=== PATIENT | male | born 1955 | race Caucasian/White ===

== ENCOUNTER → 2021-04-11 | Outpatient (CLI) | payer MEDICARE ==
--- NOTE | 2021-04-11 17:59 | ECHOF ---
Referral Reason:R6.00 Localized edema R53.83Other fatigue MEASUREMENTS -------- HEIGHT: 172.7 cm WEIGHT: 117.9 kg BP: 140/84 RVIDd: 3.4 cm (< 3.3) IVSd: 1.4 cm (0.6 - 1.1) LVIDd: 4.5 cm (3.9 - 5.3) LVPWd: 1.2 cm (0.6 - 1.1) IVSs: 2.0 cm LVIDs: 3.0 cm LVPWs: 1.7 cm LA Diam: 3.5 cm (2.7 - 3.8) LAESV Index (A-L): 25.97 ml/m Ao Diam: 3.7 cm (2.0 - 3.7) AV Cusp: 2.5 cm (1.5 - 2.6) MV EXCURSION: 15.965 mm (> 18.000) MV EF SLOPE: 42 mm/s (70 - 150) EPSS: 0.9 cm MV E Sebas: 0.53 m/s MV DecT: 276 ms MV A Sebas: 0.60 m/s MV E/A Ratio: 0.88 RAP: 5.00 mmHg RVSP: 41.85 mmHg TAPSE: 14.48 mm FINDINGS -------- Sinus rhythm. This was a technically adequate study. The left ventricular size is normal. There is moderate concentric left ventricular hypertrophy. O verall left ventricular systolic function is normal with, an EF between 60 - 65 %. The right ventricle is mildly enlarged. Normal LA size by volume 22+/-6 ml/m2. The right atrium is normal in size. Interatrial and interventricular septum intact. The aortic valve is trileaflet, and appears structurally normal. No aortic stenosis or regurgitation. The mitral valve is normal. Mild tricuspid regurgitation present. Right ventricular systolic pressure is normal at < 35 mmHg. There is no pulmonic regurgitation present. The aortic root size is normal. Normal inferior vena cava with normal inspiratory collapse consistent with estimated right atrial pre ssure of 5 mmHg. There is no pericardial effusion. CONCLUSIONS -------- 1. The left ventricular size is normal. 2. There is moderate concentric left ventricular hypertrophy. 3. Overall left ventricular systolic function is normal with, an EF between 60 - 65 %. 4. The right ventricle is mildly enlarged. 5. Normal LA size by volume 22+/-6 ml/m2. 6. The aortic valve is trileaflet, and appears structurally normal. No aortic stenosis or regurgitati on. 7. Mild tricuspid regurgitation present. 8. There is no pericardial effusion. WEAVER HAND: Maria Luz Colon RDCS
== END | disposition home or self-care (01) ==
LOC: RADECHMAIN 15:00
PROVIDERS: ATTEND Physician Assistant
DX: I07.1 Rheumatic tricuspid insufficiency (principal)
CPT/HCPCS: 93306

== ENCOUNTER → 2021-08-21 | Outpatient (CLI) | payer MEDICARE ==
--- NOTE | 2021-08-21 07:46 | US ---
EXAMINATION TYPE: US abdomen limited DATE OF EXAM: 08/21/2021 COMPARISON: NONE CLINICAL HISTORY: Abn liver function R94.5. EXAM MEASUREMENTS: Liver Length: 17.9 cm Gallbladder Wall: 0.2 cm CBD: 0.4 cm Right Kidney: 10.7 x 5.6 x 5.3 cm Patient of large body habitus carrying most of his weight in his abdomen, extensive overlying bowel g as. Technically difficult, limited study. Pancreas: somewhat obscured by overlying bowel Liver: increased attenuation, measures upper limits of normal. Gallbladder: wnl as seen, limited visualization Evidence for sonographic Francis's sign: no CBD: wnl, limited views Right Kidney: wnl as seen limited views IMPRESSION hepatic steatosis.:
== END | disposition home or self-care (01) ==
LOC: RADUSWWP 06:56
PROVIDERS: ATTEND Family Medicine
DX: K76.0 Fatty (change of) liver, not elsewhere classified (principal)
CPT/HCPCS: 76705

== ENCOUNTER → 2021-08-25 | Outpatient (CLI) | payer MEDICARE ==
[2021-08-25 21:07] LABS: Protein, Total 5.3 g/dL (6.2-8.2)
[2021-08-26 05:48] LABS: Creatine Kinase 9389 U/L (35-257); Vitamin B12 <150.0 pg/mL (200.0-944.0)
[2021-08-26 14:37] LABS: Albumin 2.93 g/dL (3.80-4.90); Gamma Globulin 0.92 g/dL (0.70-1.50)
== END | disposition home or self-care (01) ==
LOC: LABWHC1 12:42
PROVIDERS: ATTEND Psychiatry & Neurology Pain Medicine
DX: M62.81 Muscle weakness (generalized) (principal)
CPT/HCPCS: 36415; 82550; 82607; 83519; 84165; 85652

== ENCOUNTER 2022-08-15 10:33 | Emergency (ER) | payer MEDICARE ==
[2022-08-15 10:39] VITALS: TEMP 97.5
[2022-08-15] MEDS ORDERED: SODIUM CHLORIDE 0.9% 1,000 ML IV STA (12:00)
[2022-08-15] MEDS ORDERED: ONDANSETRON 4 MG/2 ML VIAL IVP STA (12:00)
[2022-08-15] MEDS ORDERED: HYDROmorphone 0.5 MG/0.5 ML SYRINGE IVP STA (12:00)
[2022-08-15] MEDS ORDERED: diphenhydrAMINE 50 MG/ML 1 ML VIAL IVP STA (12:01)
[2022-08-15] MEDS ORDERED: methylPREDNISolone SOD SUCCI 125 MG/2 ML VIAL IV STA (12:01)
[2022-08-15] MEDS ORDERED: FAMOTIDINE 20 MG/2 ML VIAL IV STA (12:01)
[2022-08-15 12:23] LABS: Basophils % (A) 0 %; Eosinophils % (A) 0 %; HCT 44.7 % (39.0-53.0); Lymphocytes # (A) 0.8 k/uL (1.0-4.8); Lymphocytes % (A) 6 %; MCHC 33.6 g/dL (31.0-37.0); MCV 92.2 fL (80.0-100.0); Mean Platelet Volume 7.6; Monocytes # (A) 0.4 k/uL (0-1.0); Monocytes % (A) 3 %; Neutrophils # (A) 10.8 k/uL (1.3-7.7); Neutrophils % (A) 90 %; Platelet Count 281 k/uL (150-450); RBC 4.85 m/uL (4.30-5.90); RDW 13.2 % (11.5-15.5); WBC 12.1 k/uL (3.8-10.6)
[2022-08-15 12:37] LABS: Albumin 3.9 g/dL (3.5-5.0); Calcium 8.7 mg/dL (8.4-10.2); Potassium 3.8 mmol/L (3.5-5.1); Total Bilirubin 0.5 mg/dL (0.2-1.3); Total Protein 6.3 g/dL (6.3-8.2)
[2022-08-15 12:51] VITALS: RESP 18
--- NOTE | 2022-08-15 13:20 | ED ---
Abdominal Pain HPI - General Chief Complaint: Abdominal Pain Stated Complaint: Abd Pain Time Seen by Provider: 08/15/22 11:03 Source: patient Mode of arrival: ambulatory Limitations: no limitations - History of Present Illness Initial Comments: Patient is a 66-year-old male who presents to the emergency department with chief complaint of abdominal pain. Abdominal pain started when patient woke up this morning. Describes it as consistent aching pain in his right lower abdomen. 7/10 in severity. Pain radiates to the right flank. Patient has associated nausea and chills. Has not taken temperature at home. Denies vomiting, diarrhea or blood in stool, burning with urination, increased urinary frequency/urgency, blood in urine. Patient does admit to history of kidney stones. Denies history of abdominal surgery. Last bowel movement was last ni ght which patient states was normal, nonbloody. - Related Data Previous Rx's Medication Instructions Recorded Ibuprofen [Motrin] 800 mg PO Q6H PRN #30 tab 08/15/22 Ondansetron [Zofran] 4 mg PO Q8HR PRN #12 tab 08/15/22 Tamsulosin [Flomax] 0.4 mg PO DAILY #14 cap 08/15/22 Allergies Allergy/AdvReac Type Severity Reaction Status Date / Time Iodinated Contrast Media Allergy Rash/Hives Verified 08/15/22 10:37 Review of Systems ROS Statement: Those systems with pertinent positive or pertinent negative responses have been documented in the HPI. ROS Other: All systems not noted in ROS Statement are negative. Past Medical History Additional Past Medical History / Comment(s): auto immune disease History of Any Multi-Drug Resistant Organisms: None Reported Past Surgical History: No Surgical Hx Reported Past Psychological History: No Psychological Hx Reported Smoking Status: Never smoker Past Alcohol Use History: Occasional Past Drug Use History: None Reported General Exam Limitations: no limitations General appearance: alert, in no apparent distress Head exam: Present: atraumatic, normocephalic, normal inspection Eye exam: Present: normal appearance, PERRL, EOMI. Absent: scleral icterus, conjunctival injection, periorbital swelling Respiratory exam: Present: normal lung sounds bilaterally. Absent: respiratory distress, wheezes, rales, rhonchi, stridor Cardiovascular Exam: Present: regular rate, normal rhythm, normal heart sounds. Absent: systolic murmur, diastolic murmur, rubs, gallop, clicks GI/Abdominal exam: Present: soft, normal bowel sounds. Absent: distended, tenderness, guarding, rebound, rigid Back exam: Present: normal inspection, full ROM. Absent: tenderness, CVA tenderness (R), CVA tenderness (L), paraspinal tenderness, vertebral tenderness Neurological exam: Present: alert, oriented X3, CN II-XII intact Psychiatric exam: Present: normal affect, normal mood Skin exam: Present: warm, dry, intact, normal color. Absent: rash Course Vital Signs 08/15/22 08/15/22 10:37 12:50 Temperature 97.5 F L Pulse Rate 50 L 52 L Respiratory 16 18 Rate Blood Pressure 130/76 160/92 O2 Sat by Pulse 100 96 Oximetry Medical Decision Making - Medical Decision Making This is 66-year-old male presenting with right lower quadrant pain. Patient appears to be in pain although the abdomen is nontender. No CVA tenderness. Afebrile. Laboratory studies obtained. There is mild leukocytosis at 12.1. Lactic acid is mildly elevated at 2.2, likely due to dehydration. Liver enzymes and bilirubin are within normal limits. Urinalysis is not indicative of infection. Other laboratory studies were unremarkable. 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 Pain and nausea controlled. Patient given fluid bolus. Results discussed with patient. This is a well-appearing patient, no fever, acceptable laboratory studies, no YAMILETH, limited hydronephrosis, pain controlled. It is reasonable for her to manage symptoms at home. I did offer patient admission for pain control. He declined. Patient will be discharged with Motrin, Zofran, Flomax. He'll follow-up with urology. Patient sent home with a urine strainer. Dr. Bolanos is my attending. - Lab Data Result diagrams: 08/15/22 12:12 08/15/22 12:12 Lab Results 08/15/22 08/15/22 08/15/22 Range/Units 12:12 12:12 12:12 WBC 12.1 H (3.8-10.6) k/uL RBC 4.85 (4.30-5.90) m/uL Hgb 15.0 (13.0-17.5) gm/dL Hct 44.7 (39.0-53.0) % MCV 92.2 (80.0-100.0) fL MCH 31.0 (25.0-35.0) pg MCHC 33.6 (31.0-37.0) g/dL RDW 13.2 (11.5-15.5) % Plt Count 281 (150-450) k/uL MPV 7.6 Neutrophils % 90 % Lymphocytes % 6 % Monocytes % 3 % Eosinophils % 0 % Basophils % 0 % Neutrophils # 10.8 H (1.3-7.7) k/uL Lymphocytes # 0.8 L (1.0-4.8) k/uL Monocytes # 0.4 (0-1.0) k/uL Eosinophils # 0.0 (0-0.7) k/uL Basophils # 0.0 (0-0.2) k/uL Sodium 138 (137-145) mmol/L Potassium 3.8 (3.5-5.1) mmol/L Chloride 104 (98-107) mmol/L Carbon Dioxide 29 (22-30) mmol/L Anion Gap 5 mmol/L BUN 20 (9-20) mg/dL Creatinine 1.11 (0.66-1.25) mg/dL Est GFR (CKD-EPI)AfAm 79 (>60 ml/min/1.73 sqM) Est GFR (CKD-EPI)NonAf 68 (>60 ml/min/1.73 sqM) Glucose 138 H (74-99) mg/dL Lactic Ac Sepsis Rflx Plasma Lactic Acid Travis 2.2 H* (0.7-2.0) mmol/L Calcium 8.7 (8.4-10.2) mg/dL Total Bilirubin 0.5 (0.2-1.3) mg/dL AST 22 (17-59) U/L ALT 20 (4-49) U/L Alkaline Phosphatase 71 (38-126) U/L Total Protein 6.3 (6.3-8.2) g/dL Albumin 3.9 (3.5-5.0) g/dL Lipase 116 (23-300) U/L Urine Color Urine Appearance (Clear) Urine pH (5.0-8.0) Ur Specific [place] (1.001-1.035) Urine Protein (Negative) Urine Glucose (UA) (Negative) Urine Ketones (Negative) Urine Blood (Negative) Urine Nitrite (Negative) Urine Bilirubin (Negative) Urine Urobilinogen (<2.0) mg/dL Ur Leukocyte Esterase (Negative) Urine RBC (0-5) /hpf Urine WBC (0-5) /hpf Ur Squamous Epith Cells (0-4) /hpf Urine Mucus (None) /hpf Urine Yeast (Budding) (None) /hpf 08/15/22 08/15/22 Range/Units 12:41 14:37 WBC (3.8-10.6) k/uL RBC (4.30-5.90) m/uL Hgb (13.0-17.5) gm/dL Hct (39.0-53.0) % MCV (80.0-100.0) fL MCH (25.0-35.0) pg MCHC (31.0-37.0) g/dL RDW (11.5-15.5) % Plt Count (150-450) k/uL MPV Neutrophils % % Lymphocytes % % Monocytes % % Eosinophils % % Basophils % % Neutrophils # (1.3-7.7) k/uL Lymphocytes # (1.0-4.8) k/uL Monocytes # (0-1.0) k/uL Eosinophils # (0-0.7) k/uL Basophils # (0-0.2) k/uL Sodium (137-145) mmol/L Potassium (3.5-5.1) mmol/L Chloride (98-107) mmol/L Carbon Dioxide (22-30) mmol/L Anion Gap mmol/L BUN (9-20) mg/dL Creatinine (0.66-1.25) mg/dL Est GFR (CKD-EPI)AfAm (>60 ml/min/1.73 sqM) Est GFR (CKD-EPI)NonAf (>60 ml/min/1.73 sqM) Glucose (74-99) mg/dL Lactic Ac Sepsis Rflx Y Plasma Lactic Acid Travis (0.7-2.0) mmol/L Calcium (8.4-10.2) mg/dL Total Bilirubin (0.2-1.3) mg/dL AST (17-59) U/L ALT (4-49) U/L Alkaline Phosphatase (38-126) U/L Total Protein (6.3-8.2) g/dL Albumin (3.5-5.0) g/dL Lipase (23-300) U/L Urine Color Yellow Urine Appearance Clear (Clear) Urine pH 6.5 (5.0-8.0) Ur Specific [place] 1.021 (1.001-1.035) Urine Protein Trace H (Negative) Urine Glucose (UA) Negative (Negative) Urine Ketones Negative (Negative) Urine Blood Large H (Negative) Urine Nitrite Negative (Negative) Urine Bilirubin Negative (Negative) Urine Urobilinogen <2.0 (<2.0) mg/dL Ur Leukocyte Esterase Negative (Negative) Urine RBC >182 H (0-5) /hpf Urine WBC 6 H (0-5) /hpf Ur Squamous Epith Cells <1 (0-4) /hpf Urine Mucus Rare H (None) /hpf Urine Yeast (Budding) Occasional H (None) /hpf Disposition Clinical Impression: Kidney stone on right side, Abdominal pain, Nausea and vomiting Disposition: HOME SELF-CARE Condition: Good Instructions (If sedation given, give patient instructions): Kidney Stones (E D), How to Strain Your Urine (ED) Additional Instructions: Take medication as directed. Flomax will be started tomorrow. It is very important to increase water intake which will help pass the stone. Your CT today showed mild right hydronephrosis secondary to obstructing 5 mm calculus at the ureteropelvic junction/proximal right ureter.There was also incidental noncalcif ied plaque of your superior mesenteric artery extending 2.2 cm with at least 50% stenosis. Please talk to your primary care provider about this. Please follow up with urology in 1-2 days. Strain your urine convinced him to urology appointment. Return to the emergency department if youj experience new, concerning, or worsening symptoms. Prescriptions: Tamsulosin [Flomax] 0.4 mg PO DAILY #14 cap Ibuprofen [Motrin] 800 mg PO Q6H PRN #30 tab PRN Reason: Pain Ondansetron [Zofran] 4 mg PO Q8HR PRN #12 tab PRN Reason: Nausea Is patient prescribed a controlled substance at d/c from ED?: No Referrals: Nonstaff,Physician [Primary Care Provider] - 1-2 days Mal Courtney MD [STAFF PHYSICIAN] - 1-2 days
--- NOTE | 2022-08-15 14:12 | CT ---
EXAMINATION TYPE: CT abdomen pelvis w con CT DLP: 1997.4 mGycm, Automated exposure control for dose reduction was used. DATE OF EXAM: 08/15/2022 1:39 PM COMPARISON: None CLINICAL INDICATION:Male, 66 years old with history of RLQ pain-appy vs stone; RLQ Pain-Appy vs Stone TECHNIQUE: Axial CT of the abdomen and pelvis. Sagittal and coronal reformats were created on a [employer] workstation. Contrast used:100 ml mL of Isovue 370 with IV Contrast, Oral contrast used: without Oral Contrast FINDINGS: LOWER CHEST: Groundglass opacities are seen throughout the lower lungs. ABDOMEN LIVER: Unremarkable GALLBLADDER AND BILE DUCTS: Unremarkable. PANCREAS: Unremarkable. SPLEEN: Unremarkable. ADRENAL GLANDS: Unremarkable. KIDNEYS AND URETERS: Mild right hydronephrosis from obstructing 5 mm calculus at the ureteropelvic ju nction/proximal right ureter. No evidence of left hydronephrosis. Left renal cyst present left nonobs tructing calculus suggested in the lower pole the ureter on the left is patent. PELVIS BLADDER: Unremarkable REPRODUCTIVE: Unremarkable. ABDOMEN & PELVIS STOMACH AND BOWEL: No evidence of bowel obstruction. Appendix is normal. PERITONEUM: No evidence of pneumoperitoneum or free fluid. VASCULATURE: No evidence of aortic aneurysm. A atherosclerotic plaque at the origin of the superior m esenteric artery with at least 50% stenosis extending approximately 2.2 cm in length. Great vessels o f the aorta are patent. MUSCULOSKELETAL: No acute osseous abnormalities LYMPH NODES: No gross evidence for lymphadenopathy. SOFT TISSUE/ABDOMINAL WALL: Right fat containing inguinal hernia. Fat-containing umbilical hernia. IMPRESSION: 1. Mild right hydronephrosis secondary obstructing 5 mm calculus at the ureteropelvic junction/proxi mal right ureter. 2. Normal appendix. 3. 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
[2022-08-15] MEDS ORDERED: TAMSULOSIN 0.4 MG CAP.ER.24H PO STA (14:14)
[2022-08-15] MEDS ORDERED: KETOROLAC 15 MG/ML 1 ML VIAL IVP STA (14:14)
[2022-08-15 14:56] LABS: Appearance,Urine Clear (Clear); Bilirubin,Urine Negative (Negative); Blood,Urine Large (Negative); Budding Yeast,Urine Occasional /hpf; Color,Urine Yellow; Glucose,Urine (UA) Negative (Negative); Ketones,Urine Negative (Negative); Leukocyte Esterase,Urine Negative (Negative); Mucus,Urine Rare /hpf; Nitrite,Urine Negative (Negative); PH, Urine 6.5 (5.0-8.0); Protein,Urine Trace (Negative); RBC,Urine >182 /hpf (0-5); Specific Gravity,Urine 1.021 (1.001-1.035); Squamous Epithelial Cell,Urine <1 /hpf (0-4); Urobilinogen,Urine <2.0 mg/dL (<2.0); WBC,Urine 6 /hpf (0-5)
[2022-08-15 15:23] VITALS: BP 145/84; PULSE 84
== END 2022-08-15 15:22 | disposition home or self-care (01) ==
LOC: EC 10:33
DX: N13.2 Hydronephrosis with renal and ureteral calculous obstruction (principal); Z91.041 Radiographic dye allergy status
CPT/HCPCS: 36415; 80053; 83605; 83690; 85025; 81001; 74177; 99284; 96374; 96375 ×5; 96361; J1200; J2930; J2405; J1885; J1170; Q9967

== ENCOUNTER 2022-08-21 11:17 | Emergency (ER) | payer MEDICARE ==
[2022-08-21 12:19] LABS: Basophils % (A) 0 %; Eosinophils % (A) 0 %; HCT 45.7 % (39.0-53.0); HGB 15.3 gm/dL (13.0-17.5); Lymphocytes # (A) 0.8 k/uL (1.0-4.8); Lymphocytes % (A) 7 %; MCH 30.4 pg (25.0-35.0); MCHC 33.4 g/dL (31.0-37.0); MCV 90.9 fL (80.0-100.0); Mean Platelet Volume 7.4; Monocytes # (A) 0.6 k/uL (0-1.0); Monocytes % (A) 5 %; Neutrophils # (A) 11.1 k/uL (1.3-7.7); Neutrophils % (A) 88 %; Platelet Count 346 k/uL (150-450); RBC 5.03 m/uL (4.30-5.90); RDW 12.7 % (11.5-15.5); WBC 12.6 k/uL (3.8-10.6)
[2022-08-21 12:29] LABS: Appearance,Urine Clear (Clear); Bilirubin,Urine Negative (Negative); Blood,Urine Large (Negative); Color,Urine Yellow; Glucose,Urine (UA) Negative (Negative); Ketones,Urine Negative (Negative); Leukocyte Esterase,Urine Negative (Negative); Mucus,Urine Rare /hpf; Nitrite,Urine Negative (Negative); PH, Urine 5.5 (5.0-8.0); Protein,Urine Negative (Negative); RBC,Urine 25 /hpf (0-5); Specific Gravity,Urine 1.015 (1.001-1.035); Urobilinogen,Urine <2.0 mg/dL (<2.0); WBC,Urine 2 /hpf (0-5)
[2022-08-21 12:42] LABS: Albumin 4.2 g/dL (3.5-5.0); Calcium 8.9 mg/dL (8.4-10.2); Potassium 4.5 mmol/L (3.5-5.1); Total Bilirubin 0.8 mg/dL (0.2-1.3); Total Protein 6.8 g/dL (6.3-8.2)
--- NOTE | 2022-08-21 12:43 | ED ---
General Adult HPI - General Chief complaint: Abdominal Pain Stated complaint: Kidney stones Time Seen by Provider: 08/21/22 12:34 Source: patient, RN notes reviewed Mode of arrival: ambulatory Limitations: no limitations - History of Present Illness Initial comments: Patient is a pleasant 66-year-old male presenting to the emergency department with concerns with flank pain. Patient was here a week ago and diagnosed with kidney stone. A lombardo has had some intermittently decreased urination however last one was normal. Patient has had less bowel movements than normal and has been taking enemas and stool softeners with some help. Patient feels his abdomen is bloated. Patient states since getting here his abdomen feels much less bloated and discomfort is essentially resolved. - Related Data Previous Rx's Medication Instructions Recorded Ibuprofen [Motrin] 800 mg PO Q6H PRN #30 tab 08/15/22 Ondansetron [Zofran] 4 mg PO Q8HR PRN #12 tab 08/15/22 Tamsulosin [Flomax] 0.4 mg PO DAILY #14 cap 08/15/22 Ketorolac [Toradol] 10 mg PO Q6HR PRN #15 tab 08/21/22 Allergies Allergy/AdvReac Type Severity Reaction Status Date / Time Iodinated Contrast Media Allergy Rash/Hives Verified 08/15/22 10:37 Review of Systems ROS Statement: Those systems with pertinent positive or pertinent negative responses have been documented in the HPI. ROS Other: All systems not noted in ROS Statement are negative. Constitutional: Denies: fever Eyes: Denies: eye pain ENT: Denies: ear pain Respiratory: Denies: cough Cardiovascular: Denies: chest pain Endocrine: Denies: fatigue Gastrointestinal: Reports: as per HPI Genitourinary: Reports: as per HPI Musculoskeletal: Denies: arthralgia Skin: Denies: rash Neurological: Denies: weakness Past Medical History Past Medical History: Renal Disease Additional Past Medical History / Comment(s): auto immune disease kidney stone History of Any Multi-Drug Resistant Organisms: None Reported Past Surgical History: No Surgical Hx Reported Past Psychological History: No Psychological Hx Reported Smoking Status: Never smoker Past Alcohol Use History: Occasional Past Drug Use History: None Reported General Exam Limitations: no limitations General appearance: alert, in no apparent distress Head exam: Present: normocephalic Eye exam: Present: normal appearance Neck exam: Present: normal inspection Respiratory exam: Present: normal lung sounds bilaterally Cardiovascular Exam: Present: regular rate, normal rhythm Expanded Peripheral pulses: 2+: Posterior Tibialis (R), Posterior Tibialis (L) GI/Abdominal exam: Present: soft, normal bowel sounds. Absent: distended, tenderness, guarding, rebound, rigid, pulsatile mass Extremities exam: Present: normal inspection. Absent: pedal edema, calf tenderness Back exam: Present: normal inspection. Absent: tenderness, CVA tenderness (R) Neurological exam: Present: alert Psychiatric exam: Present: normal affect, normal mood Skin exam: Present: normal color Course Vital Signs 08/21/22 11:29 Temperature 97.5 F L Pulse Rate 70 Respiratory 20 Rate Blood Pressure 161/101 O2 Sat by Pulse 100 Oximetry Medical Decision Making - Medical Decision Making Patient reevaluated and resting comfortably in bed. Patient remained symptom free. Patient and family updated on results and need for follow-up. Specifically updated on need for repeat kidney function testing. - Lab Data Result diagrams: 08/21/22 11:52 08/21/22 11:52 Lab Results 08/21/22 08/21/22 08/21/22 Range/Units 11:52 11:52 11:52 WBC 12.6 H (3.8-10.6) k/uL RBC 5.03 (4.30-5.90) m/uL Hgb 15.3 (13.0-17.5) gm/dL Hct 45.7 (39.0-53.0) % MCV 90.9 (80.0-100.0) fL MCH 30.4 (25.0-35.0) pg MCHC 33.4 (31.0-37.0) g/dL RDW 12.7 (11.5-15.5) % Plt Count 346 (150-450) k/uL MPV 7.4 Neutrophils % 88 % Lymphocytes % 7 % Monocytes % 5 % Eosinophils % 0 % Basophils % 0 % Neutrophils # 11.1 H (1.3-7.7) k/uL Lymphocytes # 0.8 L (1.0-4.8) k/uL Monocytes # 0.6 (0-1.0) k/uL Eosinophils # 0.0 (0-0.7) k/uL Basophils # 0.0 (0-0.2) k/uL Sodium 134 L (137-145) mmol/L Potassium 4.5 (3.5-5.1) mmol/L Chloride 99 (98-107) mmol/L Carbon Dioxide 25 (22-30) mmol/L Anion Gap 10 mmol/L BUN 23 H (9-20) mg/dL Creatinine 1.57 H (0.66-1.25) mg/dL Est GFR (CKD-EPI)AfAm 52 (>60 ml/min/1.73 sqM) Est GFR (CKD-EPI)NonAf 45 (>60 ml/min/1.73 sqM) Glucose 107 H (74-99) mg/dL Calcium 8.9 (8.4-10.2) mg/dL Total Bilirubin 0.8 (0.2-1.3) mg/dL AST 19 (17-59) U/L ALT 17 (4-49) U/L Alkaline Phosphatase 89 (38-126) U/L Total Protein 6.8 (6.3-8.2) g/dL Albumin 4.2 (3.5-5.0) g/dL Amylase 62 (30-110) U/L Lipase 92 (23-300) U/L Urine Color Yellow Urine Appearance Clear (Clear) Urine pH 5.5 (5.0-8.0) Ur Specific [place] 1.015 (1.001-1.035) Urine Protein Negative (Negative) Urine Glucose (UA) Negative (Negative) Urine Ketones Negative (Negative) Urine Blood Large H (Negative) Urine Nitrite Negative (Negative) Urine Bilirubin Negative (Negative) Urine Urobilinogen <2.0 (<2.0) mg/dL Ur Leukocyte Esterase Negative (Negative) Urine RBC 25 H (0-5) /hpf Urine WBC 2 (0-5) /hpf Urine Mucus Rare H (None) /hpf - Radiology Data Interpreted by me: Abdominal x-ray shows nonobstructive pattern. Disposition Clinical Impression: Renal colic Disposition: HOME SELF-CARE Condition: Stable Instructions (If sedation given, give patient instructions): Kidney Stones (ED), Abdominal Pain (ED) Additional Instructions: Please do follow-up to primary care physician as well as urology in the next couple days for recheck. You will need to have your blood work retested, specifically kidney function. Return for increased pain, fever, unable to urinate, constipation, worsening symptoms or any other concerns. Continue with Flomax. Prescription has been sent to pharmacy Prescriptions: Ketorolac [Toradol] 10 mg PO Q6HR PRN #15 tab PRN Reason: Pain Is patient prescribed a controlled substance at d/c from ED?: No Referrals: Elan Og DO [Primary Care Provider] - 1-2 days Edgar Lagos MD [STAFF PHYSICIAN] - 1-2 days Time of Disposition: 13:25
--- NOTE | 2022-08-21 12:54 | XR ---
EXAMINATION TYPE: XR abdomen 1V DATE OF EXAM: 08/21/2022 COMPARISON: CT abdomen pelvis 08/15/2022 HISTORY: Right flank pain, recent stone TECHNIQUE: Upright KUB image of the abdomen is obtained FINDINGS: Small bowel demonstrates no evidence for dilatation or air fluid levels. Gas and fecal material is seen in non-distended colon. Prominent amount of stool present within the right colon. No convincing evidence for pneumoperitoneum. No definitive calcification overlying both kidneys or along both expected courses of the ureters and urinary bladder. The lung bases are clear. The osseous structures are intact. Mild multilevel degenerative changes visualized spine. IMPRESSION: 1. Overall nonobstructive bowel gas pattern. 2. No definitive calcifications identified.
[2022-08-21] MEDS ORDERED: ACET/COD 300 MG/30 MG STARTER PACK 6 TAB BTL PO STA (13:26)
[2022-08-21 13:47] VITALS: BP 130/85; PULSE 81; RESP 18; TEMP 97.8
== END 2022-08-21 13:44 | disposition home or self-care (01) ==
LOC: EC 11:17
DX: N23 Unspecified renal colic (principal); Z91.041 Radiographic dye allergy status
CPT/HCPCS: 36415; 74018; 80053; 81001; 82150; 83690; 85025; 99284

== ENCOUNTER 2022-09-08 15:40 | Inpatient (IN) | payer MEDICARE ==
[2022-09-08 16:23] LABS: Basophils # (A) 0.1 k/uL (0-0.2); Basophils % (A) 1 %; Eosinophils # (A) 0.1 k/uL (0-0.7); Eosinophils % (A) 0 %; HGB 15.3 gm/dL (13.0-17.5); Lymphocytes # (A) 1.2 k/uL (1.0-4.8); Lymphocytes % (A) 9 %; MCH 30.2 pg (25.0-35.0); MCHC 33.3 g/dL (31.0-37.0); MCV 90.7 fL (80.0-100.0); Mean Platelet Volume 7.3; Monocytes # (A) 0.6 k/uL (0-1.0); Monocytes % (A) 5 %; Neutrophils # (A) 11.2 k/uL (1.3-7.7); Neutrophils % (A) 84 %; Platelet Count 335 k/uL (150-450); RBC 5.07 m/uL (4.30-5.90); WBC 13.4 k/uL (3.8-10.6)
[2022-09-08 16:40] LABS: Calcium 9.1 mg/dL (8.4-10.2); Potassium 4.4 mmol/L (3.5-5.1); Total Bilirubin 0.7 mg/dL (0.2-1.3); Total Protein 6.4 g/dL (6.3-8.2)
[2022-09-08 16:43] LABS: Appearance,Urine Clear (Clear); Bilirubin,Urine Negative (Negative); Blood,Urine Large (Negative); Calcium Oxalate Crystals,Urine Rare /hpf; Color,Urine Yellow; Glucose,Urine (UA) Negative (Negative); Ketones,Urine Negative (Negative); Leukocyte Esterase,Urine Negative (Negative); Mucus,Urine Few /hpf; Nitrite,Urine Negative (Negative); Protein,Urine Trace (Negative); RBC,Urine >182 /hpf (0-5); Specific Gravity,Urine 1.027 (1.001-1.035); Squamous Epithelial Cell,Urine <1 /hpf (0-4); Urobilinogen,Urine <2.0 mg/dL (<2.0); WBC,Urine 4 /hpf (0-5)
--- NOTE | 2022-09-08 20:08 | XR ---
EXAMINATION TYPE: XR KUB DATE OF EXAM: 09/08/2022 7:51 PM INDICATION: Patient age:Male; 67 years old; Reason for study: Flank pain; COMPARISON: None. TECHNIQUE: One radiographic view of the abdomen was obtained. FINDINGS: The bowel gas pattern is nonspecific without dilated loops of small or large bowel. There i s no evidence for organomegaly or pneumoperitoneum. The osseous structures are intact. No abnormal calcifications are present. Fecal material and gas are demonstrated throughout the colon and rectum. IMPRESSION: Nonspecific bowel gas pattern without radiographic evidence for acute process.
[2022-09-08] MEDS ORDERED: HYDROmorphone 0.5 MG/0.5 ML SYRINGE IM STA (20:16)
[2022-09-08] MEDS ORDERED: KETOROLAC 15 MG/ML 1 ML VIAL IM STA (20:16)
--- NOTE | 2022-09-08 20:20 | ED ---
General Adult HPI - General Chief complaint: Urogenital Stated complaint: poss kidney stones Time Seen by Provider: 09/08/22 19:44 Source: patient, RN notes reviewed, old records reviewed Mode of arrival: ambulatory - History of Present Illness Initial comments: This is a 67-year-old male who presents emergency Department complaining of right-sided flank pain. Patient states he was diagnosed with a 5 mm kidney stone at the beginning of the month and has been unable to get into urology. Patient states the pain comes and goes and when it comes it is very severe. Patient states he is currently up some pain now. Patient states he feels as though he is not urinating as much as he used to. Patient denies any fever chills per patient states the pain does start in the back and radiated around to the flank. Patient denies any dysuria patient denies any hematuria. - Related Data Previous Rx's Medication Instructions Recorded Ibuprofen [Motrin] 800 mg PO Q6H PRN #30 tab 08/15/22 Ondansetron [Zofran] 4 mg PO Q8HR PRN #12 tab 08/15/22 Tamsulosin [Flomax] 0.4 mg PO DAILY #14 cap 08/15/22 Ketorolac [Toradol] 10 mg PO Q6HR PRN #15 tab 08/21/22 Allergies Allergy/AdvReac Type Severity Reaction Status Date / Time Iodinated Contrast Media Allergy Rash/Hives Verified 09/08/22 16:10 Review of Systems ROS Statement: Those systems with pertinent positive or pertinent negative responses have been documented in the HPI. ROS Other: All systems not noted in ROS Statement are negative. Past Medical History Past Medical History: Renal Disease Additional Past Medical History / Comment(s): auto immune disease kidney stone History of Any Multi-Drug Resistant Organisms: None Reported Past Surgical History: No Surgical Hx Reported Past Psychological History: No Psychological Hx Reported Smoking Status: Never smoker Past Alcohol Use History: Occasional Past Drug Use History: None Reported General Exam - General Exam Comments Initial Comments: GENERAL: Patient is well-developed and well-nourished. Patient is nontoxic and well-hydrated and is in moderate distress. ENT: Neck is soft and supple. No significant lymphadenopathy is noted. Oropharynx is clear. Moist mucous membranes. Neck has full range of motion without eliciting any pain. EYES: The sclera were anicteric and conjunctiva were pink and moist. Extraocular move ments were intact and pupils were equal round and reactive to light. Eyelids were unremarkable. PULMONARY: Unlabored respirations. Good breath sounds bilaterally. No audible rales rhonchi or wheezing was noted. CARDIOVASCULAR: There is a regular rate and rhythm without any murmurs gallops or rubs. ABDOMEN: Soft and nontender with normal bowel sounds. SKIN: Skin is clear with no lesions or rashes and otherwise unremarkable. NEUROLOGIC: Patient is alert and oriented x3. Cranial nerves II through XII are grossly intact. Motor and sensory are also intact. Normal speech, volume and content. Symmetrical smile. MUSCULOSKELETAL: Normal extremities with adequate strength and full range of motion. LYMPHATICS: No significant lymphadenopathy is noted PSYCHIATRIC: Normal psychiatric evaluation. Course Vital Signs 09/08/22 16:08 Temperature 98.4 F Pulse Rate 70 Respiratory 16 Rate Blood Pressure 124/79 O2 Sat by Pulse 99 Oximetry Medical Decision Making - Medical Decision Making Was pt. sent in by a medical professional or institution? @ -No Did you speak to anyone other than the patient for history? @ - Did you review nursing and triage notes? @ -Agree with nursing and triage notes Were old charts reviewed? @ -I looked up previous CAT scan results of the abdomen and pelvis Differential Diagnosis? @ -Differential Abdominal Pain Men: Appendicitis, cholecystitis, diverticulosis, ischemic bowel, pancreatitis, hepatitis, UTI, gastroenteritis, AAA, incarcerated hernia, bowel obstruction, constipation, inflammatory bowel, hepatitis, peptic ulcer disease, splenic infarction, perforated viscus, testicular torsion, this is not meant to be an all-inclusive list EKG interpreted by me (3pts min.)? @ -None X-rays interpreted by me (1pt min.)? @ -KUB was interpreted by myself as I did not see a stone on x-ray. CT interpreted by me (1pt min.)? @ -No U/S interpreted by me (1pt. min.)? @ -No What testing was considered but not performed? (CT, X-rays, U/S, labs)? Why? @ -I did consider repeating computed tomography scan but I spoke with urology in the stated they did not want a repeat CT. What meds were considered but not given? Why? @ -No Did you discuss the management of the patient with other professionals? @ -Eye spoke with the urologist Dr. dunne and he agreed to admit the patient so I admitted the patient Did you reconcile home meds? @ -No Was smoking cessation discussed for >3mins.? @ -No Was critical care preformed (if so, how long)? @ -No Were there social determinants of health that impacted care today? How? (Homelessness, low income, unemployed, alcoholism, drug addiction, transportation, low edu. Level, literacy, decrease access to med. care, halfway, rehab)? @ -No Was there de-escalation of care discussed even if they declined? (Discuss DNR or withdrawal of care, Hospice)? @ -No What co-morbidities impacted this encounter? (DM, HTN, Smoking, COPD, CAD, Cancer, CVA, Hep., AIDS, mental health diagnosis, sleep apnea, morbid obesity)? @ -No Was patient admitted / discharged? @ -Kidney stone. Patient was given an IV liter of normal saline 0.5 of Dilaudid and Toradol in the emergency department I spoke with Dr. Yang he agreed to admit the patient since this was third visit to the emergency department he was having difficulty getting into the office. Undiagnosed new problem with uncertain prognosis? @ -No Drug Therapy requiring intensive monitoring for toxicity (Heparin, Nitro, Insulin, Cardizem)? @ -No Were any procedures done? @ -No Diagnosis/symptom? @ -Kidney stone Acute, or Chronic, or Acute on Chronic? @ -Acute Uncomplicated (without systemic symptoms) or Complicated (systemic symptoms)? @ -Uncomplicated Side effects of treatment? @ -No Exacerbation, Progression, or Severe Exacerbation] @ -No Poses a threat to life or bodily function? @ -No - Lab Data Result diagrams: 09/08/22 16:14 09/08/22 16:14 Lab Results 09/08/22 09/08/22 09/08/22 Range/Units 16:14 16:14 16:17 WBC 13.4 H (3.8-10.6) k/uL RBC 5.07 (4.30-5.90) m/uL Hgb 15.3 (13.0-17.5) gm/dL Hct 46.0 (39.0-53.0) % MCV 90.7 (80.0-100.0) fL MCH 30.2 (25.0-35.0) pg MCHC 33.3 (31.0-37.0) g/dL RDW 13.0 (11.5-15.5) % Plt Count 335 (150-450) k/uL MPV 7.3 Neutrophils % 84 % Lymphocytes % 9 % Monocytes % 5 % Eosinophils % 0 % Basophils % 1 % Neutrophils # 11.2 H (1.3-7.7) k/uL Lymphocytes # 1.2 (1.0-4.8) k/uL Monocytes # 0.6 (0-1.0) k/uL Eosinophils # 0.1 (0-0.7) k/uL Basophils # 0.1 (0-0.2) k/uL Sodium 141 (137-145) mmol/L Potassium 4.4 (3.5-5.1) mmol/L Chloride 106 (98-107) mmol/L Carbon Dioxide 29 (22-30) mmol/L Anion Gap 6 mmol/L BUN 25 H (9-20) mg/dL Creatinine 1.30 H (0.66-1.25) mg/dL Est GFR (CKD-EPI)AfAm 65 (>60 ml/min/1.73 sqM) Est GFR (CKD-EPI)NonAf 56 (>60 ml/min/1.73 sqM) Glucose 143 H (74-99) mg/dL Calcium 9.1 (8.4-10.2) mg/dL Total Bilirubin 0.7 (0.2-1.3) mg/dL AST 19 (17-59) U/L ALT 18 (4-49) U/L Alkaline Phosphatase 84 (38-126) U/L Total Protein 6.4 (6.3-8.2) g/dL Albumin 4.0 (3.5-5.0) g/dL Urine Color Yellow Urine Appearance Clear (Clear) Urine pH 6.0 (5.0-8.0) Ur Specific Loiza 1.027 (1.001-1.035) Urine Protein Trace H (Negative) Urine Glucose (UA) Negative (Negative) Urine Ketones Negative (Negative) Urine Blood Large H (Negative) Urine Nitrite Negative (Negative) Urine Bilirubin Negative (Negative) Urine Urobilinogen <2.0 (<2.0) mg/dL Ur Leukocyte Esterase Negative (Negative) Urine RBC >182 H (0-5) /hpf Urine WBC 4 (0-5) /hpf Ur Squamous Epith Cells <1 (0-4) /hpf Calcium Oxalate Crystal Rare H (None) /hpf Urine Mucus Few H (None) /hpf Disposition Clinical Impression: Kidney stone Disposition: ADMITTED IP TO THIS HOSP Referrals: Elan Og DO [Primary Care Provider] - 1-2 days Time of Disposition: 20:37
[2022-09-08] MEDS ORDERED: SODIUM CHLORIDE 0.9% 1,000 ML IV ONE (20:36)
[2022-09-08] MEDS ORDERED: HYDROmorphone 0.5 MG/0.5 ML SYRINGE IVP STA (20:37)
[2022-09-08] MEDS ORDERED: KETOROLAC 15 MG/ML 1 ML VIAL IVP STA (20:37)
[2022-09-09] MEDS ORDERED: NALOXONE 0.4 MG/ML 1 ML VIAL IV PRN (00:23)
[2022-09-09] MEDS: SODIUM CHLORIDE 0.9% 1,000 ML IV SCH ×2 (02:58→11:34)
[2022-09-09] MEDS ORDERED: KETOROLAC 15 MG/ML 1 ML VIAL IVP PRN (09:20)
[2022-09-09] MEDS ORDERED: ONDANSETRON 4 MG/2 ML VIAL IVP PRN (09:47)
--- NOTE | 2022-09-09 09:53 | P.GSHP ---
History of Present Illness H&P Date: 09/09/22 Chief Complaint: Right flank pain The patient is a 67-year-old male who presented to the emergency department on 09/08/22 with complaints of right-sided flank pain. He was seen in the emergency department on 08/15/22 with complaints of abdominal pain and found to have mild right hydronephrosis secondary to an obstructing 5 mm calculus at the UPJ/proximal right ureter. At that time the patient was agreeable to manage his symptoms at home and was discharged. The patient also reports having a kidney stone when he was younger that passed without any intervention. - Constitutional Constitutional: Reports chills, Denies fever - Cardiovascular Cardiovascular: Denies chest pain, Denies shortness of breath - Gastrointestinal Gastrointestinal: Reports abdominal pain - Genitourinary (Male) Genitourinary: Reports flank pain, Reports kidney stones, Denies dysuria, Denies hematuria Past Medical History Past Medical History: Renal Disease Additional Past Medical History / Comment(s): auto immune disease, kidney stone History of Any Multi-Drug Resistant Organisms: None Reported Past Surgical History: No Surgical Hx Reported Past Anesthesia/Blood Transfusion Reactions: No Reported Reaction Past Psychological History: No Psychological Hx Reported Smoking Status: Never smoker Past Alcohol Use History: Occasional Past Drug Use History: None Reported Medications and Allergies Home Medications Medication Instructions Recorded Confirmed Type Ibuprofen [Motrin] 800 mg PO Q6H PRN #30 tab 08/15/22 09/08/22 Rx Hydroxychloroquine Sulfate 400 mg PO DIRECTED 09/08/22 09/08/22 History [Plaquenil] Ketorolac 0.5% Ophth Soln [Acular 1 drop RIGHT EYE TID 09/08/22 09/08/22 History 0.5%] Levothyroxine Sodium 200 mcg PO DAILY 09/08/22 09/08/22 History Ofloxacin 0.3% Ophth Soln [Ocuflox 1 drop RIGHT EYE TID 09/08/22 09/08/22 History Ophth Soln] Omeprazole 20 mg PO DAILY 09/08/22 09/08/22 History mycophenolate mofetiL [Cellcept] 1,500 mg PO BID 09/08/22 09/08/22 History predniSONE 10 mg PO DAILY 09/08/22 09/08/22 History prednisoLONE ACETATE 1% OPHTH 1 drop RIGHT EYE TID 09/08/22 09/08/22 History [Pred Forte 1%] Allergies Allergy/AdvReac Type Severity Reaction Status Date / Time Iodinated Contrast Media Allergy Rash/Hives Verified 09/08/22 21:24 Surgical - Exam Vital Signs Temp Pulse Resp BP Pulse Ox 98.4 F 70 16 124/79 99 09/08/22 16:08 09/08/22 16:08 09/08/22 16:08 09/08/22 16:08 09/08/22 16:08 General: Well developed, well nourished. No acute distress. HEENT: Head is atraumatic, normocephalic. Lungs: Respirations even and nonlabored. On RA Abdomen/GI: Soft. No guarding, rigidity, or abdominal tenderness. : No suprapubic tenderness. No CVA tenderness Skin: Warm and dry Neurologic: Awake, alert and oriented times 3. CN II-XII grossly intact. No f ocal deficits. Psychiatric: Appropriate mood and affect. Results - Labs 09/08/22 16:14 09/08/22 16:14 Abnormal Lab Results - Last 24 Hours (Table) 09/08/22 09/08/22 09/08/22 Range/Units 16:14 16:14 16:17 WBC 13.4 H (3.8-10.6) k/uL Neutrophils # 11.2 H (1.3-7.7) k/uL BUN 25 H (9-20) mg/dL Creatinine 1.30 H (0.66-1.25) mg/dL Glucose 143 H (74-99) mg/dL Urine Protein Trace H (Negative) Urine Blood Large H (Negative) Urine RBC >182 H (0-5) /hpf Calcium Oxalate Crystal Rare H (None) /hpf Urine Mucus Few H (None) /hpf Diabetes panel 09/08/22 Range/Units 16:14 Sodium 141 (137-145) mmol/L Potassium 4.4 (3.5-5.1) mmol/L Chloride 106 (98-107) mmol/L Carbon Dioxide 29 (22-30) mmol/L BUN 25 H (9-20) mg/dL Creatinine 1.30 H (0.66-1.25) mg/dL Glucose 143 H (74-99) mg/dL Calcium 9.1 (8.4-10.2) mg/dL AST 19 (17-59) U/L ALT 18 (4-49) U/L Alkaline Phosphatase 84 (38-126) U/L Total Protein 6.4 (6.3-8.2) g/dL Albumin 4.0 (3.5-5.0) g/dL Calcium panel 09/08/22 Range/Units 16:14 Calcium 9.1 (8.4-10.2) mg/dL Albumin 4.0 (3.5-5.0) g/dL Pituitary panel 09/08/22 Range/Units 16:14 Sodium 141 (137-145) mmol/L Potassium 4.4 (3.5-5.1) mmol/L Chloride 106 (98-107) mmol/L Carbon Dioxide 29 (22-30) mmol/L BUN 25 H (9-20) mg/dL Creatinine 1.30 H (0.66-1.25) mg/dL Glucose 143 H (74-99) mg/dL Calcium 9.1 (8.4-10.2) mg/dL Adrenal panel 09/08/22 Range/Units 16:14 Sodium 141 (137-145) mmol/L Potassium 4.4 (3.5-5.1) mmol/L Chloride 106 (98-107) mmol/L Carbon Dioxide 29 (22-30) mmol/L BUN 25 H (9-20) mg/dL Creatinine 1.30 H (0.66-1.25) mg/dL Glucose 143 H (74-99) mg/dL Calcium 9.1 (8.4-10.2) mg/dL Total Bilirubin 0.7 (0.2-1.3) mg/dL AST 19 (17-59) U/L ALT 18 (4-49) U/L Alkaline Phosphatase 84 (38-126) U/L Total Protein 6.4 (6.3-8.2) g/dL Albumin 4.0 (3.5-5.0) g/dL - Imaging Abdominal x-ray: report reviewed, image reviewed (No radiopaque stones seen on review of imaging) CT scan - abdomen: report reviewed, image reviewed (CT from August 15 on my review of imaging showed a 5 mm right-sided proximal stone with mild hydronephrosis) CT scan - pelvis: report reviewed Assessment and Plan Assessment: The patient complains of intermittent severe right flank pain that radiates to his right groin with associated nausea. He denies any fevers but reports being chilled yesterday. He denies any dysuria or hematuria. He is afebrile and vitals are stable. UA negative, WBC 13.4. Dr. Courtney discussed the option of surgical intervention to remove the stone. The patient is agreeable. (1) Right ureteral calculus Current Visit: Yes Status: Acute Code(s): N20.1 - CALCULUS OF URETER SNOMED Code(s): 26557623 Plan: - NPO - Toradol prn pain - Zofran prn nausea - Continue IV hydration - Right ureteroscopy with laser lithotripsy and possible stent insertion today. Discussed risk benefit and alternative. Risk which includes but not limited to bleeding, infection, injury to the ureter were discussed in detail Impression and plan of care have been directed as dictated by the signing physician. Lynda Clifton nurse practitioner acting as scribe for signing physician. Lynda Clifton [facility] Palliative Care/Urology [facility] [id number] Email: [email or web address] I personally performed and participated in the history, physical, the decision making, I agree with the assessment and plan of [employer]
[2022-09-09] MEDS ORDERED: IV FLUID CONTINUATION 1,000 ML IV ONE (12:41)
[2022-09-09] MEDS ORDERED: ONDANSETRON 4 MG/2 ML VIAL IVP ONE (12:47)
[2022-09-09] MEDS ORDERED: DEXAMETHASONE SOD PHOSPHATE 4 MG/ML 1 ML VIAL IVP ONE (12:47)
[2022-09-09] MEDS ORDERED: fentaNYL (PF) 50 MCG/ML 2 ML AMP ONE (13:18)
[2022-09-09] MEDS ORDERED: PHENYLEPHRINE-0.9% NACL SYG 1,000 MCG/10 ML SYRINGE ONE (13:18)
[2022-09-09] MEDS ORDERED: GLYCOPYRROLATE 0.2 MG/ML 2 ML VIAL ONE (13:18)
[2022-09-09] MEDS ORDERED: SUCCINYLCHOLINE CHLORIDE 200 MG/10 ML VIAL IV ONE (13:18)
[2022-09-09] MEDS ORDERED: LIDOCAINE 2% INJ 20 MG/ML (2 ML VIAL) ONE (13:18)
[2022-09-09] MEDS ORDERED: MIDAZOLAM 2 MG/2 ML VIAL ONE (13:18)
[2022-09-09] MEDS ORDERED: PROPOFOL 10 MG/ML 20 ML VIAL IV ONE (13:18)
[2022-09-09] MEDS ORDERED: SODIUM CHLORIDE 0.9% 100 ML with ceFAZolin 2,000 MG IV ONE ×2 (13:37)
[2022-09-09] MEDS ORDERED: IOPAMIDOL-370 50ML BTL MISCELLANE ONE (13:43)
--- NOTE | 2022-09-09 14:11 | P.OP ---
Date of Procedure: 09/09/22 Preoperative Diagnosis: Right ureteral stone Postoperative Diagnosis: Same Procedure(s) Performed: Cystoscopy, right ureteroscopy, holmium laser lithotripsy, stone basketing, and right ureteral balloon dilation Implants: None Anesthesia: ERENDIRAA Surgeon: Mal Courtney Estimated Blood Loss (ml): 1 Pathology: other Condition: stable Disposition: PACU Indications for Procedure: This is 67-year-old male with history of a 5 mm right-sided ureteral stone, he has been having intractable pain secondary to stone. Discussed the option of a right-sided ureteroscopy with holmium laser. Discussed the risk which was limited to bleeding, infection, injury to the ureter. He understood all the risk and agreed to proceed r Operative Findings: Right-sided distal ureteral stone Description of Procedure: Patient brought to the operating room, general anesthesia was induced. He was prepped and draped in sterile fashion and placed in dorsal lithotomy position. Cystoscopy fitted with a 21-Colombian sheath was inserted per urethra, cystoscopy was performed which showed no abnormality within the bladder. Of note patient's right ureteral orifice was narrowed. Patient had a partially obstructive prostate. This time the right ureteral orifice was intubated with a sensor wire. Next a 12-Colombian ureteral balloon dilator was passed over the wire, and the ureteral orifice was dilated under fluoroscopy. At this time the semirigid ureteroscope was inserted through the urethra and up the right ureteral orifice. A stone was encountered in the distal ureter. Using the holmium laser the stone was fragmented. Sizable fragments were removed using the stone basket and sent for analysis. At this time the ureteroscope was advanced all the way up to the UPJ which showed no stones. Pullback ureteroscopy was performed which showed no injury to ureter or any sizable fragments. There was minimal edema thus stent was not placed. The bladder was emptied at the end of the case. Patient tolerated the procedure well was taken to recovery in stable condition
--- NOTE | 2022-09-09 14:12 | P.DS ---
Providers Date of admission: 09/09/22 10:23 Attending physician: Mal Courtney MD Primary care physician: Elan Og - Discharge Diagnosis(es) (1) Right ureteral calculus Current Visit: Yes Status: Acute Hospital Course: This is a 67-year-old male presented to the hospital with intractable pain secondary to a 5 mm right ureteral stone. Patient was taken to the operating r oom on September 09 for right-sided ureteroscopy with holmium laser. Please see op note dated September 09 for surgery detail. Patient was discharged home following surgery. At time of discharge he was tolerating a diet, ambulating, and pain was controlled Plan - Discharge Summary Discharge Rx Participant: No New Discharge Prescriptions: New Ketorolac [Toradol] 10 mg PO Q6HR PRN #15 tab PRN Reason: Pain Cephalexin [Keflex] 500 mg PO Q12HR #10 cap No Action Ofloxacin 0.3% Ophth Soln [Ocuflox Ophth Soln] 1 drop RIGHT EYE TID predniSONE 10 mg PO DAILY Hydroxychloroquine Sulfate [Plaquenil] 400 mg PO DIRECTED Ibuprofen [Motrin] 800 mg PO Q6H PRN #30 tab PRN Reason: Pain prednisoLONE ACETATE 1% OPHTH [Pred Forte 1%] 1 drop RIGHT EYE TID mycophenolate mofetiL [Cellcept] 1,500 mg PO BID Ketorolac 0.5% Ophth Soln [Acular 0.5%] 1 drop RIGHT EYE TID Levothyroxine Sodium 200 mcg PO DAILY Omeprazole 20 mg PO DAILY Discharge Medication List Ibuprofen [Motrin] 800 mg PO Q6H PRN #30 tab 08/15/22 [Rx] Hydroxychloroquine Sulfate [Plaquenil] 400 mg PO DIRECTED 09/08/22 [History] Ketorolac 0.5% Ophth Soln [Acular 0.5%] 1 drop RIGHT EYE TID 09/08/22 [History] Levothyroxine Sodium 200 mcg PO DAILY 09/08/22 [History] Ofloxacin 0.3% Ophth Soln [Ocuflox Ophth Soln] 1 drop RIGHT EYE TID 09/08/22 [History] Omeprazole 20 mg PO DAILY 09/08/22 [History] mycophenolate mofetiL [Cellcept] 1,500 mg PO BID 09/08/22 [History] predniSONE 10 mg PO DAILY 09/08/22 [History] prednisoLONE ACETATE 1% OPHTH [Pred Forte 1%] 1 drop RIGHT EYE TID 09/08/22 [History] Cephalexin [Keflex] 500 mg PO Q12HR #10 cap 09/09/22 [Rx] Ketorolac [Toradol] 10 mg PO Q6HR PRN #15 tab 09/09/22 [Rx] Follow up Appointment(s)/Referral(s): Elan Og DO [Primary Care Provider] - 1-2 days Activity/Diet/Wound Care/Special Instructions: Increase fluid intake It is normal see blood in the urine
--- NOTE | 2022-09-09 14:13 | FL ---
Intraoperative/procedural fluoroscopic services were provided. Total fluoroscopy time is 4 seconds wi th a total of 1 submitted images to PACS. Please see the operative/procedural note for further detail s.
[2022-09-09 15:43] VITALS: RESP 20; TEMP 97.9
[2022-09-09 16:46] VITALS: BP 138/77; PULSE 62
== END 2022-09-09 17:25 | disposition home or self-care (01) | DRG 661 ==
LOC: EC 15:40 → 6NMEDSUR 09-09 00:25 → OBSVTOIN 09-09 10:23
PROVIDERS: ADMIT Urology; ATTEND Urology
PROC: 0T768ZZ Dilation of Right Ureter, Via Natural or Artificial Opening Endoscopic (ICD-10-PCS; 2022-09-09)
PROC: 0T9B30Z Drainage of Bladder with Drainage Device, Percutaneous Approach (ICD-10-PCS; 2022-09-09)
PROC: 0TC68ZZ Extirpation of Matter from Right Ureter, Via Natural or Artificial Opening Endoscopic (ICD-10-PCS; principal; 2022-09-09 08:25)
DX: N13.2 Hydronephrosis with renal and ureteral calculous obstruction (principal); R11.0 Nausea; D89.89 Other specified disorders involving the immune mechanism, not elsewhere classified; Z91.041 Radiographic dye allergy status; Z79.890 Hormone replacement therapy; Z79.624 Long term (current) use of inhibitors of nucleotide synthesis; Z87.442 Personal history of urinary calculi
CPT/HCPCS: 36415; 74018; 80053; 81001; 82365; 85025; 96361; 96374; 96375; 99285

== ENCOUNTER → 2022-10-08 | Outpatient (CLI) | payer MEDICARE ==
--- NOTE | 2022-10-08 11:38 | XR ---
EXAMINATION TYPE: XR abdomen 1V DATE OF EXAM: 10/08/2022 COMPARISON: NONE HISTORY: Pain TECHNIQUE: Single supine KUB image of the abdomen is obtained FINDINGS: Small bowel demonstrates no evidence for dilatation or air fluid levels. Gas and fecal material is seen in non-distended colon. No convincing evidence for pneumoperitoneum. No unusual calcifications. The lung bases are clear. The osseous structures are intact. IMPRESSION: 1. Overall nonobstructive bowel gas pattern.
== END | disposition home or self-care (01) ==
LOC: RADXRYALE 11:19
PROVIDERS: ATTEND Physician Assistant
DX: R10.84 Generalized abdominal pain (principal)
CPT/HCPCS: 74018

== ENCOUNTER 2022-10-10 23:01 | Emergency (ER) | payer MEDICARE ==
[2022-10-10 23:10] VITALS: BP 125/89; RESP 16; TEMP 97.6
[2022-10-10] MEDS ORDERED: SODIUM CHLORIDE 0.9% 500 ML 500 ML IV STA (23:55)
[2022-10-10] MEDS ORDERED: HYDROmorphone 0.5 MG/0.5 ML SYRINGE IVP STA (23:56)
[2022-10-11] MEDS ORDERED: methylPREDNISolone SOD SUCCI 125 MG/2 ML VIAL IV STA
[2022-10-11] MEDS ORDERED: diphenhydrAMINE 50 MG/ML 1 ML VIAL IVP STA
--- NOTE | 2022-10-11 | ED ---
Abdominal Pain HPI - General Chief Complaint: Abdominal Pain Stated Complaint: Abd Pain Time Seen by Provider: 10/10/22 23:47 Source: patient, RN notes reviewed, old records reviewed Mode of arrival: ambulatory Limitations: no limitations - History of Present Illness Initial Comments: 67-year-old male presents to emergency room with abdominal pain for 6 days. Has not had a bowel movement in 4 days. Did see his primary care doctor and had x- ray done 2 days ago no evidence of kidney stones or obstruction. He states he is nauseated but no vomiting or fevers. States he feels a fullness like his bloated MD Complaint: abdominal pain -: days(s) (6) Location: diffuse Severity scale (1-10): 9 Quality: fullness, other (bloating) Consistency: constant Improves With: nothing Associated Symptoms: nausea, constipation (no bm in 4 days) Treatments Prior to Arrival: other (xr by PCP) - Related Data Home Medications Medication Instructions Recorded Confirmed Hydroxychloroquine Sulfate 400 mg PO DIRECTED 09/08/22 09/08/22 [Plaquenil] Ketorolac 0.5% Ophth Soln [Acular 1 drop RIGHT EYE TID 09/08/22 09/08/22 0.5%] Levothyroxine Sodium 200 mcg PO DAILY 09/08/22 09/08/22 Ofloxacin 0.3% Ophth Soln [Ocuflox 1 drop RIGHT EYE TID 09/08/22 09/08/22 Ophth Soln] Omeprazole 20 mg PO DAILY 09/08/22 09/08/22 mycophenolate mofetiL [Cellcept] 1,500 mg PO BID 09/08/22 09/08/22 predniSONE 10 mg PO DAILY 09/08/22 09/08/22 prednisoLONE ACETATE 1% OPHTH 1 drop RIGHT EYE TID 09/08/22 09/08/22 [Pred Forte 1%] Previous Rx's Medication Instructions Recorded Ibuprofen [Motrin] 800 mg PO Q6H PRN #30 tab 08/15/22 Cephalexin [Keflex] 500 mg PO Q12HR #10 cap 09/09/22 Ketorolac [Toradol] 10 mg PO Q6HR PRN #15 tab 09/09/22 Acyclovir [Zovirax] 800 mg PO Q5H 7 Days #30 tab 10/11/22 Allergies Allergy/AdvReac Type Severity Reaction Status Date / Time Iodinated Contrast Media Allergy Rash/Hives Verified 10/10/22 23:10 Review of Systems ROS Statement: Those systems with pertinent positive or pertinent negative responses have been documented in the HPI. ROS Other: All systems not noted in ROS Statement are negative. Past Medical History Past Medical History: Renal Disease Additional Past Medical History / Comment(s): auto immune disease, kidney stone History of Any Multi-Drug Resistant Organisms: None Reported Past Surgical History: Tonsillectomy Past Anesthesia/Blood Transfusion Reactions: No Reported Reaction Past Psychological History: No Psychological Hx Reported Smoking Status: Never smoker Past Alcohol Use History: Occasional Past Drug Use History: None Reported General Exam Limitations: no limitations General appearance: alert, in no apparent distress Head exam: Present: atraumatic, normocephalic, normal inspection Eye exam: Absent: scleral icterus, conjunctival injection Respiratory exam: Absent: respiratory distress, accessory muscle use Cardiovascular Exam: Present: regular rate GI/Abdominal exam: Present: soft, distended, tenderness. Absent: guarding, rebound, rigid Extremities exam: Present: normal capillary refill. Absent: pedal edema Back exam: Present: rash noted (Vesicular rash right mid thoracic) Neurological exam: Present: alert, oriented X3 Psychiatric exam: Present: normal affect, normal mood Skin exam: Present: warm, dry, normal color. Absent: cyanosis, diaphoretic, petechiae, pallor Course Vital Signs 10/10/22 10/11/22 23:05 02:23 Temperature 97.6 F Pulse Rate 87 77 Respiratory 16 16 Rate Blood Pressure 125/89 O2 Sat by Pulse 99 99 Oximetry Medical Decision Making - Medical Decision Making History of renal disease, autoimmune disease, kidney stone X-ray performed for abdominal pain on October 08 ordered by PCP showing overall nonobstructive bowel gas pattern. No evidence of small bowel dilatation or air fluid levels. Gas and fecal matter seen in a nondistended colon Vital signs are stable patient is afebrile. He was given Dilaudid for pain. Premedicated with Benadryl and Solu-Medrol for CAT scan to rule out obstruction. Also given IV fluids. Patient was found to have a vesicular rash right mid thoracic back. Denies any pain or discomfort. He was prescribed antivirals. CT the abdomen and pelvis shows gallbladder is mildly dilated and measures 5.3 cm in diameter. No evidence of pancreatic mass. There is a 5 mm calculus lower pole left kidney. Right-sided fat containing inguinal hernia. No pelvic mass. Appendix is posterior appears normal. No mesenteric edema, ascites or free air. No sign of a bowel obstruction. Impression nonobstructive left renal calculus which appears increased compared to old exam dated 08/15/2022. Some interstitial infiltrates and atelectasis at t he lung bases which is improved. Labs show no evidence of leukocytosis. Electrolytes are unremarkable. Lactic acid negative at 1.9 Fleets enema given He'll be discharged home to follow up with his primary care doctor. Case discussed with Dr. Sevilla. Was pt. sent in by a medical professional or institution? @ -no Did you speak to anyone other than the patient for history? @ -no Did you review nursing and triage notes? @ -yes i agree Were old charts reviewed? @ -yes recent XR 10/08/22 Differential Diagnosis? @ -Differential Abdominal Pain Men: Appendicitis, cholecystitis, diverticulosis, ischemic bowel, pancreatitis, hepatitis, UTI, gastroenteritis, AAA, incarcerated hernia, bowel obstruction, constipation, inflammatory bowel, hepatitis, peptic ulcer disease, splenic infarction, perforated viscus, testicular torsion, this is not meant to be an all-inclusive list EKG interpreted by me (3pts min.)? @ -[none] X-rays interpreted by me (1pt min.)? @ -[none] CT interpreted by me (1pt min.)? @ -no U/S interpreted by me (1pt. min.)? @ -[none] What testing was considered but not performed? (CT, X-rays, U/S, labs)? Why? @ none What meds were considered but not given? Why? @ -Antibiotics considered if evidence of diverticulitis which was negative Did you discuss the management of the patient with other professionals? @ -no Did you reconcile home meds? @ -no Was smoking cessation discussed for >3mins.? @ -no Was critical care preformed (if so, how long)? @ -no Were there social determinants of health that impacted care today? How? (Homelessness, low income, unemployed, alcoholism, drug addiction, transportation, low edu. Level, literacy, decrease access to med. care, [facility], rehab)? @ -none Was there de-escalation of care discussed even if they declined? (Discuss DNR or withdrawal of care, Hospice)? @ -no What co-morbidities impacted this encounter? (DM, HTN, Smoking, COPD, CAD, Cancer, CVA, Hep., AIDS, mental health diagnosis, sleep apnea, morbid obesity)? @ -Renal disease, autoimmune disease Was patient admitted / discharged? @ -discharged Undiagnosed new problem with uncertain prognosis? @ -[none] Drug Therapy requiring intensive monitoring for toxicity (Heparin, Nitro, Insulin, Cardizem)? @ -no Were any procedures done? @ -no Diagnosis/symptom? @ -Abdominal pain, constipation, shingles Acute, or Chronic, or Acute on Chronic? @ -Acute Uncomplicated (without systemic symptoms) or Complicated (systemic symptoms)? @ -Uncomplicated Side effects of treatment? @ -[none] Exacerbation, Progression, or Severe Exacerbation] @ -[no] Poses a threat to life or bodily function? @ -[no] - Lab Data Result diagrams: 10/11/22 00:04 10/11/22 00:04 Lab Results 10/11/22 10/11/22 10/11/22 Range/Units 00:04 00:04 00:04 WBC 9.4 (3.8-10.6) k/uL RBC 5.62 (4.30-5.90) m/uL Hgb 16.2 (13.0-17.5) gm/dL Hct 49.8 (39.0-53.0) % MCV 88.5 D (80.0-100.0) fL MCH 28.9 (25.0-35.0) pg MCHC 32.6 (31.0-37.0) g/dL RDW 13.5 (11.5-15.5) % Plt Count 270 (150-450) k/uL MPV 7.2 Neutrophils % 77 % Lymphocytes % 14 % Monocytes % 6 % Eosinophils % 1 % Basophils % 1 % Neutrophils # 7.2 (1.3-7.7) k/uL Lymphocytes # 1.3 (1.0-4.8) k/uL Monocytes # 0.6 (0-1.0) k/uL Eosinophils # 0.1 (0-0.7) k/uL Basophils # 0.1 (0-0.2) k/uL Sodium 136 L (137-145) mmol/L Potassium 4.7 (3.5-5.1) mmol/L Chloride 103 (98-107) mmol/L Carbon Dioxide 26 (22-30) mmol/L Anion Gap 7 mmol/L BUN 18 (9-20) mg/dL Creatinine 1.04 (0.66-1.25) mg/dL Est GFR (CKD-EPI)AfAm 85 (>60 ml/min/1.73 sqM) Est GFR (CKD-EPI)NonAf 73 (>60 ml/min/1.73 sqM) Glucose 145 H (74-99) mg/dL Plasma Lactic Acid Travis 1.9 (0.7-2.0) mmol/L Calcium 9.4 (8.4-10.2) mg/dL Total Bilirubin 1.1 (0.2-1.3) mg/dL AST 28 (17-59) U/L ALT 20 (4-49) U/L Alkaline Phosphatase 59 (38-126) U/L Total Protein 7.3 (6.3-8.2) g/dL Albumin 4.5 (3.5-5.0) g/dL Amylase 73 (30-110) U/L Lipase 133 (23-300) U/L Disposition Clinical Impression: Shingles rash, Abdominal pain Disposition: HOME SELF-CARE Condition: Good Instructions (If sedation given, give patient instructions): Shingles (ED), Abdominal Pain (ED) Additional Instructions: Keep rash on your back covered. Take acyclovir once a day for the next 5 days. Follow-up with your primary care doctor on Wednesday. Return to the emergency room with any new or concerning symptoms including increased pain, persistent nausea vomiting or fevers. Prescriptions: Acyclovir [Zovirax] 800 mg PO Q5H 7 Days #30 tab Is patient prescribed a controlled substance at d/c from ED?: No Referrals: Elan Og DO [Primary Care Provider] - 1-2 days Time of Disposition: 02:05
[2022-10-11 00:15] LABS: Basophils # (A) 0.1 k/uL (0-0.2); Basophils % (A) 1 %; Eosinophils # (A) 0.1 k/uL (0-0.7); Eosinophils % (A) 1 %; HCT 49.8 % (39.0-53.0); HGB 16.2 gm/dL (13.0-17.5); Lymphocytes # (A) 1.3 k/uL (1.0-4.8); Lymphocytes % (A) 14 %; MCH 28.9 pg (25.0-35.0); MCHC 32.6 g/dL (31.0-37.0); Mean Platelet Volume 7.2; Monocytes # (A) 0.6 k/uL (0-1.0); Monocytes % (A) 6 %; Neutrophils # (A) 7.2 k/uL (1.3-7.7); Neutrophils % (A) 77 %; Platelet Count 270 k/uL (150-450); RBC 5.62 m/uL (4.30-5.90); RDW 13.5 % (11.5-15.5); WBC 9.4 k/uL (3.8-10.6)
[2022-10-11 00:29] LABS: Calcium 9.4 mg/dL (8.4-10.2); Total Bilirubin 1.1 mg/dL (0.2-1.3)
[2022-10-11 00:31] LABS: MCV 88.5 fL (80.0-100.0)
[2022-10-11 00:51] LABS: Albumin 4.5 g/dL (3.5-5.0); Total Protein 7.3 g/dL (6.3-8.2)
[2022-10-11 00:52] LABS: Potassium 4.7 mmol/L (3.5-5.1)
--- NOTE | 2022-10-11 01:32 | CT ---
EXAMINATION TYPE: CT abdomen pelvis w con DATE OF EXAM: 10/11/2022 COMPARISON: 08/15/2022 HISTORY: Abdominal pain CT DLP: 1780.6 mGycm Automated exposure control for dose reduction was used. CONTRAST: Performed with IV Contrast, patient injected with 100ml mL of Isovue 300. Images obtained from the diaphragm to the floor the pelvis with the IV contrast. There is some interstitial infiltrate and atelectasis at the lung bases. No pleural effusion. Heart i s top normal in size. No pericardial effusion. There is small hiatal hernia. Stomach is intact. Liver and spleen are intact. Gallbladder is mildly d ilated and measures 5.3 cm in diameter. No evidence of pancreatic mass. There is no adrenal mass. Kidneys show satisfactory contrast opacification. No hydronephrosis. The ur eters are not dilated. There is 5 mm calculus lower pole left kidney. Delayed images show normal lucila l excretion. Ureters show no sign of inflammation. There is no retroperitoneal adenopathy. Bladder di stends smoothly. There is right-sided fat containing inguinal hernia. There is some prostatic calcifi cation. No pelvic mass. Appendix is posterior and appears normal There is no mesenteric edema. No ascites or free air. No sign of a bowel obstruction. The lumbar vertebrae have normal alignment. There is spurring of the endplates at L4-5. There is T12 wedging 15% with depression of the superior endplate. IMPRESSION: Nonobstructing left renal calculus. Calculus appears increased compared to old exam. There is clearin g of the obstructing calculus in the right ureter compared to old exam. There are some interstitial infiltrates and atelectasis at the lung bases which is improved. .
[2022-10-11] MEDS ORDERED: NA PHOS,M-B/NA PHOS,DI-BA 133 ML ENEMA RECTAL STA (02:00)
[2022-10-11 02:24] VITALS: PULSE 77
== END 2022-10-11 03:01 | disposition home or self-care (01) ==
LOC: EC 23:01
DX: B02.9 Zoster without complications (principal); R10.9 Unspecified abdominal pain; Z91.041 Radiographic dye allergy status
CPT/HCPCS: 36415; 80053; 82150; 83605; 83690; 85025; 74177; 99285; 96374; 96375 ×2; J1200; J2930; J1170; Q9967

== ENCOUNTER → 2024-06-14 | Outpatient (CLI) | payer MEDICARE ==
--- NOTE | 2024-06-14 14:41 | XR ---
EXAMINATION TYPE: XR KUB DATE OF EXAM: 06/14/2024 COMPARISON: CT abdomen and pelvis 10/11/2022, abdominal radiograph 10/08/2022, KUB 09/08/2022 HISTORY: Calculus of left ureter TECHNIQUE: Single supine KUB image of the abdomen is obtained FINDINGS: Small bowel demonstrates no evidence for dilatation or air fluid levels. Gas and fecal material is seen in non-distended colon. No convincing evidence for pneumoperitoneum. Right-sided pelvic phlebolith. No other suspicious calcifications. No definitive renal or ureteral ca lculi. The lung bases are clear. The osseous structures are intact. IMPRESSION: 1. Overall nonobstructive bowel gas pattern. 2. No definitive renal or ureteral calculi. [facility], , 06/14/2024 2:39 PM
== END | disposition home or self-care (01) ==
LOC: RADXRMAIN 13:56
PROVIDERS: ATTEND Urology
DX: N20.1 Calculus of ureter (principal)
CPT/HCPCS: 74018

== ENCOUNTER 2024-06-20 13:25 | Inpatient (IN) | payer MEDICARE ==
[2024-06-20] MEDS: SODIUM CHLORIDE 0.9% 1,000 ML IV ONE ×2 (13:26→13:42)
[2024-06-20] MEDS: ATROPINE SULFATE 0.1 MG/ML 10ML SYRINGE IV STA (13:28)
[2024-06-20] MEDS: HEPARIN SODIUM 1,000 UN/ML (10ML VL) MISCELLANE ONE (13:28)
[2024-06-20] MEDS: ATORVASTATIN 80 MG TAB PO STA (13:30)
[2024-06-20] MEDS ORDERED: NALOXONE 0.4 MG/ML 1 ML VIAL IV PRN (13:31)
[2024-06-20] MEDS: methylPREDNISolone SOD SUCCI 125 MG/2 ML VIAL IV STA (13:32)
[2024-06-20] MEDS: FAMOTIDINE 20 MG/2 ML VIAL IV STA (13:32)
[2024-06-20] MEDS: diphenhydrAMINE 50 MG/ML 1 ML VIAL IVP STA (13:32)
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
[2024-06-20] MEDS: ONDANSETRON 4 MG/2 ML VIAL IVP STA (13:38)
[2024-06-20 13:44] LABS: Basophils % (A) 0 %; Eosinophils # (A) 0.2 k/uL (0-0.7); Eosinophils % (A) 1 %; HCT 45.2 % (39.0-53.0); HGB 15.2 gm/dL (13.0-17.5); Lymphocytes # (A) 4.6 k/uL (1.0-4.8); Lymphocytes % (A) 38 %; MCH 30.9 pg (25.0-35.0); MCHC 33.7 g/dL (31.0-37.0); MCV 91.7 fL (80.0-100.0); Mean Platelet Volume 7.8; Monocytes # (A) 0.6 k/uL (0-1.0); Monocytes % (A) 5 %; Neutrophils # (A) 6.5 k/uL (1.3-7.7); Neutrophils % (A) 54 %; Platelet Count 410 k/uL (150-450); RBC 4.93 m/uL (4.30-5.90); RDW 13.9 % (11.5-15.5); WBC 12.1 k/uL (3.8-10.6)
[2024-06-20] MEDS: SODIUM CHLORIDE 0.9% 500 ML 500 ML IV ONE (13:45)
--- NOTE | 2024-06-20 13:46 | XR ---
EXAMINATION TYPE: XR chest 1V portable DATE OF EXAM: 06/20/2024 1:40 PM COMPARISON: None TECHNIQUE: XR chest 1V portable Portable AP radiograph of the chest. CLINICAL INDICATION:Male, 68 years old with history of chest pain; FINDINGS: Lungs/Pleura: There is no evidence of pleural effusion, focal consolidation, or pneumothorax. Pulmonary vascularity: Unremarkable. Heart/mediastinum: Cardiomediastinal silhouette is enlarged. Musculoskeletal: No acute osseous pathology. IMPRESSION: Cardiomegaly without radiographic evidence of an acute process. [facility], , 06/20/2024 1:44 PM
[2024-06-20] MEDS: PHENYLEPHRINE-0.9% NACL SYG 1,000 MCG/10 ML SYRINGE IVP ONE (13:49)
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
[2024-06-20] MEDS: LIDOCAINE 1% INJ 10MG/ML (20 ML MDV) SQ ONE (13:53)
[2024-06-20 13:58] LABS: Partial Thromboplastin Time 22.2 sec (22.0-30.0); Prothrombin Time 10.6 sec (10.0-12.5)
[2024-06-20 14:02] LABS: ALT 18 U/L (4-49); AST 30 U/L (17-59); African American GFR (CKD) 74 (>60 ml/min/1.73 sqM); Albumin 3.9 g/dL (3.5-5.0); Alkaline Phosphatase 67 U/L (38-126); Anion Gap 8 mmol/L; Blood Urea Nitrogen 19 mg/dL (9-20); Calcium 9.8 mg/dL (8.4-10.2); Carbon Dioxide 20 mmol/L (22-30); Chloride 109 mmol/L (98-107); Glucose 133 mg/dL (74-99); Non-African American GFR(CKD) 64 (>60 ml/min/1.73 sqM); Potassium 4.3 mmol/L (3.5-5.1); Sodium 137 mmol/L (137-145); Total Bilirubin 0.9 mg/dL (0.2-1.3); Total Protein 6.3 g/dL (6.3-8.2)
[2024-06-20] MEDS: fentaNYL (PF) 50 MCG/ML 2 ML AMP IVP ONE (14:04)
[2024-06-20] MEDS ORDERED: RX INFO: IV CONTRAST WAS GIVEN 1 EACH MISC MISCELLANE PRN (14:37)
[2024-06-20] MEDS: IOPAMIDOL-370 100ML BTL INJ ONE (14:45)
[2024-06-20] MEDS: SODIUM CHLORIDE 0.9% 1,000 ML IV SCH ×2 (15:00→16:31)
--- NOTE | 2024-06-20 15:01 | P.CARDCATH ---
Date of Procedure: 06/20/24 Description of Procedure: DIAGNOSTIC CORONARY ANGIOGRAPHY and LEFT HEART CATH REPORT PROCEDURES PERFORMED: Left heart catheterization Selective coronary angiogram Moderate conscious sedation 37 mins Right common femoral access Right common femoral arteriogram IABP placement Transvenous pacemaker placement INDICATION: Inferior STEMI CONSENT: I have discussed the risks, benefits and alternative therapies for the above-mentioned procedure, sedation/analgesia and necessary blood product administration (if indicated, as they pertain to this patient). The patient has indicated understanding and acceptance of the risks and procedures discussed. Conscious Sedation: Patient's ECG, heart rate, blood pressure, pulse oximetry was monitored throughout the duration of procedure under the direct supervision. 50 mg Fentanyl were used for induction of moderate conscious sedation. Total duration of 37 minutes. PROCEDURE:After the risks, benefits and alternatives of the above mentioned procedure explained in detail with the patient, informed consent was obtained. Patient was taken to the catheterization lab and prepped and draped in usual sterile fashion. Ultrasound was used to identify the right common femoral artery. 1% lidocaine was infiltrated over the right common femoral artery and femoral vein. Using ultrasound arterial access was obtained using micropuncture needle. A 6-New Zealander sheath was placed in the right coomon femoral artery using modified Seldinger technique. Using ultrasound, right common femoral vein access was obtained using modified Selinger technique. 6 New Zealander slender sheath was advanced in the femoral vein and flushed. Transvenous pacemaker catheter was advanced through the venous sheath under fluoroscopy guidance to reach the right ventricule. Right atrial pacing was started in VVI mode and once appropriate capturing was confirmed the transvenous pacemaker was secured in the venous sheath. J tipped wire was advanced under fluoroscopic guidance. Over the wire JL4 diagnostic catheter was advanced. Wire was removed, catheter was flushed and manipulated under fluoroscopy to selectively engaged the left coronary ostium. Left coronary angioplasty was performed in different angiographic projections. This catheter was exchanged for a JR4 diagnostic catheter over the wire. The catheter was flushed and manipulated to cross the aortic valve. LV pressures were obtained. Pullback was performed across aortic valve and catheter was manipulated to selectively engage the right coronary ostium under fluoroscopic guidance. Right coronary angiography was performed in different angiographic projections. Catheter was removed over the wire. Femoral sheath was flushed. After reviewing the coronary angiogram and discussing it with the nurse researcher on-call Dr. Lin, we decided that that patient would be best served by coronary bypass. Decision was made to place the intra-aortic balloon pump to augment coronary perfusion. 6 New Zealander sheath was exchanged for a 7 New Zealander IABP sheath. IABP was advanced and the positioning was confirmed. Left radial pulse was palpated and confirmed that there is no subclavian obstruction. After completion of the procedure, patient had an episode of ventricular fibrillation and was immediately defibrillated related twice with resolution of normal sinus rhythm. HEMODYNAMICS: Aortic Pressure: 100/60 mmHg. LV pressure: 106/5 mmHg. LVEDP 17 mmHg. SELECTIVE CORONARY ARTERIOGRAPHY: LEFT MAIN: The left main is a large caliber vessel which bifurcates into the LAD and circumflex. Distal LAD has 90% stenosis involving the bifurcation and extension of stenosis in LAD. LEFT ANTERIOR DESCENDING CORONARY ARTERY: LAD is a large caliber vessel which reaches up to the apex. LAD gives rise to a high diagonal 1 branch. It is moderate caliber. It has moderate diffuse disease in proximal segment. Just after giving diagonal 1, proximal LAD has 80 to 90% disease. Mid LAD is patent. Mid LAD gives rise to a second diagonal branch which is large caliber and has mild to moderate diffuse disease in proximal segment. It is otherwise patent. Distal LAD is patent. LAD and diagonal otherwise has TIMA-3 flow. LEFT CIRCUMFLEX CORONARY ARTERY: It is nondominant vessel. Left circumflex is a moderate caliber vessel. Proximal LCx has mild luminal irregularities. It gives rise to a OM branch which is patent. RIGHT CORONARY ARTERY: Dominant vessel. Large-caliber vessel. 90% stenosis proximal RCA. Mid and distal RCA has mild to moderate irregularities. It gives rise to large PDA and PL branches which has mild irregularities. RCA has TIMA-3 flow. IMPRESSION: 90% distal left main stenosis, TIMA-3 flow 80 to 90% proximal LAD stenosis. 90% proximal RCA stenosis, TIMA-3 flow Complete heart block Elevated LVEDP Ventricular fibrillation status post defibrillation x 2. Downtime less than 10 seconds. PLAN: 75 cc/h of normal saline for 6 hours IABP management and transvenous pacemaker management. VVI mode, pacing rate 70 bpm, pacing threshold 10 mA IV heparin drip Start lidocaine drip to prevent any further ventricular fibrillation. CT surgery consult. Case discussed with Kristy Gottlieb Performing Physician Nicolas Seaman MD FAC, RPVI Thank you for allowing [facility] to participate in this patient's care. Feel free to reach out in case of any followup questions.
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
[2024-06-20] MEDS: NOREPINEPHRINE 4 MG in SODIUM CHLORIDE 0.9% 250 ML IV SCH (15:30)
[2024-06-20] MEDS: HEPARIN SOD,PORK IN 0.45% NACL 25,000 UNIT in 0.45% NACL 1 250ML.BAG IV SCH (15:30)
[2024-06-20] MEDS: HEPARIN SODIUM 1,000 UN/ML (10ML VL) IV ONE (15:48)
[2024-06-20 15:50] LABS: NT-Pro-B-Type Natriuretic Pept 178 pg/mL
[2024-06-20 15:54] LABS: Glucose,Whole Blood 153 mg/dL (70-110)
--- NOTE | 2024-06-20 16:08 | XR ---
EXAMINATION TYPE: XR chest 1V portable DATE OF EXAM: 06/20/2024 COMPARISON: 06/20/2024 INDICATION: Central line placement TECHNIQUE: Single frontal view of the chest is obtained. FINDINGS: The heart size is prominent. The pulmonary vasculature is prominent. Diffuse scattered increased lung markings are present. Findings are nonspecific. Consider pulmonary e chencho and congestive heart failure. Atypical pneumonia should be considered. Left central venous catheter is in place with tip in the superior vena cava region. No pneumothorax i s evident. IMPRESSION: 1. Scattered increased lung markings likely on the basis of congestive heart failure. Consider atypic al pneumonia 2. Left central venous catheter placed with tip in the superior vena cava region. [facility], Workstation: [facility], 06/20/2024 4:06 PM
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
[2024-06-20] MEDS: LIDOCAINE-D5W PMX 2G/250ML 2,000 MG in DEXTROSE/WATER 1 250ML.BAG IV SCH (16:29)
[2024-06-20 16:42] LABS: ALT 20 U/L (4-49); AST 33 U/L (17-59); African American GFR (CKD) 86 (>60 ml/min/1.73 sqM); Albumin 3.6 g/dL (3.5-5.0); Alkaline Phosphatase 76 U/L (38-126); Anion Gap 8 mmol/L; Blood Urea Nitrogen 19 mg/dL (9-20); Calcium 9.1 mg/dL (8.4-10.2); Carbon Dioxide 20 mmol/L (22-30); Chloride 108 mmol/L (98-107); Glucose 157 mg/dL (74-99); Non-African American GFR(CKD) 74 (>60 ml/min/1.73 sqM); Potassium 4.5 mmol/L (3.5-5.1); Sodium 136 mmol/L (137-145); Total Bilirubin 0.6 mg/dL (0.2-1.3); Total Protein 6.1 g/dL (6.3-8.2)
[2024-06-20 17:00] LABS: Partial Thromboplastin Time 24.9 sec (22.0-30.0); Prothrombin Time 10.8 sec (10.0-12.5)
[2024-06-20 17:05] LABS: T4, Free (Free Thyroxine) 1.32 ng/dL (0.78-2.19)
--- NOTE | 2024-06-20 18:07 | CA ---
Transthoracic Echo Report Name: Justin Guerra Age: 68 Gender: M : 1955 Exam Date: 06/20/2024 16:05 Exam Location: [facility] Ht (in): 68 Wt (lb): 253 Ordering Physician: Nicolas Seaman MD ([id number]) Attending/Referring Phys: Qualified Craft Worker Electrician Qi Sams RDCS Procedure CPT: Indications: stemi Cardiac Hx: Technical Quality: Fair Contrast 1: Total Dose (mL): Contrast 2: Total Dose (mL): MEASUREMENTS (Male / Female) Normal Values 2D ECHO LV Diastolic Diameter PLAX 4.3 cm 4.2 - 5.9 / 3.9 - 5.3 cm LV Systolic Diameter PLAX 3.1 cm IVS Diastolic Thickness 1.2 cm 0.6 - 1.0 / 0.6 - 0.9 cm LVPW Diastolic Thickness 1.2 cm 0.6 - 1.0 / 0.6 - 0.9 cm LV Relative Wall Thickness 0.6 LVOT Diameter 2.6 cm LV Diastolic Volume MOD BP 81.4 cm??? 67 - 155 / 56 - 104 cm??? LV Systolic Volume MOD BP 35.7 cm??? 22 - 58 / 19 - 49 cm??? LV Ejection Fraction MOD BP 56.1 % >= 55 % LV Cardiac Index MOD BP 1526.2 cm???/min???m??? LV Diastolic Volume MOD 4C 79.2 cm??? LV Systolic Volume MOD 4C 35.3 cm??? LV Ejection Fraction MOD 4C 55.5 % LV Cardiac Index MOD 4C 1465.9 cm???/min???m??? LV Diastolic Length 4C 7.7 cm LV Systolic Length 4C 6.8 cm LV Diastolic Volume MOD 2C 81.0 cm??? LV Systolic Volume MOD 2C 34.1 cm??? LV Ejection Fraction MOD 2C 57.9 % LV Cardiac Index MOD 2C 1566.0 cm???/min???m??? LV Diastolic Length 2C 7.9 cm LV Systolic Length 2C 6.4 cm LA Volume 79.6 cm??? 18 - 58 / 22 - 52 cm??? LA Volume Index 33.2 cm???/m??? 16 - 28 cm???/m??? Ascending Aorta Diameter 3.7 cm DOPPLER AV Peak Velocity 116.8 cm/s AV Peak Gradient 5.5 mmHg AV Mean Velocity 76.7 cm/s AV Mean Gradient 2.7 mmHg AV Velocity Time Integral 20.0 cm LVOT Peak Velocity 100.7 cm/s LVOT Peak Gradient 4.1 mmHg LVOT Velocity Time Integral 16.3 cm LVOT Stroke Volume 84.9 cm??? LVOT Stroke Volume Index 37.6 ml/m??? LVOT Cardiac Index 2834.2 cm???/min???m??? AV Area Cont Eq vti 4.2 cm??? AV Area Cont Eq pk 4.5 cm??? TR Peak Velocity 195.8 cm/s TR Peak Gradient 15.3 mmHg Right Atrial Pressure 15.0 mmHg Pulmonary Artery Systolic Pressu 30.3 mmHg Right Ventricular Systolic Press 30.3 mmHg PV Peak Velocity 63.9 cm/s PV Peak Gradient 1.6 mmHg FINDINGS Left Ventricle Left ventricular ejection fraction is estimated at 55 to 60 %. Left ventricular cavity size normal. No obvious regional wall motion abnormalities.Mildly increased left ventricular wall thickness. Right Ventricle Normal right ventricular size and function. Right ventricular systolic pressure within normal limits. Right Atrium Normal right atrial size. Mild intra-atrial septum Left Atrium Mildly increased left atrial volume. Mildly increased left atrial area. Mitral Valve Structurally normal mitral valve. No evidence for mitral valve prolapse. No mitral stenosis. Mild mitral regurgitation. Aortic Valve Trileaflet aortic valve. No aortic valve stenosis or regurgitation.aortic valve sclerosis. Tricuspid Valve Structurally normal tricuspid valve. No tricuspid stenosis. Mild tricuspid regurgitation. Pulmonic Valve Pulmonic valve not well visualized. No pulmonic stenosis. No pulmonic regurgitation. Pericardium No pericardial effusion. Aorta Mildly dilated aortic annulus. Normal ascending aorta. CONCLUSIONS 1. Normal left ventricular size and systolic function 2. Mild mitral and tricuspid regurgitation Previewed by: Dr. Gustabo Lin MD (Electronically Signed) Final Date: 20 June 2024 18:06
--- NOTE | 2024-06-20 18:13 | P.HPIM ---
History of Present Illness H&P Date: 06/20/24 History of present illness; Justin Guerra is a 68-year-old male with past medical history of derma tomyositis, and hypothyroidism who presented with substernal chest pain. He states he had some feelings of heartburn and indigestion last night. Today he had substernal chest pressure while driving, had a loss of consciousness and woke up on the ground. He also had associated diaphoresis and shortness of breath. He was seen in emergency room by Dr. Seaman and sent urgently to [facility]. During catheterization he did defibrillate and was shocked twice, and went to third-degree heart block and a transvenous pacemaker was placed. Heart catheterization noted distal left main disease 90% with TIMI3 flow, 80 to 90% proximal LAD as well as 90% RCA disease with TIMI3 flow. Intra-aortic balloon pump was placed and patient was transported to intensive care unit. Initial lab work done in the ER showed WBC 12.1, hemoglobin 15.2, platelets 410, coagulation studies WNL, sodium 137, potassium 4.3, chloride 108, glucose 133, troponin 0.021, proBNP 178, pending lipid panel, TSH 33.8, free T4 1.32. ECG shows complete heart block, heart rate 48 beats minute with A-V dissociation, ST elevations in inferior lead along with rest elevations in anteroseptal leads along with lateral obstruction. Bedside echocardiogram showed an EF of 50 to 55%, inferior wall hypokinesia, RV dilatation with high RV hypokinesia Chest x-ray done independently interpreted in the ER showed cardiomegaly without acute process Patient admitted to internal medicine service for treatment of CAD and STEMI. REVIEW OF SYSTEMS: All Systems reviewed, pertinent positives and negatives noted in HPI. All other symptoms are negative. The rest of the 14-point review of systems is negative. PHYSICAL EXAMINATION: Vitals reviewed GENERAL: The patient is alert and oriented x3, mild acute distress. Well developed, well nourished. HEENT: Pupils are round and equally reacting to light. EOMI. No scleral icterus. No conjunctival pallor. Normocephalic, atraumatic. No pharyngeal erythema. No thyromegaly. CARDIOVASCULAR: S1 and S2 present. Systolic murmur. 1:1 intra-aortic balloon pump present through right groin. PULMONARY: Chest is clear to auscultation, no wheezing or crackles. ABDOMEN: Soft, nontender, nondistended, normoactive bowel sounds. No palpable organomegaly. MUSCULOSKELETAL: No apparent joint swelling and deformities. EXTREMITIES: No apparent cyanosis, clubbing, or pedal edema. NEUROLOGICAL: Gross neurological examination did not reveal any focal deficits. SKIN: No apparent rashes. Labs reviewed Imaging reviewed Assessment and plan Justin Guerra is a 68-year-old male with past medical history of dermatomyositis, and hypothyroidism who being treated for CAD with inferior STEMI. # CAD with STEMI S/P intra-aortic balloon placement -echocardiogram showed an EF of 50 to 55 Continue aspirin 81 mg daily, Coreg 3.125 twice daily -Continue heparin infusion -Continue Lipator 40mg Continue Levophed Pending lipid panel S/p intra-aortic balloon placement Dr. Christina following Plan for CABG in estimated 3 days -Cardiology following # Subclinical hypothyroidism -TSH 33.8, free T4 1.32. -Begin Synthroid F: IV Normal saline 75cc/hr E: Replete as needed N: Heart healthy diet E: None DVT ppx: Heparin Code status: Full code Anticipated discharge place: Pending clinical course Anticipated discharge time: Pending clinical course Monitor vital signs, CBC, CMP Continue telemetry monitoring Continue with symptomatic treatment. Resume home medication. Further recommendations as per clinical course of the patient Dictation was produced using [employer] dictation software. Please excuse any grammatical, word or spelling errors. I saw and evaluated the patient during the kwan and critical portions of this encounter, and discussed the case in detail with the resident author of this note, I agree with the Assessment and Plan, and my changes, if any, are highlighted in blue. 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, kidney stone History of Any Multi-Drug Resistant Organisms: None Reported Past Surgical History: No Surgical Hx Reported, Tonsillectomy Past Anesthesia/Blood Transfusion Reactions: No Reported Reaction Past Psychological History: No Psychological Hx Reported Smoking Status: Never smoker Past Alcohol Use History: Occasional Past Drug Use History: None Reported - Past Family History Mother Family Medical History: Cancer Additional Family Medical History / Comment(s): from cancer Father Additional Family Medical History / Comment(s): from old age Medications and Allergies Home Medications Medication Instructions Recorded Confirmed Type Levothyroxine Sodium 200 mcg PO DAILY 09/08/22 06/20/24 History mycophenolate mofetiL [Cellcept] 1,000 mg PO DAILY 09/08/22 06/20/24 History Gabapentin 800 mg PO HS 06/20/24 06/20/24 History mycophenolate mofetiL [Cellcept] 1,500 mg PO HS 06/20/24 06/20/24 History Allergies Allergy/AdvReac Type Severity Reaction Status Date / Time Iodinated Contrast Media Allergy Rash/Hives Verified 06/20/24 13:40 Physical Exam Osteopathic Statement: *. No significant issues noted on an osteopathic structural exam other than those noted in the History and Physical/Consult. Vitals: Vital Signs Temp Pulse Pulse Resp BP Pulse Ox 06/20/24 17:00 79 15 100 06/20/24 16:45 79 14 100 06/20/24 16:30 79 15 100 06/20/24 16:15 79 12 100 06/20/24 16:00 94.7 F L 79 11 L 100 06/20/24 15:45 79 16 100 06/20/24 15:30 79 20 100 06/20/24 15:15 94.3 F L 79 19 100 06/20/24 15:01 70 6 L 06/20/24 13:40 43 L 14 105/60 97 06/20/24 13:33 46 L 13 101/88 98 06/20/24 13:26 43 L 46 L 13 105/77 97 Intake and Output 06/20/24 06/20/24 06/20/24 06:59 14:59 22:59 Intake Total 500 206.65 Output Total 275 Balance 500 -68.35 Intake: IV 500 190 0.9 @ KVO 40 Sodium Chloride 0.9% 1, 150 000 ml @ 75 mls/hr IV . [id number] [facility] Rx#:[id number] Intake, IV Titration 16.65 Amount Norepinephrine 4 mg In 16.65 Sodium Chloride 0.9% 250 ml @ 0.03 MCG/KG/MIN 13. 145 mls/hr IV .[id number] [facility] Rx#:[id number] Output: Urine 275 Other: Voiding Method Indwelling Catheter Weight 115 kg ABP, PAP, CO, CI - Last 8 Hours Arterial Blood Pressure 93/54 Arterial Blood Pressure 98/56 Arterial Blood Pressure 113/68 Arterial Blood Pressure 111/71 Arterial Blood Pressure 103/63 Results CBC & Chem 7: 06/20/24 13:38 06/20/24 15:30 Labs: Abnormal Lab Results - Last 24 Hours (Table) 06/20/24 06/20/24 06/20/24 Range/Units 13:38 13:38 13:38 WBC 12.1 H (3.8-10.6) k/uL Sodium (137-145) mmol/L Chloride 109 H (98-107) mmol/L Carbon Dioxide 20 L (22-30) mmol/L Glucose 133 H (74-99) mg/dL POC Glucose (mg/dL) (70-110) mg/dL Total Protein (6.3-8.2) g/dL TSH 33.800 H (0.465-4.680) mIU/L 06/20/24 06/20/24 Range/Units 15:30 15:52 WBC (3.8-10.6) k/uL Sodium 136 L (137-145) mmol/L Chloride 108 H (98-107) mmol/L Carbon Dioxide 20 L (22-30) mmol/L Glucose 157 H (74-99) mg/dL POC Glucose (mg/dL) 153 H (70-110) mg/dL Total Protein 6.1 L (6.3-8.2) g/dL TSH (0.465-4.680) mIU/L
[2024-06-20] MEDS: carvediloL 3.125 MG TAB PO SCH (18:54)
[2024-06-20] MEDS: ATORVASTATIN 40 MG TAB PO SCH (21:38)
--- NOTE | 2024-06-20 21:59 | PCN ---
PROCEDURE NOTE PULMONARY/CRITICAL CARE PROCEDURE NOTE: PROCEDURE PERFORMED: Right radial arterial line. PREOPERATIVE DIAGNOSES: Frequent blood draws and blood gas monitoring, hypotension. Patient on norepinephrine. POSTOPERATIVE DIAGNOSES: Frequent blood draws and blood gas monitoring, hypotension. Patient on norepinephrine. RN HEMO DIALYSIS: Dr. Lafleur. POSITION CLASSIFICATION MANAGER: Dr. Edna Pena. ARTERIAL LINE PLACEMENT: Indications: Hemodynamic monitoring. A time-out was completed verifying correct patient, procedure, site, positioning, and implant(s) or special equipment if applicable. Alexander's test was performed to ensure adequate perfusion. The patient's right wrist or right groin was prepped and draped in sterile fashion. 1% Lidocaine was used to anesthetize the area. An 18G Arrow arterial line was introduced into the right radial artery. The catheter was threaded over the guide wire and the needle was removed with appropriate pulsatile blood return. Blood loss was minimal. The catheter was then sutured in place to the skin and a sterile dressing applied. Perfusion to the extremity distal to the point of catheter insertion was checked and found to be adequate. There was no immediate complication. There was good waveform and blood pressure reading. The catheter was sutured in place. Sterile dressing was applied by the nurse. The patient tolerated the procedure well without any difficulty whatsoever. MMODL / IJN: [id number] /
--- NOTE | 2024-06-20 22:02 | PCN ---
PROCEDURE NOTE PROCEDURE PERFORMED: Left internal jugular triple-lumen catheter. PREOPERATIVE DIAGNOSIS: Administration of fluids and pressors. POSTOPERATIVE DIAGNOSIS: Administration of fluids and pressors. FILLER SIFTER HELPER: Dr. Lafleur. FIRST DOUGH MIXER OPERATOR: Edna Pena. There was informed consent and universal timeout. The patient's procedure was done in the ICU, room 252. TRIPLE LUMEN CATHETER PLACEMENT: Indication: Hemodynamic monitoring/Intravenous access. A time-out was completed verifying correct patient, procedure, site, positioning, and implant(s) or special equipment if applicable. The patient was placed in a dependent position appropriate for triple lumen catheter placement based on the vein to be cannulated. The patient's left shoulder or left neck or left groin was prepped and draped in sterile fashion. 1% Lidocaine was used to anesthetize the surrounding skin area. A triple lumen 9F Cordis catheter was introduced into the left internal jugular vein using Seldinger technique. The catheter was threaded smoothly over the guide wire and appropriate blood return was obtained. Each lumen of the catheter was evacuated of air and flushed with sterile saline. The catheter was then sutured in place to the skin and a sterile dressing applied. Perfusion to the extremity distal to the point of catheter insertion was checked and found to be adequate. We went via the posterior approach. There was good blood return from all 3 ports. The catheter was sutured in place. Sterile dressing was applied by the nurse. The tip of the catheter was seen at the junction of superior vena cava in the right atrium. A chest x-ray was ordered. There was no immediate complication. The patient tolerated the procedure well. MMODL / IJN: [id number] /
[2024-06-21 02:48] LABS: Chol/HDL Ratio 4.16 Ratio; LDL Cholesterol,Calculated 117.4 mg/dL (0.0-131.0)
[2024-06-21 04:51] LABS: Basophils % (A) 0 %; Eosinophils % (A) 0 %; HCT 46.4 % (39.0-53.0); HGB 14.7 gm/dL (13.0-17.5); Lymphocytes # (A) 1.1 k/uL (1.0-4.8); Lymphocytes % (A) 11 %; MCH 29.5 pg (25.0-35.0); MCHC 31.7 g/dL (31.0-37.0); Mean Platelet Volume 7.5; Monocytes # (A) 0.2 k/uL (0-1.0); Monocytes % (A) 2 %; Neutrophils # (A) 8.6 k/uL (1.3-7.7); Neutrophils % (A) 87 %; Platelet Count 314 k/uL (150-450); RBC 4.99 m/uL (4.30-5.90); RDW 13.5 % (11.5-15.5); WBC 9.9 k/uL (3.8-10.6)
[2024-06-21 05:02] LABS: ALT 32 U/L (4-49); AST 153 U/L (17-59); African American GFR (CKD) >90 (>60 ml/min/1.73 sqM); Albumin 3.8 g/dL (3.5-5.0); Alkaline Phosphatase 74 U/L (38-126); Anion Gap 5 mmol/L; Blood Urea Nitrogen 18 mg/dL (9-20); Calcium 9.1 mg/dL (8.4-10.2); Carbon Dioxide 21 mmol/L (22-30); Chloride 110 mmol/L (98-107); Glucose 137 mg/dL (74-99); Non-African American GFR(CKD) 83 (>60 ml/min/1.73 sqM); Potassium 4.6 mmol/L (3.5-5.1); Sodium 136 mmol/L (137-145); Total Bilirubin 0.7 mg/dL (0.2-1.3); Total Protein 6.2 g/dL (6.3-8.2)
[2024-06-21 05:31] LABS: Partial Thromboplastin Time 41.4 sec (22.0-30.0); Prothrombin Time 11.1 sec (10.0-12.5)
[2024-06-21] MEDS: HEPARIN SODIUM 1,000 UN/ML (10ML VL) IV PRN (05:56)
[2024-06-21] MEDS ORDERED: LEVOTHYROXINE 50 MCG TAB PO SCH (06:30)
[2024-06-21] MEDS: LEVOTHYROXINE 100 MCG TAB PO SCH (06:38)
[2024-06-21] MEDS: ASPIRIN 81 MG PO SCH (08:53)
--- NOTE | 2024-06-21 09:03 | US ---
EXAMINATION TYPE: US vein mapping BILAT DATE OF EXAM: 06/21/2024 8:38 AM COMPARISON: NONE CLINICAL INDICATION: Male, 68 years old with history of preop open heart; PreOp TECHNIQUE: Grayscale and color Doppler imaging of the lower extremity venous system. SIDE PERFORMED: Bilateral FINDINGS: PATIENT HISTORY: Smoker: N/A Heart Disease: Yes Previous DVT: N/A Vascular Surgery: N/A Discoloration: No Hypertension: N/A Diabetes: N/A Paralysis: No Varicosities: No Edema: No DUPLEX FINDINGS: Greater Saphenous: Color flow seen Lesser Saphenous: Color flow seen Measurements in mm: Right Greater Saphenous: Groin: Unable to obtain due to groin balloon High Thigh: 3.0 x 3.5 mm Mid Thigh: 2.2 x 2.5 mm Above Knee: 3.0 x 2.9 mm Knee: 2.2 x 2.1 mm Below Knee: 2.4 x 2.3 mm Mid Calf: 2.0 x 1.6 mm At Ankle: 2.3 x 2.0 mm Left Greater Saphenous: Groin: 5.8 x 5.7 mm High Thigh: 3.2 x 3.0 mm Mid Thigh: 3.2 x 2.9 mm Above Knee: 2.2 x 1.9 mm Knee: 2.1 x 1.7 mm Below Knee: 2.3 x 2.3 mm Mid Calf: 2.1 x 1.9 mm At Ankle: 2.3 x 2.2 mm IMPRESSION: 1. No evidence for occlusion. 2. GSV measurements listed above. 3. Performing surgeon to determine viability as conduit. [facility], , 06/21/2024 9:01 AM
--- NOTE | 2024-06-21 09:04 | US ---
EXAMINATION TYPE: Pre-Operative Non-Invasive Evaluation of the hand for Potential Radial Artery Nataliia , Measurements only DATE OF EXAM: 06/21/2024 8:38 AM CLINICAL INDICATION: Male, 68 years old with history of measurements only for preop open heart; PreOp SIDE PERFORMED: Left TECHNIQUE: Grayscale color Doppler imaging of the radial artery(s) FINDINGS: Dominant hand: Right Duplex Findings: Radial Artery: Color flow seen Measurements in mm, transverse view: Left Radial: Proximal: 3.1 x 2.7 mm Mid: 2.7 x 2.5 mm Distal: 3.3 x 3.0 mm IMPRESSION: 1. Left Radial artery measurements listed above. 2. Performing surgeon to determine viability as conduit. [facility], , 06/21/2024 9:02 AM
--- NOTE | 2024-06-21 09:04 | US ---
EXAMINATION TYPE: US carotid duplex BILAT DATE OF EXAM: 06/21/2024 COMPARISON: NONE CLINICAL INDICATION: Male, 68 years old with history of preop open heart; PreCabg. TECHNIQUE: Grayscale, color Doppler and spectral Doppler evaluation of the bilateral carotid systems and vertebral arteries.Indirect Doppler criteria was utilized. FINDINGS: EXAM MEASUREMENTS: RIGHT: Peak Systolic Velocity (PSV) cm/sec ----- Right CCA: 69.1 ----- Right ICA: 63.6 ----- Right ECA: 114.5 ICA/CCA ratio: 0.9 RIGHT: End Diastole cm/sec ----- Right CCA: 19.7 ----- Right ICA: 20.0 ----- Right ECA: 19.2 LEFT: Peak Systolic Velocity (PSV) cm/sec ----- Left CCA: 63.3 ----- Left ICA: 51.2 ----- Left ECA: 95.6 ICA/CCA ratio: 0.8 LEFT: End Diastole cm/sec ----- Left CCA: 0.0 ----- Left ICA: 20.6 ----- Left ECA: 5.0 VERTEBRALS (direction of flow): Right Vertebral: Antegrade Left Vertebral: Antegrade Rhythm: Arrhythmia PLASTIC SURGERY NURSE NOTES: Bilateral wall thickening. Plaque in bilateral bulbs. No elevated velocities. IMPRESSION: No evidence for hemodynamically significant stenosis. Criteria for Assigning % of Stenosis / Diameter reduction (Estimation based on the indirect measurements of the internal carotid artery velocities (ICA PSV). 1. Normal (no stenosis)=ICA PSV < 125 cm/s: ratio < 2.0: ICA EDV<40 cm/s. 2. Less than 50% stenosis=ICA PSV < 125 cm/s: ratio < 2.0: ICA EDV<40 cm/s. 3. 50 to 69% stenosis=ICA PSV of 125 to 230 cm/s: ration 2.0 ? 4.0: ICA EDV 40-100 cm/s. 4. Greater than 70% stenosis to near occlusion= ICA PSV > 230 cm/s: ratio > 4.0: ICA EDV > 100 cm/s. 5. Near occlusion= ICA PSV velocities may be low or undetectable: variable ratio and ICA EDV. 6. Total occlusion=unable to detect flow. [facility], , 06/21/2024 9:02 AM
[2024-06-21] MEDS: LEVOTHYROXINE 50 MCG TAB PO ONE (09:24)
[2024-06-21] MEDS: PANTOPRAZOLE 40 MG TABLET PO SCH (09:24)
--- NOTE | 2024-06-21 10:13 | XR ---
EXAMINATION TYPE: XR chest 1V portable DATE OF EXAM: 06/21/2024 9:55 AM COMPARISON: Chest radiographs from 06/20/2024 TECHNIQUE: XR chest 1V portable Portable AP radiograph of the chest. CLINICAL INDICATION:Male, 68 years old with history of IABP; FINDINGS: Lungs/Pleura: There is no evidence of pleural effusion, focal consolidation, or pneumothorax. Pulmonary vascularity: Prominent Heart/mediastinum: Cardiomediastinal silhouette is enlarged and stable. Musculoskeletal: No acute osseous pathology. Other findings: None Lines/Tubes: Stable position of left IJ central venous catheter with tip terminating in the low SVC. Unchanged position of aortic and ventricular cardiac leads. IMPRESSION: Overall stable examination with stable position of support lines. [facility], , 06/21/2024 10:10 AM
--- NOTE | 2024-06-21 10:29 | P.PN ---
Subjective Progress Note Date: 06/21/24 Principal diagnosis: Coronary artery disease with left main disease, STEMI this admission status post intra-aortic balloon placement, V-fib arrest x 2 with defibrillation, complete heart block status post temporary transvenous pacemaker placement, syncopal episode. History of dermatomyositis, hypothyroid The patient was seen and examined this morning laying in bed in ICU in no acute distress. Patient is alert, oriented, denies pain, shortness of breath. Hemodynamics more stable today. IABP remains in place, TVP in place and placed to backup rate of 60 BPM due to competing with intrinsic rate. Currently sinus rhythm. Remains on IV lido, levo off since yesterday. Discussed need for open heart again with patient, likely plan for Wednesday. Case discussed in detail radha Christina and Dr. Seaman. Unable to complete 5 meter walk test due to IABP and bedrest, bedside spirometry not performed last night as patient was unstable, will attempt today or tomorrow although unlikely to be accurate due to inability to sit up. Objective - Vital Signs Vital signs: Vital Signs Temp 97.9 F 06/21/24 04:00 Pulse 79 06/21/24 07:00 Resp 17 06/21/24 07:00 BP 105/60 06/20/24 13:40 Pulse Ox 98 06/21/24 07:00 FiO2 Intake & Output 06/20/24 06/21/24 06/21/24 18:59 06:59 18:59 Intake Total 849.65 853.578 Output Total 375 980 Balance 474.65 -126.422 Weight 115 kg 107.6 kg Intake: IV 833 693 0.9 @ KVO 30 130 Sodium Chloride 0.9% 1, 225 225 000 ml @ 75 mls/hr IV . [id number] [facility] Rx#:[id number] pressure bags 18 78 tvp 60 260 Intake, IV Titration 16.65 160.578 Amount Heparin Sod,Pork in 0.45% 160.578 NaCl 25,000 unit In 0.45 % NaCl 1 250ml.bag @ 8.7 UNITS/KG/HR 10.005 mls/hr IV .Q24H [facility] Rx#: [id number] Norepinephrine 4 mg In 16.65 Sodium Chloride 0.9% 250 ml @ 0.03 MCG/KG/MIN 13. 145 mls/hr IV .[id number] [facility] Rx#:[id number] Output: Urine 375 980 Other: Voiding Method Indwelling Catheter Indwelling Catheter ABP, PAP, CO, CI - Last Documented Arterial Blood Pressure 137/71 - Exam CONSTITUTIONAL: Appears comfortable, cooperative, no acute distress RESPIRATORY: Lungs sounds diminished bilaterally. Respirations even, nonlabored. Currently on 2 LPM NC with oxygen saturation 99% CARDIOVASCULAR: S1, S2 present. Regular rate and rhythm, sinus rhythm on telemetry. Doppler lower extremity pulses bilaterally. No edema present. No calf pain or tenderness noted GASTROINTESTINAL: Abdomen soft, nontender, nondistended. Active bowel sounds present 4 quadrants GENITOURINARY: Queen present draining clear, yellow urine. Output overnight 60-80 mL per hour, 1355 mL in the last 24 hours INTEGUMENTARY: Skin is warm and dry with evidence of good perfusion NEUROLOGIC: Cranial nerves II through XII intact MUSKULOSKELETAL: Able to move all extremities, strength equal bilaterally PSYCHIATRIC: Alert and oriented to person place and time, appropriate affect, intact judgment and insight INVASIVE LINES AND TUBES: Transvenous pacemaker wire present, connected to generator, backup rate 60 bpm. Left internal jugular central line, right radial arterial line present. Right femoral IABP present with 1:1 augmentation - Allied health notes Allied health notes reviewed: nursing - Labs CBC & Chem 7: 06/21/24 04:25 06/21/24 04:25 Labs: Abnormal Lab Results - Last 24 Hours (Table) 06/20/24 06/20/24 06/20/24 Range/Units 13:38 13:38 13:38 WBC 12.1 H (3.8-10.6) k/uL Neutrophils # (1.3-7.7) k/uL APTT (22.0-30.0) sec Sodium (137-145) mmol/L Chloride 109 H (98-107) mmol/L Carbon Dioxide 20 L (22-30) mmol/L Glucose 133 H (74-99) mg/dL POC Glucose (mg/dL) (70-110) mg/dL AST (17-59) U/L Total Protein (6.3-8.2) g/dL TSH 33.800 H (0.465-4.680) mIU/L 06/20/24 06/20/24 06/20/24 Range/Units 15:30 15:52 21:32 WBC (3.8-10.6) k/uL Neutrophils # (1.3-7.7) k/uL APTT 40.5 H (22.0-30.0) sec Sodium 136 L (137-145) mmol/L Chloride 108 H (98-107) mmol/L Carbon Dioxide 20 L (22-30) mmol/L Glucose 157 H (74-99) mg/dL POC Glucose (mg/dL) 153 H (70-110) mg/dL AST (17-59) U/L Total Protein 6.1 L (6.3-8.2) g/dL TSH (0.465-4.680) mIU/L 06/21/24 06/21/24 06/21/24 Range/Units 04:25 04:25 04:25 WBC (3.8-10.6) k/uL Neutrophils # 8.6 H (1.3-7.7) k/uL APTT 41.4 H (22.0-30.0) sec Sodium 136 L (137-145) mmol/L Chloride 110 H (98-107) mmol/L Carbon Dioxide 21 L (22-30) mmol/L Glucose 137 H (74-99) mg/dL POC Glucose (mg/dL) (70-110) mg/dL AST 153 H (17-59) U/L Total Protein 6.2 L (6.3-8.2) g/dL TSH (0.465-4.680) mIU/L - Imaging and Cardiology Chest x-ray: report reviewed, image reviewed Assessment and Plan Assessment: Coronary artery disease with left main disease, STEMI this admission status post intra-aortic balloon placement V-fib arrest x 2 with defibrillation Complete heart block status post temporary transvenous pacemaker placement Syncopal episode History of dermatomyositis, on Cellcept outpatient, last dose 06/20 Hypothyroid, TSH 33.8, T4 1.32 Plan: Continue to maximize medical therapy with ASA, statin, BB Continue lido gtt per cardiology Continue IABP Synthroid increased to 250 mcg daily Right sided EKG completed and reviewed with Dr. Christina and Dr. Seaman Likely will take patient for off pump CABG on Wednesday with Dr. Christina Medical management per internal medicine, cardiology, media promoter More recommendations to follow
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
[2024-06-21] MEDS: carvediloL 6.25 MG TAB PO SCH (17:18)
[2024-06-22 05:15] LABS: HCT 41.9 % (39.0-53.0); MCH 30.4 pg (25.0-35.0); MCHC 33.5 g/dL (31.0-37.0); MCV 90.8 fL (80.0-100.0); Mean Platelet Volume 8.1; Platelet Count 270 k/uL (150-450); RBC 4.62 m/uL (4.30-5.90); WBC 10.8 k/uL (3.8-10.6)
[2024-06-22 05:39] LABS: ALT 30 U/L (4-49); AST 94 U/L (17-59); African American GFR (CKD) >90 (>60 ml/min/1.73 sqM); Albumin 3.3 g/dL (3.5-5.0); Alkaline Phosphatase 70 U/L (38-126); Anion Gap 2 mmol/L; Blood Urea Nitrogen 18 mg/dL (9-20); Calcium 8.6 mg/dL (8.4-10.2); Carbon Dioxide 24 mmol/L (22-30); Chloride 110 mmol/L (98-107); Glucose 93 mg/dL (74-99); Magnesium 1.9 mg/dL (1.6-2.3); Non-African American GFR(CKD) 82 (>60 ml/min/1.73 sqM); Potassium 4.1 mmol/L (3.5-5.1); Sodium 136 mmol/L (137-145); Total Bilirubin 0.8 mg/dL (0.2-1.3); Total Protein 5.6 g/dL (6.3-8.2)
[2024-06-22] MEDS: LEVOTHYROXINE 125 MCG TAB PO SCH (06:36)
--- NOTE | 2024-06-22 08:40 | XR ---
EXAMINATION TYPE: XR chest 1V portable DATE OF EXAM: 06/22/2024 HISTORY: Shortness of breath. COMPARISON: 06/21/2024 TECHNIQUE: Single view of the chest is submitted. FINDINGS: Demonstrated are scattered senescent parenchymal change. Basilar patchy infiltrates are noted. Correlate for pneumonia. The heart is stable. Hilar and mediastinal structures are within normal limits. Degenerative changes are seen of the dorsal spine. IMPRESSION: 1. Basilar patchy infiltrates are noted. Correlate for pneumonia. [facility], , 06/22/2024 8:38 AM
--- NOTE | 2024-06-22 08:59 | P.PN ---
Subjective Progress Note Date: 06/22/24 Principal diagnosis: Coronary artery disease with left main disease, STEMI this admission status post intra-aortic balloon placement, V-fib arrest x 2 with defibrillation, complete heart block status post temporary transvenous pacemaker placement, syncopal episode. History of dermatomyositis, hypothyroid and is a lifetime non-smoker. The patient was seen and examined this morning June 22, 2024, the patient is laying in bed in ICU in no apparent acute distress. The patient is awake, alert, oriented x 3 and is in no acute apparent distress. Denies any complaints of pain or shortness of breath at this time. The intra-aortic balloon pump remains in place on a 1:1 setting, current blood pressure on the IABP is 139/74 with an augmented pressure of 156. Lidocaine drip remains infusing at 1 mg/min and heparin drip remains infusing per protocol. TVP pacer remains in place and is on a VVI backup of 60 bpm. Bedside telemetry is currently showing normal sinus rhythm heart rate 77 bpm. The patient is scheduled for off-pump myocardial revascularization surgery tomorrow June 23, 2024 with left internal mammary artery, endoscopic vein harvest, possible endoscopic left radial artery harvest, intraoperative transesophageal echocardiogram and exclusion left atrial appendage to be performed by Dr. Gibson Christina. Preoperative teaching has been reinforced with the patient and his family present at his bedside. A 5 m walk test has not been completed with the patient as the patient remains with the IABP and transvenous pacer in place. STS risk score has been calculated and discussed with the patient. A clinical frailty score was also calculated which equals 3. Laboratory and chest x-ray results were reviewed. Objective - Vital Signs Vital signs: Vital Signs Temp 97.8 F 06/22/24 04:00 Pulse 64 06/22/24 07:00 Resp 15 06/22/24 07:00 BP 105/60 06/20/24 13:40 Pulse Ox 98 06/22/24 07:00 FiO2 Intake & Output 06/21/24 06/22/24 06/22/24 18:59 06:59 18:59 Intake Total 1025.841 871.009 36 Output Total 1210 1335 60 Balance -184.159 -463.991 -24 Weight 110.2 kg Intake: IV 396 432 36 0.9 @ KVO 110 120 10 pressure bags 66 72 6 tvp 220 240 20 Intake, IV Titration 79.841 439.009 Amount Heparin Sod,Pork in 0.45% 79.841 230.759 NaCl 25,000 unit In 0.45 % NaCl 1 250ml.bag @ 8.7 UNITS/KG/HR 10.005 mls/hr IV .Q24H [facility] Rx#: [id number] Lidocaine-D5w Pmx 2G/ 208.25 250Ml 2,000 mg In Dextrose/Water 1 250ml. bag @ 1 MG/MIN 7.5 mls/hr IV .Q24H [facility] Rx#: [id number] Oral 550 Output: Urine 1210 1335 60 Other: Voiding Method Indwelling Catheter Indwelling Catheter ABP, PAP, CO, CI - Last Documented Arterial Blood Pressure 107/82 - Exam CONSTITUTIONAL: Appears comfortable, cooperative, no acute distress RESPIRATORY: Lungs sounds diminished bilaterally. Respirations even, non labored. Currently on 2 LPM NC with oxygen saturation 98% CARDIOVASCULAR: S1, S2 present. Regular rate and rhythm, sinus rhythm on telemetry. Doppler lower extremity pulses bilaterally. No edema present. No calf pain or tenderness noted GASTROINTESTINAL: Abdomen soft, nontender, nondistended. Active bowel sounds present 4 quadrants GENITOURINARY: Queen present draining clear, yellow urine. Urine output 760 mL in the last 8 hours. INTEGUMENTARY: Skin is warm and dry with no clubbing or cyanosis present. Right groin soft to palpate at the IABP insertion site and TVP insertion site. NEUROLOGIC: Cranial nerves II through XII intact. No focal deficits. MUSKULOSKELETAL: Able to move all extremities, strength equal bilaterally PSYCHIATRIC: Alert and oriented to person place and time, appropriate affect, intact judgment and insight INVASIVE LINES AND TUBES: Transvenous pacemaker wire present, connected to generator, backup rate 60 bpm. Left internal jugular central line, right radial arterial line present. Right femoral IABP present with 1:1 augmentation - Allied health notes Allied health notes reviewed: nursing - Labs CBC & Chem 7: 06/22/24 04:30 06/22/24 04:30 Labs: Abnormal Lab Results - Last 24 Hours (Table) 06/21/24 06/22/24 06/22/24 Range/Units 12:06 04:30 04:30 WBC 10.8 H (3.8-10.6) k/uL APTT 71.2 H 50.1 H (22.0-30.0) sec Sodium (137-145) mmol/L Chloride (98-107) mmol/L AST (17-59) U/L Total Protein (6.3-8.2) g/dL Albumin (3.5-5.0) g/dL 06/22/24 Range/Units 04:30 WBC (3.8-10.6) k/uL APTT (22.0-30.0) sec Sodium 136 L (137-145) mmol/L Chloride 110 H (98-107) mmol/L AST 94 H (17-59) U/L Total Protein 5.6 L (6.3-8.2) g/dL Albumin 3.3 L (3.5-5.0) g/dL - Imaging and Cardiology Chest x-ray: report reviewed, image reviewed Assessment and Plan Assessment: Coronary artery disease with left main disease, STEMI this admission status post intra-aortic balloon placement V-fib arrest x 2 with defibrillation Complete heart block status post temporary transvenous pacemaker placement Syncopal episode History of dermatomyositis, on Cellcept outpatient, last dose 06/20 Hypothyroid, TSH 33.8, T4 1.32 Plan: Continue to maximize medical therapy with low-dose ASA, statin, and beta- willie. Continue lidocaine drip per cardiology, currently infusing at 1 mg/min. Encourage use of incentive spirometry 10 times every hour while awake. Bedside FEV1 completed which showed 2.03 L, 68% of predicted value. Continue IABP, currently on a 1:1 setting. Synthroid increased to 250 mcg daily, TSH was 33.800, free T4 was 1.32. The patient is scheduled for off-pump myocardial revascularization surgery with left internal mammary artery, endoscopic vein harvest, possible endoscopic left radial artery harvest, exclusion left atrial appendage and intraoperative transesophageal echocardiogram with the surgery to be performed by Dr. Gibson Christina, scheduled for Sunday, June 23, 2024. N.p.o. after midnight. Medical management per internal medicine, cardiology, traffic police officer recommendations. Heparin drip management per cardiology. Continue transvenous pacemaker, currently on VVI backup of 60 bpm. More recommendations to follow based on patient's clinical course. Time with Patient: Greater than 30
[2024-06-22] MEDS ORDERED: Magnesium Replacement Protocol 1 EACH MISC MISCELLANE PRN (09:22)
[2024-06-22] MEDS: MAGNESIUM SULFATE-D5W PMX 1 GM in DEXTROSE/WATER 1 100ML.BAG IVPB ONE (10:05)
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
[2024-06-22 10:57] LABS: Appearance,Urine Clear (Clear); Bilirubin,Urine Negative (Negative); Blood,Urine Trace (Negative); Color,Urine Colorless; Glucose,Urine (UA) Negative (Negative); Ketones,Urine Negative (Negative); Leukocyte Esterase,Urine Trace (Negative); Mucus,Urine Rare /hpf; Nitrite,Urine Negative (Negative); Protein,Urine Negative (Negative); RBC,Urine 2 /hpf (0-5); Urobilinogen,Urine <2.0 mg/dL (<2.0); WBC,Urine 3 /hpf (0-5)
--- NOTE | 2024-06-22 11:54 | P.PCN ---
Date of Procedure: 06/22/24 Description of Procedure: HPI: [This gentleman presented to the hospital with ventricular fibrillation requiring defibrillation, had a ST elevation SD complicated by both ventricular arrhythmia as well as a complete heart block that was transient. Cardiac catheterization revealed a distal left main and proximal LAD severe stenosis as well as proximal RCA. Circumflex was nondominant no significant disease. He has a temporary pacemaker set at a lower rate of 60. Patient is currently in sinus rhythm with a normal NV interval narrow QRS. It appears that the complete heart block has resolved. I am recommending that we cut down the pacer rate down to 50 bpm as a backup. He is doing well otherwise hemodynamically stable at this time. He is going for aortocoronary bypass surgery tomorrow. Patient is comfortable and resting. No chest pain. Echo revealed preserved systolic function. Patient remains hypothyroid on replacement therapy TSH is still high. PHYSICIAL EXAM: [Vitals are stable no JVD S1-S2 heard normally short systolic murmur at the base second heart sound preserved lungs are clear abdomen is soft the cath sites are clean and dry.]. IMPRESSION: 1. [Acute inferior SD with complete heart block and ventricular fibrillation has a temporary backup pacemaker]. 2. [Hypothyroidism on replacement therapy TSH is still high but free T4 is okay]. 3. []. 4. []. 5. []. RECOMMENDATIONS: [Reduce the pacemaker rate to 50 bpm as backup same medical regimen patient is going for aortocoronary bypass surgery tomorrow. Prognosis remains guarded].
[2024-06-22] MEDS: MUPIROCIN 2% OINT 22 GM TUBE NASAL SCH (12:04)
[2024-06-22] MEDS: MD COMMUNICATION TO PHARMACY 1 EACH MISC PO ONE ×4 (12:04)
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
[2024-06-23] MEDS ORDERED: PHENYLEPHRINE 40 MG in SODIUM CHLORIDE 0.9% 250 ML IV ONE (05:00)
[2024-06-23] MEDS ORDERED: SODIUM BICARB 8.4% 50 ML SYR (1 MEQ/ML) IV ONE (05:00)
[2024-06-23] MEDS ORDERED: MANNITOL 25% 12.5 GM/50 ML VIAL IV ONE ×2 (05:00)
[2024-06-23] MEDS ORDERED: PAPAVERINE 360 MG in SODIUM CHLORIDE 0.9% 90 ML IV ONE (05:00)
[2024-06-23] MEDS ORDERED: PROTAMINE SULFATE 10 MG/ML 25 ML VIAL IV ONE ×2 (05:00→07:45)
[2024-06-23] MEDS ORDERED: MAGNESIUM SULFATE 16.24 MEQ in EMPTY SYRINGE 1 SYR IV ONE (05:00)
[2024-06-23] MEDS ORDERED: NOREPINEPHRINE 4 MG in SODIUM CHLORIDE 0.9% 250 ML IV SCH (05:00)
[2024-06-23] MEDS ORDERED: CLEVIDIPINE BUTYRATE 25 MG in EMPTY BAG 1 BAG IV SCH (05:00)
[2024-06-23] MEDS ORDERED: METOPROLOL TARTRATE 12.5 MG TAB PO ONE (05:00)
[2024-06-23] MEDS ORDERED: NITROGLYCERIN-D5W PMX 50 MG in DEXTROSE/WATER 1 250ML.BAG IV SCH (05:00)
[2024-06-23] MEDS ORDERED: NITROGLYCERIN-D5W PMX 25 MG/250 ML BTL IV ONE (05:00)
[2024-06-23] MEDS ORDERED: PROTAMINE SULFATE 250 MG in EMPTY BAG 1 BAG IV ONE (05:00)
[2024-06-23] MEDS ORDERED: TRANEXAMIC ACID 2,000 MG in SODIUM CHLORIDE 0.9% 80 ML IV ONE ×2 (05:00→06:00)
[2024-06-23] MEDS ORDERED: CARDIOPLEGIC SOLN (K+ 16 MEQ/L 1,000 ML with SOD BICARB SYR 8.4% (1 MEQ/ML) 20 ML, LIDO... PERFUSION NR (06:00)
[2024-06-23] MEDS ORDERED: PHENYLEPHRINE 10 MG/ML VIAL IV ONE (06:00)
[2024-06-23] MEDS ORDERED: INSULIN REGULAR 100 UNIT in SODIUM CHLORIDE 0.9% 100 ML IV SCH (06:00)
[2024-06-23 06:16] LABS: Basophils % (A) 0 %; Eosinophils # (A) 0.1 k/uL (0-0.7); Eosinophils % (A) 1 %; HCT 45.3 % (39.0-53.0); HGB 15.3 gm/dL (13.0-17.5); Lymphocytes # (A) 1.8 k/uL (1.0-4.8); Lymphocytes % (A) 20 %; MCH 30.8 pg (25.0-35.0); MCHC 33.8 g/dL (31.0-37.0); MCV 91.1 fL (80.0-100.0); Mean Platelet Volume 7.9; Monocytes # (A) 0.6 k/uL (0-1.0); Monocytes % (A) 6 %; Neutrophils # (A) 6.5 k/uL (1.3-7.7); Neutrophils % (A) 72 %; Platelet Count 243 k/uL (150-450); RBC 4.97 m/uL (4.30-5.90)
[2024-06-23 06:23] LABS: ALT 26 U/L (4-49); AST 52 U/L (17-59); African American GFR (CKD) >90 (>60 ml/min/1.73 sqM); Albumin 3.5 g/dL (3.5-5.0); Alkaline Phosphatase 79 U/L (38-126); Anion Gap 3 mmol/L; Blood Urea Nitrogen 16 mg/dL (9-20); Calcium 8.8 mg/dL (8.4-10.2); Carbon Dioxide 25 mmol/L (22-30); Chloride 108 mmol/L (98-107); Glucose 94 mg/dL (74-99); Magnesium 1.9 mg/dL (1.6-2.3); Non-African American GFR(CKD) 79 (>60 ml/min/1.73 sqM); Sodium 136 mmol/L (137-145); Total Bilirubin 0.7 mg/dL (0.2-1.3); Total Protein 5.9 g/dL (6.3-8.2)
[2024-06-23] MEDS ORDERED: ePHEDrine 50 MG/ML 1 ML VIAL ONE (07:45)
[2024-06-23] MEDS ORDERED: GLYCOPYRROLATE 0.2 MG/ML 2 ML VIAL ONE (07:45)
[2024-06-23] MEDS ORDERED: NITROGLYCERIN-D5W PMX 50 MG/250 ML BOTTLE IV ONE (07:45)
[2024-06-23] MEDS ORDERED: HEPARIN SODIUM,PORCINE 5,000 UNIT/ML 1 ML VIAL ONE (07:45)
[2024-06-23] MEDS ORDERED: LIDOCAINE 2% SYG (PF) 100 MG/5 ML ONE (07:45)
[2024-06-23] MEDS ORDERED: HEPARIN SODIUM,PORCINE 10,000 UNIT/ML 1 ML VIAL ONE (07:45)
[2024-06-23] MEDS ORDERED: ALBUMIN HUMAN 5% (25gm) 500 ML VIAL IVPB ONE (07:45)
[2024-06-23] MEDS ORDERED: MIDAZOLAM HCL 10 MG/10 ML VIAL ONE (07:45)
[2024-06-23] MEDS ORDERED: PROPOFOL 10 MG/ML 20 ML VIAL IV ONE (07:45)
[2024-06-23] MEDS ORDERED: fentaNYL (PF) 50 MCG/ML 50 ML VIAL ONE (07:45)
[2024-06-23] MEDS ORDERED: VECURONIUM 10 MG VIAL IV ONE (07:45)
--- NOTE | 2024-06-23 07:46 | XR ---
EXAMINATION TYPE: XR chest 1V portable DATE OF EXAM: 06/23/2024 HISTORY: Shortness of breath. COMPARISON: 06/22/2024 TECHNIQUE: Single view of the chest is submitted. FINDINGS: Demonstrated are scattered senescent parenchymal change. There is no evidence for focal infiltrate. Pulmonary venous congestion with interstitial prominence and mild cardiomegaly remain stable. Intra-a ortic balloon pump marker. Hilar and mediastinal structures are within normal limits. Degenerative changes are seen of the dorsal spine. IMPRESSION: 1. Pulmonary venous congestion with interstitial prominence and mild cardiomegaly remain stable. [facility], , 06/23/2024 7:44 AM
--- NOTE | 2024-06-23 08:02 | P.ANPRN ---
Procedure Note - Anesthesia - Invasive Line Right Central Line Time Out Performed: Yes ([id number]) Date of Procedure: 06/23/24 Time of Procedure: 07:15 ( ICU Room 252) Preparation: Sterile Prep, Sterile Dressing Central Line Location: Internal Jugular (right) Ultrasound Used: Yes Purpose - Visualization and Identification of Vasculature: Yes Needle Guage: 18g angio Image Stored and Saved: Yes Narrative: Invasive line placement per sterile protocol utilized. Anesthesia note Procedure: Right internal jugular central venous catheter insertion: 8.5-British Cordis Sterile protocol followed. Right neck prepped. Ultrasound used. Lidocaine 1% used. Using ultrasound local anesthetic was instilled site over right Internal Jugular vein. Angiocath was used to gain access via ultrasound. Once free flow non-pulsatile blood flow was confirmed, 12 inch extension tubing was then placed on Angiocath. Once central venous pressure was confirmed, J-wire was then placed through Angiocath. Angiocath was then withdrawn. Local was instilled at J-wire site. Small skin shannan was then made with provided sterile scalpel. 8.5- [place] Cordis was then inserted over the wire while maintaining control of wire at all times. Uneventful insertion with dilation. Free flow nonpulsatile blood flow through Cordis. Hooked up to IV tubing. Secured with suture. Dressings applied. Drapes Removed. Attempts x1.
--- NOTE | 2024-06-23 08:05 | P.ANPRN ---
Procedure Note - Anesthesia - Invasive Line Right [place] Nate Time Out Performed: Yes (714) Date of Procedure: 06/23/24 Time of Procedure: 07:31 Location of Patient: PreOp Preparation: Sterile Prep, Sterile Dressing [place] Nate Line Location: Internal Jugular (right) Ultrasound Used: No Purpose - Visualization and Identification of Vasculature: No Image Stored and Saved: No Narrative: Invasive line placement per sterile protocol utilized. Anesthesia note Procedure right [place]-Nate catheter placed through right internal jugular central venous catheter Sterile protocol maintained from previous procedure. [place]-Nate catheter sterilely placed in sheath and flushed prior to insertion. After advancing 15 cm [place]-Nate catheter was then slowly inserted with balloon up. Advanced through CVP, RV to PA waveform. [place]-Nate catheter wedged around 56 cm. Balloon down. Catheter withdrawn 5 cm. . No wedge. Proximal and distal sites locked on sheath. Attempts x1. Sterile drapes removed and dressings applied.
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
[2024-06-23 09:02] LABS: ABG Base Excess 0.3 mmol/L; ABG Glucose Whole Blood 98 mg/dL (75-99); ABG HCO3 26 mmol/L (21-25); ABG Hematocrit 39 % (34.0-46.0); ABG Ionized Calcium 4.5 mg/dL (4.5-5.3); ABG Lactic Acid Whole Blood 0.8 mmol/L (0.5-1.6); ABG Oxygen Saturation 97.8 % (94-97); ABG PCO2 43 mmHg (35-45); ABG PH 7.38 (7.35-7.45); ABG PO2 111 mmHg (83-108); ABG Potassium Whole Blood 3.7 mmol/L (3.4-4.5); ABG Sodium Whole Blood 138 mmol/L (135-146); ABG TCO2 23 mmol/L (19-24); Allen Test Performed? Yes
[2024-06-23] MEDS: ALBUMIN HUMAN 5% 500 ML in EMPTY BAG 1 BAG IVPB ONE ×5 (09:04→15:43)
[2024-06-23] MEDS: ALBUMIN HUMAN 25% 50 ML in EMPTY BAG 1 BAG IVPB ONE (09:04)
[2024-06-23] MEDS: ceFAZolin 1,000 MG in SODIUM CHLORIDE 0.9% IRRIGATIO 1,000 ML IRRIGATION ONE (09:06)
[2024-06-23] MEDS: ASPIRIN 325 MG TAB PO ONE (09:06)
[2024-06-23] MEDS: CALCIUM CHLORIDE 100 MG/ML 10 ML SYRINGE IVP ONE (09:06)
[2024-06-23] MEDS: ATORVASTATIN 10 MG TAB PO ONE (09:06)
[2024-06-23] MEDS: DILTIAZEM 125 MG in SODIUM CHLORIDE 0.9% 100 ML IV SCH (09:35)
[2024-06-23] MEDS: SODIUM CHLORIDE 0.9% 500 ML 500 ML with HEPARIN SODIUM,PORCINE (1 ML) 5,000 UNIT IV ONE (09:36)
[2024-06-23] MEDS: PAPAVERINE 360 MG in SODIUM CHLORIDE 0.9% 90 ML IV ONE (09:36)
[2024-06-23] MEDS: ceFAZolin 1,000 MG in SODIUM CHLORIDE 0.9% 1,000 ML IRRIGATION ONE (09:36)
--- NOTE | 2024-06-23 09:49 | P.ANPRN ---
Procedure Note - Anesthesia - SRIDEVI Intraop Pre Bypass SRIDEVI Intraop - Anesthesia Indication: Coronary artery disease, CABG Date of Procedure: 06/23/24 Pre-operative Diagnosis: Coronary artery disease Post-operative Diagnosis: Same Surgeon: Gibson Christina Left Ventricle: Within normal limits Ejection Fraction: Normal Regional Wall Motion Abnormalities: None Left Ventricle Hypertrophy: No Right Ventricle: Mild hypokinesia R. Ventricle Function: Hypokinesis Mild Anatomy: Trileaflet Aortic Stenosis: None Aortic Regurgitation: None Mitral Stenosis: None Mitral Regurgitation: Trace Tricuspid Stenosis: None Tricuspid Regurgitation: None Pulmonic Stenosis: None Pulmonic Regurgitation: None R. Atrial Dilation: No R. Atrial PFO: No L. Atrial Dilation: No Aortic Dissection: No Aortic Calcification: None Plural Effusion: None
[2024-06-23 10:27] LABS: ABG Base Excess -0.8 mmol/L; ABG Glucose Whole Blood 108 mg/dL (75-99); ABG HCO3 26 mmol/L (21-25); ABG Hematocrit 38 % (34.0-46.0); ABG Ionized Calcium 4.6 mg/dL (4.5-5.3); ABG Lactic Acid Whole Blood 0.5 mmol/L (0.5-1.6); ABG PCO2 48 mmHg (35-45); ABG PH 7.33 (7.35-7.45); ABG PO2 199 mmHg (83-108); ABG Potassium Whole Blood 3.9 mmol/L (3.4-4.5); ABG Sodium Whole Blood 139 mmol/L (135-146); ABG TCO2 24 mmol/L (19-24); Allen Test Performed? Yes
[2024-06-23 11:20] LABS: ABG Glucose Whole Blood 109 mg/dL (75-99); ABG HCO3 24 mmol/L (21-25); ABG Hematocrit 36 % (34.0-46.0); ABG Ionized Calcium 4.4 mg/dL (4.5-5.3); ABG Lactic Acid Whole Blood 0.6 mmol/L (0.5-1.6); ABG Oxygen Saturation 99.1 % (94-97); ABG PCO2 39 mmHg (35-45); ABG PH 7.39 (7.35-7.45); ABG PO2 211 mmHg (83-108); ABG Potassium Whole Blood 3.7 mmol/L (3.4-4.5); ABG Sodium Whole Blood 139 mmol/L (135-146); ABG TCO2 22 mmol/L (19-24); Allen Test Performed? Yes
[2024-06-23 12:21] LABS: ABG Base Excess -1.2 mmol/L; ABG Glucose Whole Blood 107 mg/dL (75-99); ABG HCO3 24 mmol/L (21-25); ABG Hematocrit 34 % (34.0-46.0); ABG Ionized Calcium 4.3 mg/dL (4.5-5.3); ABG Lactic Acid Whole Blood 0.8 mmol/L (0.5-1.6); ABG Oxygen Saturation 98.8 % (94-97); ABG PCO2 41 mmHg (35-45); ABG PH 7.38 (7.35-7.45); ABG PO2 178 mmHg (83-108); ABG Potassium Whole Blood 4.2 mmol/L (3.4-4.5); ABG Sodium Whole Blood 138 mmol/L (135-146); ABG TCO2 22 mmol/L (19-24); Allen Test Performed? Yes
[2024-06-23] MEDS ORDERED: IPRATROPIUM-ALBUTEROL 3 ML NEB INHALATION PRN (13:22)
[2024-06-23] MEDS ORDERED: Phosphorus Replacement Protoco 1 EACH MISC MISCELLANE PRN (13:22)
[2024-06-23] MEDS ORDERED: CALCIUM GLUCONATE IN NACL 2 GM in SALINE 1 100ML.BAG IVPB PRN (13:22)
[2024-06-23] MEDS ORDERED: DILTIAZEM 125 MG in SODIUM CHLORIDE 0.9% 100 ML IV SCH (13:22)
[2024-06-23] MEDS ORDERED: LACTATED RINGERS 1,000 ML IV SCH (13:22)
[2024-06-23] MEDS ORDERED: hydrALAZINE HCL 20 MG/ML 1 ML VIAL IVP PRN (13:22)
[2024-06-23] MEDS ORDERED: AMIODARONE 450 MG in DEXTROSE 5% IN WATER 250 ML IV PRN (13:22)
[2024-06-23] MEDS ORDERED: Potassium Replacement Protocol 1 EACH MISC MISCELLANE PRN (13:22)
[2024-06-23] MEDS ORDERED: METOCLOPRAMIDE 5 MG/ML 2 ML VIAL IVP PRN (13:22)
[2024-06-23] MEDS ORDERED: DEXTROSE 50% SYRINGE 50 ML IVP PRN ×2 (13:22)
[2024-06-23] MEDS ORDERED: Magnesium Replacement Protocol 1 EACH MISC MISCELLANE PRN (13:22)
[2024-06-23] MEDS ORDERED: DEXTROSE 5% IN WATER 100 ML with AMIODARONE 150 MG IV PRN (13:22)
[2024-06-23] MEDS ORDERED: DEXMEDETOMIDINE/0.9% NACL(PMX) 400 MCG in EMPTY BAG 1 BAG IV SCH (13:22)
[2024-06-23] MEDS ORDERED: AMIODARONE 360 MG in DEXTROSE 5% IN WATER 200 ML IV PRN (13:22)
[2024-06-23 13:37] LABS: Glucose,Whole Blood 106 mg/dL (70-110)
--- NOTE | 2024-06-23 13:38 | P.OP ---
Date of Procedure: 06/23/24 Preoperative Diagnosis: Acute inferior and right ventricular infarct, triple-vessel coronary artery disease, ventricular tachycardia Postoperative Diagnosis: Same Procedure(s) Performed: Off-pump CABG x 3 with HILLS to LAD, left radial artery to intermediate, saphenous vein graft to posterior descending coronary artery with endovascular harvest of the saphenous vein from the right thigh and entire left lower extremity, endovascular harvest of the left radial artery, occlusion of the left atrial appendage with a 35 mm AtriCure clip. Removal of transfemoral venous temporary pacemaker and venous sheath. Implants: 35 mm AtriCure clip Anesthesia: FER Surgeon: Gibson Christina Mainframe Architect #1: Wyatt Dick Mainframe Architect #2: Malcom Costello Estimated Blood Loss (ml): 500 IV fluids (ml): 2,500 Urine output (ml): 100 Pathology: none sent Condition: critical Disposition: PACU Indications for Procedure: 68-year-old male presented [address] elevation inferior wall WA. He was having multiple arrhythmias. He was taken emergently to the cardiac catheterization laboratory. He had 2 episodes of ventricular tachycardia requiring shock. Cardiac catheterization demonstrated severe three-vessel coronary artery disease with left main and LAD stenoses, stenosis of a large intermediate coronary artery, stenosis of a small circumflex coronary artery, subtotal occlusion of the right coronary artery proximally. Right femoral TVP was placed for arrhythmias and the patient was ventricularly paced. Intra- aortic balloon pump was placed and the patient was stabilized and sent to the ICU. Surgery was consulted. Saw the patient immediately upon his arrival in the ICU from [facility]. We continue to follow him over the next several days. Initial echocardiogram did not note significant RV dysfunction and the following morning a right-sided EKG did show right-sided Q waves. Despite this, the patient improved hemodynamically over the next 48 hours. We were able to discontinue pacing and he was in sinus bradycardia. We obtained appropriate preoperative testing and scheduled him for the operating room. Operative Findings: SRIDEVI demonstrated good recovery of RV function although it was still not normal. There is no significant valvular disease noted. The LV was normal. Left internal mammary artery was a good conduit. Left greater saphenous vein from the left lower extremity was somewhat small and had some varicosities. We also remove the saphenous vein from the right thigh but it was much more varicose. Left radial artery was harvested and was a good conduit. On exploring the coronary arteries, the left anterior descending was not visible on the anterior surface of the heart. There were 2 small diagonal branches the first being larger than the second. There was a good PDA target, the distal right coronary artery was heavily calcified. There were 2 small acute marginal branches, the second being larger than the first. The second was explored and felt to be too small for coronary bypass. Intermediate coronary artery had 2 branches. The first branch was a large good vessel. The second branch was small and appeared to peter out fairly quickly. Distal circumflex coronary artery did emerge from the AV groove on the obtuse margin but was very small. Description of Procedure: Patient was brought to the operating room and placed supine on the table. Rocky- Nate catheter and arterial line have been placed in the ICU preoperatively. Patient was appropriately positioned on the table in the ability to potentially perform fluoroscopy if Impella support was required. Transvenous pacer was removed. Anterior torso and bilateral lower extremities and left upper extremity were sterilely prepped and draped. SRIDEVI probe was placed with findings as noted above. Saphenous veins were harvested from bilateral lower extremities as noted above. The left radial artery was also harvested. While the saphenous vein and radial harvest were performed endoscopically. The conduits were as noted above. Simultaneous sternotomy was performed and the left hemisternum was retracted upwards. Left internal mammary artery was harvested on a vascularized pedicle and left intact on its origin from the subclavian. Left pleural space was drained with a 32 Grenadian chest tube. Standard sternal retractor was placed and the pericardium was opened in the midline. The heart was exposed with pericardial sutures. Coronaries were explored with findings as noted above. Was decided to put the HILLS to the LAD, vein graft to the PDA and radial artery graft to the intermediate. The HILLS was tunneled into the pericardium from the pleural space. We began with dissection along the first diagonal coronary artery trying to follow it back to the left anterior descending coronary artery it became heavily diseased and calcified and dove deeply and was really not possible to expose the LAD here. We then began dissection in the mid LAD area dissecting down through a thick epicardial fat pad in the vicinity of a vein that appeared to run over the AV groove. Dissecting on both sides of the vein we did not encounter and artery until we began dissecting down into the muscle on either side. We eventually did encounter the left anterior descending coronary artery. It was a 2+ millimeter vessel of excellent quality. The overlying fat and vein were partially resected in order to achieve adequate exposure. Area was stabilized with suction stabilization. The patient was systemically heparinized and ACT is maintained greater than 250 during grafting. End of the HILLS was prepared appropriately. The LAD was opened and blood flow controlled with a 2 mm flow-through. End-to-side anastomosis between the HILLS and the LAD was performed with running 8-0 Prolene suture. On completion the anastomosis flow through was removed effective probing the proximal distal port ion of the anastomosis. Suture was tied with good result and hemostasis and the inflow was opened. Riggins filled well with good hemostasis of the anastomosis. MARGIE pedicle was tacked surrounding epicardium with 6-0 silk sutures. Next the proximal PDA was stabilized. It was opened longitudinally. It was a 1.75 mm vessel. Blood flow was controlled with a 1.5 mm flow-through. The best piece of saphenous vein from the left lower extremity was used for the graft. It was anastomosed in end-to-side fashion with running 7-0 Prolene suture. On completion anastomosis the flow through was removed 50 probing the proximal distal portion anastomosis. Suture was tied with good result and hemostasis. The vein filled well to the first valve. The vein was of good quality but thin and relatively small. Was cut to appropriate length to reach the ascending aorta. Heartstring device was deployed in the proximal ascending aorta in the midline and the proximal anastomosis constructed with 5-0 Prolene suture. On completion of proximal anastomosis the heartstring device was removed and the suture was tied with good result and hemostasis. The riggins filled well. Vein graft was de-aired with needle holes and the inflow open. The graft was noted to lay well. The distal anastomosis was hemostatic. The lateral wall of the heart was exposed. 35 mm AtriCure clip was placed at the base of the left atrial appendage. Next we explored the lateral wall of the heart. The circumflex coronary artery was not felt to be a graftable target but it was too small by the time it exited the AV groove. The intermediate had 2 branches. The first branch was a large branch. It approaches 2 mm in diameter. The second branch was smaller and petered out fairly quickly. Was decided to just graft the first branch of the intermediate. It was stabilized and opened and blood flow controlled with a 1.5 mm flow-through. Radial artery was anastomosed in end-to-side fashion with running 7-0 Prolene suture. On completion anastomosis the flow through was removed effective probing the proximal distal portion anastomosis. Suture was tied with good result and hemostasis. Good backbleeding was noted into the radial artery controlled with a bulldog clamp. Heart was lowered in anatomic position and the radial brought beneath the HILLS to the ascending aorta. It was cut to appropriate length. Second heartstring device was deployed in the mid ascending aorta to the left of midline in the proximal anastomosis constructed with running 5-0 Prolene suture. On completion of the proximal anastomosis it was de-aired by backbleeding from the radial artery. Heartstring device was removed and the suture was tied with good result and hemostasis. Graft lay well with good length and all anastomoses were hemostatic. Heparin was reversed with protamine. Excellent hemostasis was obtained throughout and the mediastinum was drained with a 36 Grenadian chest tube. Mediastinum was irrigated with antibiotic solution and the sternum closed with 8 sternal wires. Fascia was closed with 0 Ethibond subcutaneous and subcuticular layers and the leg chest and arm were closed with layers of Vicryl suture. Dry sterile dressings were applied. Venous sheath in the right groin was removed and controlled with direct pressure. Patient was transferred to ICU in stable condition. No inotropic support and no blood products were required.
[2024-06-23] MEDS: IPRATROPIUM-ALBUTEROL 3 ML NEB INHALATION SCH ×2 (13:42→19:52)
[2024-06-23 13:46] LABS: Basophils % (A) 0 %; Eosinophils # (A) 0.1 k/uL (0-0.7); Eosinophils % (A) 1 %; HCT 31.2 % (39.0-53.0); Lymphocytes # (A) 1.3 k/uL (1.0-4.8); Lymphocytes % (A) 15 %; MCH 31.2 pg (25.0-35.0); MCHC 34.2 g/dL (31.0-37.0); MCV 91.3 fL (80.0-100.0); Mean Platelet Volume 9.5; Monocytes # (A) 0.3 k/uL (0-1.0); Monocytes % (A) 3 %; Neutrophils # (A) 6.9 k/uL (1.3-7.7); Neutrophils % (A) 80 %; Platelet Count 157 k/uL (150-450); RBC 3.42 m/uL (4.30-5.90); RDW 13.9 % (11.5-15.5); WBC 8.6 k/uL (3.8-10.6)
[2024-06-23 13:54] LABS: HGB 10.7 gm/dL (13.0-17.5)
[2024-06-23 14:01] LABS: INR 1.2 (<1.2); Partial Thromboplastin Time 28.3 sec (22.0-30.0); Prothrombin Time 12.5 sec (10.0-12.5)
[2024-06-23 14:07] LABS: Ionized Calcium 4.9 mg/dL (4.5-5.3)
--- NOTE | 2024-06-23 14:15 | P.ANPRN ---
Procedure Note - Anesthesia - SRIDEVI Intraop Post Bypass SRIDEVI Intraop Post Bypass Procedure Performed: CABG off pump Left Ventricle: unchanged Ejection Fraction: Normal Regional Wall Motion Abnormalities: None R. Ventricle Function: Hypokinesis Mild (unchanged) Aortic Valve: Unchanged Mitral Valve: Unchanged Tricuspid: Unchanged Pulmonic: Unchanged Aortic Dissection: No
[2024-06-23 14:18] LABS: ALT 14 U/L (4-49); AST 29 U/L (17-59); African American GFR (CKD) >90 (>60 ml/min/1.73 sqM); Albumin 3.6 g/dL (3.5-5.0); Alkaline Phosphatase 43 U/L (38-126); Anion Gap 4 mmol/L; Blood Urea Nitrogen 14 mg/dL (9-20); Calcium 8.7 mg/dL (8.4-10.2); Carbon Dioxide 21 mmol/L (22-30); Chloride 112 mmol/L (98-107); Glucose 100 mg/dL (74-99); Magnesium 2.3 mg/dL (1.6-2.3); Non-African American GFR(CKD) >90 (>60 ml/min/1.73 sqM); Potassium 3.7 mmol/L (3.5-5.1); Sodium 137 mmol/L (137-145); Total Bilirubin 0.7 mg/dL (0.2-1.3); Total Protein 5.2 g/dL (6.3-8.2)
[2024-06-23 14:18] LABS: ABG Base Excess -2.5 mmol/L; ABG HCO3 23 mmol/L (21-25); ABG PCO2 41 mmHg (35-45); ABG PH 7.35 (7.35-7.45); ABG TCO2 24 mmol/L (19-24)
[2024-06-23 14:19] LABS: ABG PO2 >420 mmHg (83-108)
[2024-06-23] MEDS: ALBUMIN HUMAN 5% 250 ML in EMPTY BAG 1 BAG IVPB PRN (14:19)
[2024-06-23] MEDS: NITROGLYCERIN-D5W PMX 50 MG in DEXTROSE/WATER 1 250ML.BAG IV SCH (14:22)
--- NOTE | 2024-06-23 14:28 | XR ---
EXAMINATION TYPE: XR chest 1V portable DATE OF EXAM: 06/23/2024 COMPARISON: 06/23/2024 HISTORY: Postop cardiac surgery TECHNIQUE: Single frontal view of the chest is obtained. FINDINGS: ET tube is 4.3 cm above the kandi. NG tube in stomach. [place]-Nate catheter projects towards the right pulmonary artery. Central venous catheter tip in the SVC/RA junction. There is a left chest tube. There is less pulmonary vascular congestion on the prior study. There is an opacity obscuring the lef t lung base consistent with small effusion and probable atelectasis. There is crowding of the right l ower lobe vasculature likely indicating atelectasis. There is no pneumothorax The osseous structures are intact IMPRESSION: 1. Small Bibasilar effusions and mild atelectasis 2. ET tube 4.3 cm. NG tube, Greene-Nate catheter, central line and left chest tube as described above. [facility], , 06/23/2024 2:26 PM
[2024-06-23 14:32] LABS: Glucose,Whole Blood 108 mg/dL (70-110)
[2024-06-23] MEDS: POTASSIUM CHLORIDE 10 MEQ in WATER FOR INJECTION 1 100ML.BAG IVPB SCH (15:35)
[2024-06-23] MEDS: SODIUM CHLORIDE 0.9% 1,000 ML IV SCH (15:37)
[2024-06-23] MEDS: HEPARIN SODIUM,PORCINE (1 ML) 5,000 UNIT in SODIUM CHLORIDE 0.9% 500 ML 500 ML IV ONE (15:41)
[2024-06-23] MEDS: CHLORHEXIDINE GLUCONATE 15 ML CUP MUCOUS MEM ONE (15:57)
[2024-06-23] MEDS: HEPARIN SODIUM 1,000 UN/ML (10ML VL) IV ONE (15:57)
[2024-06-23] MEDS: ACETAMINOPHEN IV (For NPO) 1,000 MG in EMPTY BAG 1 BAG IVPB SCH (16:05)
[2024-06-23 16:06] LABS: Glucose,Whole Blood 117 mg/dL (70-110)
[2024-06-23] MEDS: HEPARIN SODIUM,PORCINE 5,000 UNIT/ML 1 ML VIAL SQ SCH (16:07)
--- NOTE | 2024-06-23 16:24 | P.PN ---
Progress Note - Text Progress Note Date: 06/23/24 Removal of IABP: The right groin was examined. There was no evidence of hematoma. The balloon pump was turned off. The pre-existing sheath and balloon were removed en sofie and the artery was allowed to bleed both antegrade and retrograde for several beats. Direct pressure was held over the site for 30 minutes. There is no residual bleeding or hematoma noted. A FemoStop was placed. The groin itself was soft. The right lower extremity appears warm and well-perfused with good palpable pulses. There is no immediate complications. He remained hemodynamically stable with a good follow-up cardiac output of 6.0 and cardiac index 2.7. The balloon pump was removed at 3:35 PM.
[2024-06-23] MEDS: AMIODARONE 360 MG in DEXTROSE 5% IN WATER 200 ML IV ONE (16:25)
[2024-06-23 17:09] LABS: Glucose,Whole Blood 121 mg/dL (70-110)
[2024-06-23] MEDS: INSULIN REGULAR 100 UNIT in SODIUM CHLORIDE 0.9% 100 ML IV SCH (17:19)
[2024-06-23 17:21] LABS: Basophils % (A) 0 %; Eosinophils # (A) 0.1 k/uL (0-0.7); Eosinophils % (A) 1 %; HCT 32.2 % (39.0-53.0); HGB 10.6 gm/dL (13.0-17.5); Lymphocytes # (A) 0.9 k/uL (1.0-4.8); Lymphocytes % (A) 10 %; MCH 30.3 pg (25.0-35.0); MCHC 32.8 g/dL (31.0-37.0); MCV 92.4 fL (80.0-100.0); Mean Platelet Volume 8.9; Monocytes # (A) 0.5 k/uL (0-1.0); Monocytes % (A) 6 %; Neutrophils # (A) 7.1 k/uL (1.3-7.7); Neutrophils % (A) 82 %; Platelet Count 183 k/uL (150-450); RBC 3.49 m/uL (4.30-5.90); RDW 13.5 % (11.5-15.5); WBC 8.6 k/uL (3.8-10.6)
[2024-06-23 18:14] LABS: Glucose,Whole Blood 136 mg/dL (70-110)
[2024-06-23 18:16] LABS: ABG Base Excess -2.4 mmol/L; ABG HCO3 22 mmol/L (21-25); ABG Oxygen Saturation 99.6 % (94-97); ABG PCO2 35 mmHg (35-45); ABG PO2 147 mmHg (83-108); ABG TCO2 23 mmol/L (19-24)
--- NOTE | 2024-06-23 18:32 | P.PN ---
Subjective Progress Note Date: 06/23/24 History of present illness; Justin Guerra is a 68-year-old male with past medical history of dermatomyos itis, and hypothyroidism who presented with substernal chest pain. He states he had some feelings of heartburn and indigestion last night. Today he had substernal chest pressure while driving, had a loss of consciousness and woke up on the ground. He also had associated diaphoresis and shortness of breath. He was seen in emergency room by Dr. Seaman and sent urgently to [facility]. During catheterization he did defibrillate and was shocked twice, and went to third- degree heart block and a transvenous pacemaker was placed. Heart catheterization noted distal left main disease 90% with TIMI3 flow, 80 to 90% proximal LAD as well as 90% RCA disease with TIMI3 flow. Intra-aortic balloon pump was placed and patient was transported to intensive care unit. Initial lab work done in the ER showed WBC 12.1, hemoglobin 15.2, platelets 410, coagulation studies WNL, sodium 137, potassium 4.3, chloride 108, glucose 133, troponin 0.021, proBNP 178, pending lipid panel, TSH 33.8, free T4 1.32. ECG shows complete heart block, heart rate 48 beats minute with A-V dissociation, ST elevations in inferior lead along with rest elevations in anteroseptal leads along with lateral obstruction. Bedside echocardiogram showed an EF of 50 to 55%, inferior wall hypokinesia, RV dilatation with high RV hypokinesia Chest x-ray done independently interpreted in the ER showed cardiomegaly without acute process Patient admitted to internal medicine service for treatment of CAD and STEMI. Progress note 06/23/2024 patient seen and examined at bedside. No events overnight. Patient underwent CABG X3 and balloon pump removal with no immediate complications. He is hemodynamically stable. He remains in the ICU. REVIEW OF SYSTEMS: All Systems reviewed, pertinent positives and negatives noted in HPI. All other symptoms are negative. The rest of the 14-point review of systems is negative. PHYSICAL EXAMINATION: Vitals reviewed GENERAL: Sedated on exam, no acute distress. Well developed, well nourished. HEENT: Pupils are round and equally reacting to light. EOMI. No scleral icterus. No conjunctival pallor. Normocephalic, atraumatic. No pharyngeal erythema. No thyromegaly. CARDIOVASCULAR: S1 and S2 present. PULMONARY: Chest is clear to auscultation, no wheezing or crackles. ABDOMEN: Soft, nontender, nondistended, normoactive bowel sounds. No palpable organomegaly. MUSCULOSKELETAL: No apparent joint swelling and deformities. EXTREMITIES: No apparent cyanosis, clubbing, or pedal edema. NEUROLOGICAL: Gross neurological examination did not reveal any focal deficits. SKIN: Dermatomyositis rashes apparent on face and extremities Labs reviewed today WBC 8.6, hemoglobin 10.6, platelets 183, INR 1.2, ABG pH 7.4, pCO2 35, pO2 147, on FiO2 of 40, sodium 137, potassium 3.7, chloride 112, bicarb 21, anion gap 4, BUN 14, creatinine 0.70, glucose 100 Imaging reviewed chest x-ray independently interpreted findings of basilar patchy atelectasis and small effusions consistent with surgery. Assessment and plan Justin Guerra is a 68-year-old male with past medical history of dermatomyositis, and hypothyroidism who being treated for CAD with inferior STEMI. # STEMI S/P intra-aortic balloon placement and removal #Multivessel CAD #V-fib s/p defibrillation Complete heart block #Status post CABG X3 -echocardiogram showed an EF of 50 to 55 Continue aspirin 325 mg daily, Coreg 6.25 twice daily -Continue Lipitor 40 mg daily S/p intra-aortic balloon placement, and removal Pain management per CT surgery, senna at bedtime Continue to wean sedation, currently on propofol -On Amio drip Continue IV NS at 50 mL/h S/P CABG X3, no immediate complications, operative note reviewed Cardiothoracic surgery note reviewed, management as above -Cardiology following - ICU note reviewed, continue management as above # Subclinical hypothyroidism -TSH 33.8, free T4 1.32. -Continue Synthroid 250 mcg daily, increased by CT surgery Dermatomyositis -Holding CellCept Hyperglycemia -On insulin drip, monitor blood sugars closely -Will continue insulin drip till patient is able to tolerate oral intake F: IV NS at 50 mL/h E: Replete as needed N: As tolerated E: None DVT ppx: Heparin Code status: Full code Patient is critically ill, in medical ICU. Anticipated discharge place: Pending clinical course Anticipated discharge time: Pending clinical course Monitor vital signs, CBC, CMP Continue telemetry monitoring Continue with symptomatic treatment. Further recommendations as per clinical course of the patient Dictation was produced using [employer] dictation software. Please excuse any grammatical, word or spelling errors. I have seen and evaluated the patient today. Discussed with the resident and agree with the residents finding and plan as documented in the resident's note. Changes highlighted in blue font. Objective - Vital Signs Vital signs: Vital Signs Temp 97.2 F L 06/23/24 18:00 Pulse 68 06/23/24 18:00 Resp 14 06/23/24 18:00 BP 141/93 06/23/24 08:00 Pulse Ox 100 06/23/24 18:00 FiO2 40 06/23/24 18:00 Intake & Output 06/22/24 06/23/24 06/23/24 18:59 06:59 18:59 Intake Total 686.5 803.222 820.371 Output Total 2500 1755 1525 Balance -1813.5 -951.778 -704.629 Weight 109.2 kg Intake: IV 532 432 323 0.9 @ KVO 120 120 110 CO/CI 100 Magnesium Sulfate-D5w Pmx 100 1 gm In Dextrose/Water 1 100ml.bag @ 100 mls/hr IVPB ONCE ONE Rx#: [id number] pressure bags 72 72 39 tvp 240 240 20 Intake, IV Titration 154.5 371.222 497.371 Amount Albumin Human 5% 250 ml 250 In Empty Bag 1 bag @ 250 mls/hr IVPB Q1HR PRN Rx#: [id number] Heparin Sod,Pork in 0.45% 371.222 NaCl 25,000 unit In 0.45 % NaCl 1 250ml.bag @ 8.7 UNITS/KG/HR 10.005 mls/hr IV .Q24H GALO Rx#: [id number] Lactated Ringers 1,000 ml 50 @ 50 mls/hr IV .Q20H GALO Rx#:[id number] Lidocaine-D5w Pmx 2G/ 154.5 250Ml 2,000 mg In Dextrose/Water 1 250ml. bag @ 1 MG/MIN 7.5 mls/hr IV .Q24H GALO Rx#: [id number] Nitroglycerin-D5w Pmx 50 7.5 mg In Dextrose/Water 1 250ml.bag @ 5 MCG/MIN 1.5 mls/hr IV .Q24H GALO Rx#: [id number] Sodium Chloride 0.9% 1, 100 000 ml @ 50 mls/hr IV . Q20H GALO Rx#:[id number] propofoL 1,000 mg In 89.871 Empty Bag 1 bag @ Titrate IV .Q0M GALO Rx#: [id number] Output: Chest Tube Drainage 265 Chest Tube Left 85 Chest Tube Mediastinal 180 Urine 2500 1755 1010 Estimated Blood Loss 250 Other: Voiding Method Indwelling Catheter Indwelling Catheter Indwelling Catheter ABP, PAP, CO, CI - Last Documented Arterial Blood Pressure 125/63 Pulmonary Artery Pressure 28/13 Cardiac Output 6.3 Cardiac Index 2.9 - Labs CBC & Chem 7: 06/23/24 17:07 06/23/24 13:36 Labs: Abnormal Lab Results - Last 24 Hours (Table) 06/22/24 06/23/24 06/23/24 Range/Units 04:30 05:19 08:40 RBC (4.30-5.90) m/uL Hgb (13.0-17.5) gm/dL Hct (39.0-53.0) % Lymphocytes # (1.0-4.8) k/uL INR (<1.2) ABG pH (7.35-7.45) ABG pCO2 (35-45) mmHg ABG pO2 111 H (83-108) mmHg ABG HCO3 26 H (21-25) mmol/L ABG O2 Saturation 97.8 H (94-97) % ABG Ionized Calcium (4.5-5.3) mg/dL ABG Glucose (75-99) mg/dL Hemoglobin 12.7 L (13.0-17.5) gm/dL Sodium 136 L (137-145) mmol/L Chloride 108 H (98-107) mmol/L Carbon Dioxide (22-30) mmol/L Glucose (74-99) mg/dL POC Glucose (mg/dL) (70-110) mg/dL Total Protein 5.9 L (6.3-8.2) g/dL Arterial Blood Glucose (75-99) mg/dL Crossmatch See Detail 06/23/24 06/23/24 06/23/24 Range/Units 10:32 11:25 12:27 RBC (4.30-5.90) m/uL Hgb (13.0-17.5) gm/dL Hct (39.0-53.0) % Lymphocytes # (1.0-4.8) k/uL INR (<1.2) ABG pH 7.33 L (7.35-7.45) ABG pCO2 48 H (35-45) mmHg ABG pO2 199 H 211 H 178 H (83-108) mmHg ABG HCO3 26 H (21-25) mmol/L ABG O2 Saturation 99.0 H 99.1 H 98.8 H (94-97) % ABG Ionized Calcium 4.4 L 4.3 L (4.5-5.3) mg/dL ABG Glucose 108 H 109 H 107 H (75-99) mg/dL Hemoglobin 12.4 L 11.6 L 11.0 L (13.0-17.5) gm/dL Sodium (137-145) mmol/L Chloride (98-107) mmol/L Carbon Dioxide (22-30) mmol/L Glucose (74-99) mg/dL POC Glucose (mg/dL) (70-110) mg/dL Total Protein (6.3-8.2) g/dL Arterial Blood Glucose 108 H 109 H 107 H (75-99) mg/dL Crossmatch 06/23/24 06/23/24 06/23/24 Range/Units 13:36 13:36 13:36 RBC 3.42 L (4.30-5.90) m/uL Hgb 10.7 L D (13.0-17.5) gm/dL Hct 31.2 L (39.0-53.0) % Lymphocytes # (1.0-4.8) k/uL INR 1.2 H (<1.2) ABG pH (7.35-7.45) ABG pCO2 (35-45) mmHg ABG pO2 (83-108) mmHg ABG HCO3 (21-25) mmol/L ABG O2 Saturation (94-97) % ABG Ionized Calcium (4.5-5.3) mg/dL ABG Glucose (75-99) mg/dL Hemoglobin (13.0-17.5) gm/dL Sodium (137-145) mmol/L Chloride 112 H (98-107) mmol/L Carbon Dioxide 21 L (22-30) mmol/L Glucose 100 H (74-99) mg/dL POC Glucose (mg/dL) (70-110) mg/dL Total Protein 5.2 L (6.3-8.2) g/dL Arterial Blood Glucose (75-99) mg/dL Crossmatch 06/23/24 06/23/24 06/23/24 Range/Units 14:16 16:04 17:06 RBC (4.30-5.90) m/uL Hgb (13.0-17.5) gm/dL Hct (39.0-53.0) % Lymphocytes # (1.0-4.8) k/uL INR (<1.2) ABG pH (7.35-7.45) ABG pCO2 (35-45) mmHg ABG pO2 >420 H (83-108) mmHg ABG HCO3 (21-25) mmol/L ABG O2 Saturation 100.0 H (94-97) % ABG Ionized Calcium (4.5-5.3) mg/dL ABG Glucose (75-99) mg/dL Hemoglobin 10.9 L (13.0-17.5) gm/dL Sodium (137-145) mmol/L Chloride (98-107) mmol/L Carbon Dioxide (22-30) mmol/L Glucose (74-99) mg/dL POC Glucose (mg/dL) 117 H 121 H (70-110) mg/dL Total Protein (6.3-8.2) g/dL Arterial Blood Glucose (75-99) mg/dL Crossmatch 06/23/24 06/23/24 Range/Units 17:07 18:12 RBC 3.49 L (4.30-5.90) m/uL Hgb 10.6 L (13.0-17.5) gm/dL Hct 32.2 L (39.0-53.0) % Lymphocytes # 0.9 L (1.0-4.8) k/uL INR (<1.2) ABG pH (7.35-7.45) ABG pCO2 (35-45) mmHg ABG pO2 (83-108) mmHg ABG HCO3 (21-25) mmol/L ABG O2 Saturation (94-97) % ABG Ionized Calcium (4.5-5.3) mg/dL ABG Glucose (75-99) mg/dL Hemoglobin (13.0-17.5) gm/dL Sodium (137-145) mmol/L Chloride (98-107) mmol/L Carbon Dioxide (22-30) mmol/L Glucose (74-99) mg/dL POC Glucose (mg/dL) 136 H (70-110) mg/dL Total Protein (6.3-8.2) g/dL Arterial Blood Glucose (75-99) mg/dL Crossmatch
[2024-06-23 19:09] LABS: Glucose,Whole Blood 137 mg/dL (70-110)
[2024-06-23] MEDS: CLEVIDIPINE BUTYRATE 25 MG in EMPTY BAG 1 BAG IV SCH (19:35)
[2024-06-23] MEDS: MUPIROCIN 2% OINT 22 GM TUBE NASAL SCH (19:47)
[2024-06-23 20:03] LABS: Glucose,Whole Blood 139 mg/dL (70-110)
[2024-06-23 20:12] LABS: Basophils % (A) 0 %; Eosinophils % (A) 0 %; HCT 33.3 % (39.0-53.0); HGB 10.8 gm/dL (13.0-17.5); Lymphocytes # (A) 0.6 k/uL (1.0-4.8); Lymphocytes % (A) 6 %; MCH 29.8 pg (25.0-35.0); MCHC 32.4 g/dL (31.0-37.0); MCV 91.7 fL (80.0-100.0); Mean Platelet Volume 9.2; Monocytes # (A) 0.5 k/uL (0-1.0); Monocytes % (A) 5 %; Neutrophils # (A) 8.6 k/uL (1.3-7.7); Neutrophils % (A) 87 %; Platelet Count 223 k/uL (150-450); RBC 3.64 m/uL (4.30-5.90); RDW 13.5 % (11.5-15.5); WBC 9.8 k/uL (3.8-10.6)
[2024-06-23 20:49] LABS: Glucose,Whole Blood 134 mg/dL (70-110)
[2024-06-23] MEDS: AMIODARONE 450 MG in DEXTROSE 5% IN WATER 250 ML IV SCH (21:52)
[2024-06-23 22:04] LABS: Glucose,Whole Blood 134 mg/dL (70-110)
[2024-06-23 22:51] LABS: Glucose,Whole Blood 148 mg/dL (70-110)
[2024-06-23 23:47] LABS: Glucose,Whole Blood 117 mg/dL (70-110)
[2024-06-24 01:08] LABS: Glucose,Whole Blood 113 mg/dL (70-110)
[2024-06-24 02:08] LABS: Glucose,Whole Blood 122 mg/dL (70-110)
[2024-06-24 03:07] LABS: Glucose,Whole Blood 120 mg/dL (70-110)
[2024-06-24 03:53] LABS: Basophils % (A) 0 %; Eosinophils % (A) 0 %; HCT 34.7 % (39.0-53.0); HGB 11.7 gm/dL (13.0-17.5); Lymphocytes % (A) 11 %; MCH 30.5 pg (25.0-35.0); MCHC 33.6 g/dL (31.0-37.0); MCV 90.8 fL (80.0-100.0); Mean Platelet Volume 8.6; Monocytes # (A) 0.5 k/uL (0-1.0); Monocytes % (A) 5 %; Neutrophils # (A) 7.8 k/uL (1.3-7.7); Neutrophils % (A) 83 %; Platelet Count 234 k/uL (150-450); RBC 3.82 m/uL (4.30-5.90); RDW 14.2 % (11.5-15.5); WBC 9.4 k/uL (3.8-10.6)
[2024-06-24 04:03] LABS: Glucose,Whole Blood 117 mg/dL (70-110)
[2024-06-24 04:08] LABS: Ionized Calcium 4.6 mg/dL (4.5-5.3)
[2024-06-24 04:47] LABS: ALT 14 U/L (4-49); AST 26 U/L (17-59); African American GFR (CKD) >90 (>60 ml/min/1.73 sqM); Albumin 3.7 g/dL (3.5-5.0); Alkaline Phosphatase 45 U/L (38-126); Anion Gap 5 mmol/L; Blood Urea Nitrogen 11 mg/dL (9-20); Calcium 8.4 mg/dL (8.4-10.2); Carbon Dioxide 21 mmol/L (22-30); Chloride 107 mmol/L (98-107); Glucose 116 mg/dL (74-99); Magnesium 1.9 mg/dL (1.6-2.3); Non-African American GFR(CKD) >90 (>60 ml/min/1.73 sqM); Potassium 4.2 mmol/L (3.5-5.1); Sodium 133 mmol/L (137-145); Total Bilirubin 1.2 mg/dL (0.2-1.3); Total Protein 5.4 g/dL (6.3-8.2)
[2024-06-24 05:23] LABS: Glucose,Whole Blood 106 mg/dL (70-110)
[2024-06-24] MEDS: ACETAMINOPHEN TAB 500 MG TAB PO PRN (05:33)
[2024-06-24] MEDS: carvediloL 6.25 MG TAB PO SCH (05:33)
[2024-06-24] MEDS ORDERED: Magnesium Replacement Protocol 1 EACH MISC MISCELLANE PRN (05:41)
[2024-06-24] MEDS: MAGNESIUM SULFATE-D5W PMX 1 GM in DEXTROSE/WATER 1 100ML.BAG IVPB ONE (05:57)
[2024-06-24 06:17] LABS: Glucose,Whole Blood 128 mg/dL (70-110)
--- NOTE | 2024-06-24 06:39 | XR ---
EXAMINATION TYPE: XR chest 1V portable DATE OF EXAM: 06/24/2024 COMPARISON: 06/23/2024 HISTORY: Postop cardiac surgery TECHNIQUE: Single frontal view of the chest is obtained. FINDINGS: There is been interval removal of ET tube. [place]-Nate catheter is unchanged in position. Th e left chest tube and mediastinal tube are stable in position. The retrocardiac opacity on the left likely a combination of pleural fluid and atelectasis is stable. The right lung is clear.. There is no pneumothorax. IMPRESSION: Stable postop acute cardiopulmonary process [facility], , 06/24/2024 6:37 AM
[2024-06-24 07:06] LABS: Glucose,Whole Blood 135 mg/dL (70-110)
[2024-06-24] MEDS: KETOROLAC 15 MG/ML 1 ML VIAL IVP SCH (07:57)
[2024-06-24] MEDS: PANTOPRAZOLE 40 MG/10 ML VIAL IVP SCH (08:01)
[2024-06-24] MEDS: ASPIRIN 325 MG TAB PO SCH (08:01)
[2024-06-24] MEDS: AMIODARONE 200 MG TAB PO SCH (08:01)
[2024-06-24] MEDS: CLOPIDOGREL 75 MG TAB PO SCH (08:01)
[2024-06-24] MEDS: ATORVASTATIN 40 MG TAB PO SCH (08:01)
[2024-06-24 08:19] LABS: Glucose,Whole Blood 123 mg/dL (70-110)
[2024-06-24] MEDS ORDERED: MAGNESIUM HYDROXIDE 2,400 MG/30 ML CUP PO PRN (09:00)
[2024-06-24 10:16] LABS: Glucose,Whole Blood 124 mg/dL (70-110)
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
[2024-06-24 11:18] VITALS: BMI 35.6
[2024-06-24 11:55] LABS: Glucose,Whole Blood 108 mg/dL (70-110)
--- NOTE | 2024-06-24 12:19 | P.PN ---
Subjective Progress Note Date: 06/24/24 History of present illness; Justin Guerra is a 68-year-old male with past medical history of dermatomyos itis, and hypothyroidism who presented with substernal chest pain. He states he had some feelings of heartburn and indigestion last night. Today he had substernal chest pressure while driving, had a loss of consciousness and woke up on the ground. He also had associated diaphoresis and shortness of breath. He was seen in emergency room by Dr. Seaman and sent urgently to [facility]. During catheterization he did defibrillate and was shocked twice, and went to third- degree heart block and a transvenous pacemaker was placed. Heart catheterization noted distal left main disease 90% with TIMI3 flow, 80 to 90% proximal LAD as well as 90% RCA disease with TIMI3 flow. Intra-aortic balloon pump was placed and patient was transported to intensive care unit. Initial lab work done in the ER showed WBC 12.1, hemoglobin 15.2, platelets 410, coagulation studies WNL, sodium 137, potassium 4.3, chloride 108, glucose 133, troponin 0.021, proBNP 178, pending lipid panel, TSH 33.8, free T4 1.32. ECG shows complete heart block, heart rate 48 beats minute with A-V dissociation, ST elevations in inferior lead along with rest elevations in anteroseptal leads along with lateral obstruction. Bedside echocardiogram showed an EF of 50 to 55%, inferior wall hypokinesia, RV dilatation with high RV hypokinesia Chest x-ray done independently interpreted in the ER showed cardiomegaly without acute process Patient admitted to internal medicine service for treatment of CAD and STEMI. Progress note 06/24/2024 No events overnight. patient seen and examined. Sitting up in chair. S/P day 1 of CABG X3 and balloon pump removal. He is hemodynamically stable. He remains in the ICU. REVIEW OF SYSTEMS: All Systems reviewed, pertinent positives and negatives noted in HPI. All other symptoms are negative. The rest of the 14-point review of systems is negative. PHYSICAL EXAMINATION: Vitals reviewed GENERAL: Alert, awake, no acute distress. Well developed, well nourished. M ultiple drains in place post-op. HEENT: Pupils are round and equally reacting to light. EOMI. No scleral icterus. No conjunctival pallor. Normocephalic, atraumatic. No pharyngeal erythema. No thyromegaly. CARDIOVASCULAR: S1 and S2 present. PULMONARY: Chest is clear to auscultation, no wheezing or crackles. ABDOMEN: Soft, nontender, nondistended, normoactive bowel sounds. No palpable organomegaly. MUSCULOSKELETAL: No apparent joint swelling and deformities. EXTREMITIES: No apparent cyanosis, clubbing, or pedal edema. NEUROLOGICAL: Gross neurological examination did not reveal any focal deficits. SKIN: Dermatomyositis rashes apparent on face and extremities Labs reviewed today WBC 9.4, hemoglobin 11.7, platelets 234, sodium 133, potassium 4.2, bicarb 21, BUN 11, creatinine 0.73, glucose 116 Imaging reviewed chest x-ray independently interpreted findings of basilar patchy atelectasis and small effusions consistent with surgery. Assessment and plan Justin Guerra is a 68-year-old male with past medical history of dermatomyositis, and hypothyroidism who being treated for CAD with inferior STEMI. # STEMI S/P intra-aortic balloon placement and removal #Multivessel CAD #V-fib s/p defibrillation Complete heart block #Status post CABG X3 -echocardiogram showed an EF of 50 to 55 Continue aspirin 325 mg daily, Coreg 6.25 twice daily -Continue Lipitor 40 mg daily S/p intra-aortic balloon placement, and removal Pain management per CT surgery, senna at bedtime Discontinued propofol - Amio drip on hold Continue IV NS at 30 mL/h S/P CABG X3, no immediate complications, operative note reviewed Cardiothoracic surgery note reviewed, management as above -Cardiology following - ICU note reviewed, continue management as above #Hyperglycemia -On insulin drip, monitor blood sugars closely -Will continue insulin drip till patient is able to tolerate oral intake # Subclinical hypothyroidism -TSH 33.8, free T4 1.32. -Continue Synthroid 250 mcg daily, increased by CT surgery Dermatomyositis -Holding CellCept F: IV NS at 30 mL/h E: Replete as needed N: As tolerated E: None DVT ppx: Heparin Code status: Full code Patient is critically ill, in medical ICU. Anticipated discharge place: Pending clinical course Anticipated discharge time: Pending clinical course Monitor vital signs, CBC, CMP Continue telemetry monitoring Continue with symptomatic treatment. Further recommendations as per clinical course of the patient Dictation was produced using [employer] dictation software. Please excuse any grammatical, word or spelling errors. I have seen and evaluated the patient today. Discussed with the resident and agree with the residents finding and plan as documented in the resident's note. Changes highlighted in blue font. Objective - Vital Signs Vital signs: Vital Signs Temp 98.9 F 06/24/24 12:00 Pulse 66 06/24/24 12:00 Resp 22 06/24/24 12:00 BP 85/57 06/24/24 11:00 Pulse Ox 98 06/24/24 12:00 FiO2 40 06/23/24 18:15 Intake & Output 06/23/24 06/24/24 06/24/24 18:59 06:59 18:59 Intake Total 869.683 9716.701 1127.991 Output Total 1525 1585 295 Balance -697.806 -24.299 832.991 Weight 106.5 kg 106.5 kg Intake: IV 323 1338 382 0.9 @ KVO 110 Albumin Human 5% 250 ml 500 In Empty Bag 1 bag @ 250 mls/hr IVPB Q1HR PRN Rx#: [id number] CO/CI 100 80 40 Magnesium Sulfate-D5w Pmx 100 1 gm In Dextrose/Water 1 100ml.bag @ 100 mls/hr IVPB ONCE ONE Rx#: [id number] Sodium Chloride 0.9% 1, 550 300 000 ml @ 30 mls/hr IV . Q24H [facility] Rx#:[id number] pressure bags 39 108 42 tvp 20 Intake, IV Titration 504.194 72.701 695.991 Amount Albumin Human 5% 250 ml 250 In Empty Bag 1 bag @ 250 mls/hr IVPB Q1HR PRN Rx#: [id number] Albumin Human 5% 500 ml 500 In Empty Bag 1 bag @ 250 mls/hr IVPB ONCE ONE Rx#: [id number] Amiodarone 450 mg In 193.893 Dextrose 5% in Water 250 ml @ 0.5 MG/MIN 16.667 mls/hr IV .Q15H [facility] Rx#: [id number] Clevidipine Butyrate 25 12.499 mg In Empty Bag 1 bag @ 1 MG/HR 2 mls/hr IV .Q24H [facility] Rx#:[id number] Insulin Regular 100 unit 0.926 8.702 0.598 In Sodium Chloride 0.9% 100 ml @ Per Protocol IV .Q0M [facility] Rx#:[id number] Lactated Ringers 1,000 ml 50 @ 50 mls/hr IV .Q20H [facility] Rx#:[id number] Nitroglycerin-D5w Pmx 50 7.5 1.5 1.5 mg In Dextrose/Water 1 250ml.bag @ 5 MCG/MIN 1.5 mls/hr IV .Q24H [facility] Rx#: [id number] Sodium Chloride 0.9% 1, 100 50 000 ml @ 30 mls/hr IV . Q24H [facility] Rx#:[id number] propofoL 1,000 mg In 95.768 Empty Bag 1 bag @ Titrate IV .Q0M [facility] Rx#: [id number] Oral 150 50 Output: Chest Tube Drainage 265 575 150 Chest Tube Left 85 255 80 Chest Tube Mediastinal 180 320 70 Drainage 30 Left Arm 30 Urine 1010 980 145 Estimated Blood Loss 250 Other: Voiding Method Indwelling Catheter Indwelling Catheter Indwelling Catheter ABP, PAP, CO, CI - Last Documented Arterial Blood Pressure 111/51 Pulmonary Artery Pressure 23/8 Cardiac Output 5.1 Cardiac Index 2.3 - Labs CBC & Chem 7: 06/24/24 03:25 06/24/24 03:25 Labs: Abnormal Lab Results - Last 24 Hours (Table) 06/22/24 06/23/24 06/23/24 Range/Units 04:30 08:40 10:32 RBC (4.30-5.90) m/uL Hgb (13.0-17.5) gm/dL Hct (39.0-53.0) % Neutrophils # (1.3-7.7) k/uL Lymphocytes # (1.0-4.8) k/uL INR (<1.2) ABG pH 7.33 L (7.35-7.45) ABG pCO2 48 H (35-45) mmHg ABG pO2 111 H 199 H (83-108) mmHg ABG HCO3 26 H 26 H (21-25) mmol/L ABG O2 Saturation 97.8 H 99.0 H (94-97) % ABG Ionized Calcium (4.5-5.3) mg/dL ABG Glucose 108 H (75-99) mg/dL Hemoglobin 12.7 L 12.4 L (13.0-17.5) gm/dL Sodium (137-145) mmol/L Chloride (98-107) mmol/L Carbon Dioxide (22-30) mmol/L Glucose (74-99) mg/dL POC Glucose (mg/dL) (70-110) mg/dL Total Protein (6.3-8.2) g/dL Arterial Blood Glucose 108 H (75-99) mg/dL Crossmatch See Detail 06/23/24 06/23/24 06/23/24 Range/Units 11:25 12:27 13:36 RBC 3.42 L (4.30-5.90) m/uL Hgb 10.7 L D (13.0-17.5) gm/dL Hct 31.2 L (39.0-53.0) % Neutrophils # (1.3-7.7) k/uL Lymphocytes # (1.0-4.8) k/uL INR (<1.2) ABG pH (7.35-7.45) ABG pCO2 (35-45) mmHg ABG pO2 211 H 178 H (83-108) mmHg ABG HCO3 (21-25) mmol/L ABG O2 Saturation 99.1 H 98.8 H (94-97) % ABG Ionized Calcium 4.4 L 4.3 L (4.5-5.3) mg/dL ABG Glucose 109 H 107 H (75-99) mg/dL Hemoglobin 11.6 L 11.0 L (13.0-17.5) gm/dL Sodium (137-145) mmol/L Chloride (98-107) mmol/L Carbon Dioxide (22-30) mmol/L Glucose (74-99) mg/dL POC Glucose (mg/dL) (70-110) mg/dL Total Protein (6.3-8.2) g/dL Arterial Blood Glucose 109 H 107 H (75-99) mg/dL Crossmatch 06/23/24 06/23/24 06/23/24 Range/Units 13:36 13:36 14:16 RBC (4.30-5.90) m/uL Hgb (13.0-17.5) gm/dL Hct (39.0-53.0) % Neutrophils # (1.3-7.7) k/uL Lymphocytes # (1.0-4.8) k/uL INR 1.2 H (<1.2) ABG pH (7.35-7.45) ABG pCO2 (35-45) mmHg ABG pO2 >420 H (83-108) mmHg ABG HCO3 (21-25) mmol/L ABG O2 Saturation 100.0 H (94-97) % ABG Ionized Calcium (4.5-5.3) mg/dL ABG Glucose (75-99) mg/dL Hemoglobin 10.9 L (13.0-17.5) gm/dL Sodium (137-145) mmol/L Chloride 112 H (98-107) mmol/L Carbon Dioxide 21 L (22-30) mmol/L Glucose 100 H (74-99) mg/dL POC Glucose (mg/dL) (70-110) mg/dL Total Protein 5.2 L (6.3-8.2) g/dL Arterial Blood Glucose (75-99) mg/dL Crossmatch 06/23/24 06/23/24 06/23/24 Range/Units 16:04 17:06 17:07 RBC 3.49 L (4.30-5.90) m/uL Hgb 10.6 L (13.0-17.5) gm/dL Hct 32.2 L (39.0-53.0) % Neutrophils # (1.3-7.7) k/uL Lymphocytes # 0.9 L (1.0-4.8) k/uL INR (<1.2) ABG pH (7.35-7.45) ABG pCO2 (35-45) mmHg ABG pO2 (83-108) mmHg ABG HCO3 (21-25) mmol/L ABG O2 Saturation (94-97) % ABG Ionized Calcium (4.5-5.3) mg/dL ABG Glucose (75-99) mg/dL Hemoglobin (13.0-17.5) gm/dL Sodium (137-145) mmol/L Chloride (98-107) mmol/L Carbon Dioxide (22-30) mmol/L Glucose (74-99) mg/dL POC Glucose (mg/dL) 117 H 121 H (70-110) mg/dL Total Protein (6.3-8.2) g/dL Arterial Blood Glucose (75-99) mg/dL Crossmatch 06/23/24 06/23/2406/23/24 Range/Units 18:10 18:12 19:08 RBC (4.30-5.90) m/uL Hgb (13.0-17.5) gm/dL Hct (39.0-53.0) % Neutrophils # (1.3-7.7) k/uL Lymphocytes # (1.0-4.8) k/uL INR (<1.2) ABG pH (7.35-7.45) ABG pCO2 (35-45) mmHg ABG pO2 147 H (83-108) mmHg ABG HCO3 (21-25) mmol/L ABG O2 Saturation 99.6 H (94-97) % ABG Ionized Calcium (4.5-5.3) mg/dL ABG Glucose (75-99) mg/dL Hemoglobin 10.6 L (13.0-17.5) gm/dL Sodium (137-145) mmol/L Chloride (98-107) mmol/L Carbon Dioxide (22-30) mmol/L Glucose (74-99) mg/dL POC Glucose (mg/dL) 136 H 137 H (70-110) mg/dL Total Protein (6.3-8.2) g/dL Arterial Blood Glucose (75-99) mg/dL Crossmatch 06/23/24 06/23/24 06/23/24 Range/Units 20:00 20:01 20:48 RBC 3.64 L (4.30-5.90) m/uL Hgb 10.8 L (13.0-17.5) gm/dL Hct 33.3 L (39.0-53.0) % Neutrophils # 8.6 H (1.3-7.7) k/uL Lymphocytes # 0.6 L (1.0-4.8) k/uL INR (<1.2) ABG pH (7.35-7.45) ABG pCO2 (35-45) mmHg ABG pO2 (83-108) mmHg ABG HCO3 (21-25) mmol/L ABG O2 Saturation (94-97) % ABG Ionized Calcium (4.5-5.3) mg/dL ABG Glucose (75-99) mg/dL Hemoglobin (13.0-17.5) gm/dL Sodium (137-145) mmol/L Chloride (98-107) mmol/L Carbon Dioxide (22-30) mmol/L Glucose (74-99) mg/dL POC Glucose (mg/dL) 139 H 134 H (70-110) mg/dL Total Protein (6.3-8.2) g/dL Arterial Blood Glucose (75-99) mg/dL Crossmatch 06/23/24 06/23/24 06/23/24 Range/Units 22:02 22:49 23:45 RBC (4.30-5.90) m/uL Hgb (13.0-17.5) gm/dL Hct (39.0-53.0) % Neutrophils # (1.3-7.7) k/uL Lymphocytes # (1.0-4.8) k/uL INR (<1.2) ABG pH (7.35-7.45) ABG pCO2 (35-45) mmHg ABG pO2 (83-108) mmHg ABG HCO3 (21-25) mmol/L ABG O2 Saturation (94-97) % ABG Ionized Calcium (4.5-5.3) mg/dL ABG Glucose (75-99) mg/dL Hemoglobin (13.0-17.5) gm/dL Sodium (137-145) mmol/L Chloride (98-107) mmol/L Carbon Dioxide (22-30) mmol/L Glucose (74-99) mg/dL POC Glucose (mg/dL) 134 H 148 H 117 H (70-110) mg/dL Total Protein (6.3-8.2) g/dL Arterial Blood Glucose (75-99) mg/dL Crossmatch 06/24/24 06/24/24 06/24/24 Range/Units 01:06 02:06 03:05 RBC (4.30-5.90) m/uL Hgb (13.0-17.5) gm/dL Hct (39.0-53.0) % Neutrophils # (1.3-7.7) k/uL Lymphocytes # (1.0-4.8) k/uL INR (<1.2) ABG pH (7.35-7.45) ABG pCO2 (35-45) mmHg ABG pO2 (83-108) mmHg ABG HCO3 (21-25) mmol/L ABG O2 Saturation (94-97) % ABG Ionized Calcium (4.5-5.3) mg/dL ABG Glucose (75-99) mg/dL Hemoglobin (13.0-17.5) gm/dL Sodium (137-145) mmol/L Chloride (98-107) mmol/L Carbon Dioxide (22-30) mmol/L Glucose (74-99) mg/dL POC Glucose (mg/dL) 113 H 122 H 120 H (70-110) mg/dL Total Protein (6.3-8.2) g/dL Arterial Blood Glucose (75-99) mg/dL Crossmatch 06/24/24 06/24/24 06/24/24 Range/Units 03:25 03:25 03:51 RBC 3.82 L (4.30-5.90) m/uL Hgb 11.7 L (13.0-17.5) gm/dL Hct 34.7 L (39.0-53.0) % Neutrophils # 7.8 H (1.3-7.7) k/uL Lymphocytes # (1.0-4.8) k/uL INR (<1.2) ABG pH (7.35-7.45) ABG pCO2 (35-45) mmHg ABG pO2 (83-108) mmHg ABG HCO3 (21-25) mmol/L ABG O2 Saturation (94-97) % ABG Ionized Calcium (4.5-5.3) mg/dL ABG Glucose (75-99) mg/dL Hemoglobin (13.0-17.5) gm/dL Sodium 133 L (137-145) mmol/L Chloride (98-107) mmol/L Carbon Dioxide 21 L (22-30) mmol/L Glucose 116 H (74-99) mg/dL POC Glucose (mg/dL) 117 H (70-110) mg/dL Total Protein 5.4 L (6.3-8.2) g/dL Arterial Blood Glucose (75-99) mg/dL Crossmatch 06/24/24 06/24/24 06/24/24 Range/Units 06:16 07:05 08:17 RBC (4.30-5.90) m/uL Hgb (13.0-17.5) gm/dL Hct (39.0-53.0) % Neutrophils # (1.3-7.7) k/uL Lymphocytes # (1.0-4.8) k/uL INR (<1.2) ABG pH (7.35-7.45) ABG pCO2 (35-45) mmHg ABG pO2 (83-108) mmHg ABG HCO3 (21-25) mmol/L ABG O2 Saturation (94-97) % ABG Ionized Calcium (4.5-5.3) mg/dL ABG Glucose (75-99) mg/dL Hemoglobin (13.0-17.5) gm/dL Sodium (137-145) mmol/L Chloride (98-107) mmol/L Carbon Dioxide (22-30) mmol/L Glucose (74-99) mg/dL POC Glucose (mg/dL) 128 H 135 H 123 H (70-110) mg/dL Total Protein (6.3-8.2) g/dL Arterial Blood Glucose (75-99) mg/dL Crossmatch 06/24/24 Range/Units 10:12 RBC (4.30-5.90) m/uL Hgb (13.0-17.5) gm/dL Hct (39.0-53.0) % Neutrophils # (1.3-7.7) k/uL Lymphocytes # (1.0-4.8) k/uL INR (<1.2) ABG pH (7.35-7.45) ABG pCO2 (35-45) mmHg ABG pO2 (83-108) mmHg ABG HCO3 (21-25) mmol/L ABG O2 Saturation (94-97) % ABG Ionized Calcium (4.5-5.3) mg/dL ABG Glucose (75-99) mg/dL Hemoglobin (13.0-17.5) gm/dL Sodium (137-145) mmol/L Chloride (98-107) mmol/L Carbon Dioxide (22-30) mmol/L Glucose (74-99) mg/dL POC Glucose (mg/dL) 124 H (70-110) mg/dL Total Protein (6.3-8.2) g/dL Arterial Blood Glucose (75-99) mg/dL Crossmatch
--- NOTE | 2024-06-24 13:18 | P.PN ---
Subjective Progress Note Date: 06/24/24 Principal diagnosis: Coronary artery disease with left main disease, STEMI this admission status post intra-aortic balloon placement, V-fib arrest x 2 with defibrillation, complete heart block status post temporary transvenous pacemaker placement, syncopal episode. History of dermatomyositis, hypothyroid and is a lifetime non-smoker. POD #1 Off-pump CABG x 3 with HILLS to LAD, left radial artery to intermediate, saphenous vein graft to posterior descending coronary artery with endovascular harvest of the saphenous vein from the right thigh and entire left lower extremity, endovascular harvest of the left radial artery, occlusion of the left atrial appendage with a 35 mm AtriCure clip. Removal of transfemoral venous temporary pacemaker and venous sheath. Status post removal of intra-aortic balloon pump. Postoperative acute blood loss anemia, expected given hemodilution. The patient was seen and examined in follow-up today June 24, 2024 at his bedside in the intensive care unit. He was successfully extubated at 6:25 PM last evening, is currently on 2 L nasal cannula with oxygen saturations 96%. His IABP was removed without incident last night at 3:35 PM. He is currently sitting up to the bedside chair, is awake, alert, oriented x 3 and is in no acute apparent distress. He denies any complaints of shortness of breath, although is complaining of some surgical type pain to his back and chest tube insertion site, currently rating his pain 8-9 out of 10 on the pain scale. Right IJ cordis remains in place with Laughlin-Nate catheter with current hemodyna mics showing a cardiac output 6.7, cardiac index 3.0, PA pressures 26/8, CVP 5 mmHg and SVR 906. Bedside telemetry is showing normal sinus rhythm heart rate 77 bpm. Oxygen saturations are 98% on 2 L nasal cannula and he is achieving 1000 mL on his incentive spirometry with encouragement. Mediastinal and left pleural chest tubes remain in place to low continuous wall suction -20 cm H2O. No air leak is present. Left pleural chest tube draining thin serosanguineous drainage with 195 mL output in the last 8 hours and 350 mL of output in the last 24 hours. Mediastinal chest tube is draining thin serosanguineous drainage with 190 mL output in the last 8 hours and 500 mL output in the last 24 hours. Ventricular epicardial pacemaker wires remain in place and are on a VVI backup of 50 bpm. Amiodarone drip is infusing per protocol no episodes of atrial fibrillation have been reported. Chest x-ray and laboratory results were reviewed. Objective - Vital Signs Vital signs: Vital Signs Temp 99.5 F 06/24/24 08:00 Pulse 66 06/24/24 08:15 Resp 21 06/24/24 08:15 BP 104/70 06/24/24 05:00 Pulse Ox 99 06/24/24 08:15 FiO2 40 06/23/24 18:15 Intake & Output 06/23/24 06/24/24 06/24/24 18:59 06:59 18:59 Intake Total 463.054 5398.701 180.098 Output Total 1525 1585 135 Balance -697.806 -24.299 45.098 Weight 106.5 kg Intake: IV 323 1338 128 0.9 @ KVO 110 Albumin Human 5% 250 ml 500 In Empty Bag 1 bag @ 250 mls/hr IVPB Q1HR PRN Rx#: [id number] CO/CI 100 80 40 Magnesium Sulfate-D5w Pmx 100 1 gm In Dextrose/Water 1 100ml.bag @ 100 mls/hr IVPB ONCE ONE Rx#: [id number] Sodium Chloride 0.9% 1, 550 70 000 ml @ 50 mls/hr IV . Q20H [facility] Rx#:[id number] pressure bags 39 108 18 tvp 20 Intake, IV Titration 504.194 72.701 2.098 Amount Albumin Human 5% 250 ml 250 In Empty Bag 1 bag @ 250 mls/hr IVPB Q1HR PRN Rx#: [id number] Clevidipine Butyrate 25 12.499 mg In Empty Bag 1 bag @ 1 MG/HR 2 mls/hr IV .Q24H [facility] Rx#:[id number] Insulin Regular 100 unit 0.926 8.702 0.598 In Sodium Chloride 0.9% 100 ml @ Per Protocol IV .Q0M [facility] Rx#:[id number] Lactated Ringers 1,000 ml 50 @ 50 mls/hr IV .Q20H [facility] Rx#:[id number] Nitroglycerin-D5w Pmx 50 7.5 1.5 1.5 mg In Dextrose/Water 1 250ml.bag @ 5 MCG/MIN 1.5 mls/hr IV .Q24H [facility] Rx#: [id number] Sodium Chloride 0.9% 1, 100 50 000 ml @ 50 mls/hr IV . Q20H [facility] Rx#:[id number] propofoL 1,000 mg In 95.768 Empty Bag 1 bag @ Titrate IV .Q0M [facility] Rx#: [id number] Oral 150 50 Output: Chest Tube Drainage 265 575 80 Chest Tube Left 85 255 40 Chest Tube Mediastinal 180 320 40 Drainage 30 Left Arm 30 Urine 1010 980 55 Estimated Blood Loss 250 Other: Voiding Method Indwelling Catheter Indwelling Catheter ABP, PAP, CO, CI - Last Documented Arterial Blood Pressure 105/53 Pulmonary Artery Pressure 23/8 Cardiac Output 5.1 Cardiac Index 2.3 - Exam CONSTITUTIONAL: Sitting up to the bedside chair in the intensive care unit, appears comfortable, cooperative, no apparent acute distress. HEENT: Neck is supple, no JVD, no lymphadenopathy. Right IJ Cordis and Laughlin- Nate catheter in place and functioning. RESPIRATORY: Lungs sounds essentially clear throughout, diminished to his bilateral bases. Respirations are symmetrical and nonlabored. Currently on 2 L nasal cannula with oxygen saturations 98%. Able to achieve 1000 mL on his incentive spirometry. Strong cough. CARDIOVASCULAR: Regular rhythm and rate. S1 and S2 present, negative for S3, gallop or murmur. Sternum is stable. Palpable peripheral pulses bilaterally. No calf pain or tenderness noted. Heart hugger in place with patient demonstrating appropriate use. Knee-high LISA hose and sequential compression devices in place to his bilateral lower extremities. GASTROINTESTINAL: Abdomen soft, nontender, nondistended. Hypoactive bowel sounds present 4 quadrants. Tolerating clear liquid diet. Passing flatus. No guarding or rigidity. GENITOURINARY: Queen present draining clear, yellow urine. Output mL in the last 8 hours INTEGUMENTARY: Skin is warm and dry with no evidence of clubbing or cyanosis. Midline sternal incision clean dry and well approximated, covered with dry intact dressing. Bilateral lower extremity EVH sites well approximated without redness or drainage. Left arm radial artery harvest sites clean, dry and approximated. No drainage or redness is present. NEUROLOGIC: Cranial nerves II through XII intact. No focal deficits. MUSKULOSKELETAL: Able to move all extremities, strength equal bilaterally, generalized weakness. PSYCHIATRIC: Alert and oriented to person place and time, appropriate affect, intact judgment and insight. INVASIVE LINES AND TUBES: Mediastinal/left pleural chest tubes present and connected to low continuous wall suction, no air leaks present. Mediastinal tube with 190 mL of thin serosanguineous drainage overnight, 500 mL output in the last 24 hours. Left pleural chest tube with 195 mL of thin serosanguineous drainage overnight, 350 mL output in the last 24 hours. Ventricular epicardial pacemaker wires present, connected to generator, VVI backup rate 50 bpm. Right internal jugular Laughlin/Cordis, right radial arterial line present. Last CO 6.7, CI 3.0, PA 26/8, SVR 906 and CVP 5 mmHg. Left arm FELICITA drain in place with scant thin serosanguineous drainage, 30 mL output in the last 8 hours. - Allied health notes Allied health notes reviewed: nursing - Labs CBC & Chem 7: 06/24/24 03:25 06/24/24 03:25 Labs: Abnormal Lab Results - Last 24 Hours (Table) 06/22/24 06/23/24 06/23/24 Range/Units 04:30 08:40 10:32 RBC (4.30-5.90) m/uL Hgb (13.0-17.5) gm/dL Hct (39.0-53.0) % Neutrophils # (1.3-7.7) k/uL Lymphocytes # (1.0-4.8) k/uL INR (<1.2) ABG pH 7.33 L (7.35-7.45) ABG pCO2 48 H (35-45) mmHg ABG pO2 111 H 199 H (83-108) mmHg ABG HCO3 26 H 26 H (21-25) mmol/L ABG O2 Saturation 97.8 H 99.0 H (94-97) % ABG Ionized Calcium (4.5-5.3) mg/dL ABG Glucose 108 H (75-99) mg/dL Hemoglobin 12.7 L 12.4 L (13.0-17.5) gm/dL Sodium (137-145) mmol/L Chloride (98-107) mmol/L Carbon Dioxide (22-30) mmol/L Glucose (74-99) mg/dL POC Glucose (mg/dL) (70-110) mg/dL Total Protein (6.3-8.2) g/dL Arterial Blood Glucose 108 H (75-99) mg/dL Crossmatch See Detail 06/23/24 06/23/24 06/23/24 Range/Units 11:25 12:27 13:36 RBC 3.42 L (4.30-5.90) m/uL Hgb 10.7 L D (13.0-17.5) gm/dL Hct 31.2 L (39.0-53.0) % Neutrophils # (1.3-7.7) k/uL Lymphocytes # (1.0-4.8) k/uL INR (<1.2) ABG pH (7.35-7.45) ABG pCO2 (35-45) mmHg ABG pO2 211 H 178 H (83-108) mmHg ABG HCO3 (21-25) mmol/L ABG O2 Saturation 99.1 H 98.8 H (94-97) % ABG Ionized Calcium 4.4 L 4.3 L (4.5-5.3) mg/dL ABG Glucose 109 H 107 H (75-99) mg/dL Hemoglobin 11.6 L 11.0 L (13.0-17.5) gm/dL Sodium (137-145) mmol/L Chloride (98-107) mmol/L Carbon Dioxide (22-30) mmol/L Glucose (74-99) mg/dL POC Glucose (mg/dL) (70-110) mg/dL Total Protein (6.3-8.2) g/dL Arterial Blood Glucose 109 H 107 H (75-99) mg/dL Crossmatch 06/23/24 06/23/24 06/23/24 Range/Units 13:36 13:36 14:16 RBC (4.30-5.90) m/uL Hgb (13.0-17.5) gm/dL Hct (39.0-53.0) % Neutrophils # (1.3-7.7) k/uL Lymphocytes # (1.0-4.8) k/uL INR 1.2 H (<1.2) ABG pH (7.35-7.45) ABG pCO2 (35-45) mmHg ABG pO2 >420 H (83-108) mmHg ABG HCO3 (21-25) mmol/L ABG O2 Saturation 100.0 H (94-97) % ABG Ionized Calcium (4.5-5.3) mg/dL ABG Glucose (75-99) mg/dL Hemoglobin 10.9 L (13.0-17.5) gm/dL Sodium (137-145) mmol/L Chloride 112 H (98-107) mmol/L Carbon Dioxide 21 L (22-30) mmol/L Glucose 100 H (74-99) mg/dL POC Glucose (mg/dL) (70-110) mg/dL Total Protein 5.2 L (6.3-8.2) g/dL Arterial Blood Glucose (75-99) mg/dL Crossmatch 06/23/24 06/23/24 06/23/24 Range/Units 16:04 17:06 17:07 RBC 3.49 L (4.30-5.90) m/uL Hgb 10.6 L (13.0-17.5) gm/dL Hct 32.2 L (39.0-53.0) % Neutrophils # (1.3-7.7) k/uL Lymphocytes # 0.9 L (1.0-4.8) k/uL INR (<1.2) ABG pH (7.35-7.45) ABG pCO2 (35-45) mmHg ABG pO2 (83-108) mmHg ABG HCO3 (21-25) mmol/L ABG O2 Saturation (94-97) % ABG Ionized Calcium (4.5-5.3) mg/dL ABG Glucose (75-99) mg/dL Hemoglobin (13.0-17.5) gm/dL Sodium (137-145) mmol/L Chloride (98-107) mmol/L Carbon Dioxide (22-30) mmol/L Glucose (74-99) mg/dL POC Glucose (mg/dL) 117 H 121 H (70-110) mg/dL Total Protein (6.3-8.2) g/dL Arterial Blood Glucose (75-99) mg/dL Crossmatch 06/23/24 06/23/24 06/23/24 Range/Units 18:10 18:12 19:08 RBC (4.30-5.90) m/uL Hgb (13.0-17.5) gm/dL Hct (39.0-53.0) % Neutrophils # (1.3-7.7) k/uL Lymphocytes # (1.0-4.8) k/uL INR (<1.2) ABG pH (7.35-7.45) ABG pCO2 (35-45) mmHg ABG pO2 147 H (83-108) mmHg ABG HCO3 (21-25) mmol/L ABG O2 Saturation 99.6 H (94-97) % ABG Ionized Calcium (4.5-5.3) mg/dL ABG Glucose (75-99) mg/dL Hemoglobin 10.6 L (13.0-17.5) gm/dL Sodium (137-145) mmol/L Chloride (98-107) mmol/L Carbon Dioxide (22-30) mmol/L Glucose (74-99) mg/dL POC Glucose (mg/dL) 136 H 137 H (70-110) mg/dL Total Protein (6.3-8.2) g/dL Arterial Blood Glucose (75-99) mg/dL Crossmatch 06/23/24 06/23/24 06/23/24 Range/Units 20:00 20:01 20:48 RBC 3.64 L (4.30-5.90) m/uL Hgb 10.8 L (13.0-17.5) gm/dL Hct 33.3 L (39.0-53.0) % Neutrophils # 8.6 H (1.3-7.7) k/uL Lymphocytes # 0.6 L (1.0-4.8) k/uL INR (<1.2) ABG pH (7.35-7.45) ABG pCO2 (35-45) mmHg ABG pO2 (83-108) mmHg ABG HCO3 (21-25) mmol/L ABG O2 Saturation (94-97) % ABG Ionized Calcium (4.5-5.3) mg/dL ABG Glucose (75-99) mg/dL Hemoglobin (13.0-17.5) gm/dL Sodium (137-145) mmol/L Chloride (98-107) mmol/L Carbon Dioxide (22-30) mmol/L Glucose (74-99) mg/dL POC Glucose (mg/dL) 139 H 134 H (70-110) mg/dL Total Protein (6.3-8.2) g/dL Arterial Blood Glucose (75-99) mg/dL Crossmatch 06/23/24 06/23/24 06/23/24 Range/Units 22:02 22:49 23:45 RBC (4.30-5.90) m/uL Hgb (13.0-17.5) gm/dL Hct (39.0-53.0) % Neutrophils # (1.3-7.7) k/uL Lymphocytes # (1.0-4.8) k/uL INR (<1.2) ABG pH (7.35-7.45) ABG pCO2 (35-45) mmHg ABG pO2 (83-108) mmHg ABG HCO3 (21-25) mmol/L ABG O2 Saturation (94-97) % ABG Ionized Calcium (4.5-5.3) mg/dL ABG Glucose (75-99) mg/dL Hemoglobin (13.0-17.5) gm/dL Sodium (137-145) mmol/L Chloride (98-107) mmol/L Carbon Dioxide (22-30) mmol/L Glucose (74-99) mg/dL POC Glucose (mg/dL) 134 H 148 H 117 H (70-110) mg/dL Total Protein (6.3-8.2) g/dL Arterial Blood Glucose (75-99) mg/dL Crossmatch 06/24/24 06/24/24 06/24/24 Range/Units 01:06 02:06 03:05 RBC (4.30-5.90) m/uL Hgb (13.0-17.5) gm/dL Hct (39.0-53.0) % Neutrophils # (1.3-7.7) k/uL Lymphocytes # (1.0-4.8) k/uL INR (<1.2) ABG pH (7.35-7.45) ABG pCO2 (35-45) mmHg ABG pO2 (83-108) mmHg ABG HCO3 (21-25) mmol/L ABG O2 Saturation (94-97) % ABG Ionized Calcium (4.5-5.3) mg/dL ABG Glucose (75-99) mg/dL Hemoglobin (13.0-17.5) gm/dL Sodium (137-145) mmol/L Chloride (98-107) mmol/L Carbon Dioxide (22-30) mmol/L Glucose (74-99) mg/dL POC Glucose (mg/dL) 113 H 122 H 120 H (70-110) mg/dL Total Protein (6.3-8.2) g/dL Arterial Blood Glucose (75-99) mg/dL Crossmatch 06/24/24 06/24/24 06/24/24 Range/Units 03:25 03:25 03:51 RBC 3.82 L (4.30-5.90) m/uL Hgb 11.7 L (13.0-17.5) gm/dL Hct 34.7 L (39.0-53.0) % Neutrophils # 7.8 H (1.3-7.7) k/uL Lymphocytes # (1.0-4.8) k/uL INR (<1.2) ABG pH (7.35-7.45) ABG pCO2 (35-45) mmHg ABG pO2 (83-108) mmHg ABG HCO3 (21-25) mmol/L ABG O2 Saturation (94-97) % ABG Ionized Calcium (4.5-5.3) mg/dL ABG Glucose (75-99) mg/dL Hemoglobin (13.0-17.5) gm/dL Sodium 133 L (137-145) mmol/L Chloride (98-107) mmol/L Carbon Dioxide 21 L (22-30) mmol/L Glucose 116 H (74-99) mg/dL POC Glucose (mg/dL) 117 H (70-110) mg/dL Total Protein 5.4 L (6.3-8.2) g/dL Arterial Blood Glucose (75-99) mg/dL Crossmatch 06/24/24 06/24/24 06/24/24 Range/Units 06:16 07:05 08:17 RBC (4.30-5.90) m/uL Hgb (13.0-17.5) gm/dL Hct (39.0-53.0) % Neutrophils # (1.3-7.7) k/uL Lymphocytes # (1.0-4.8) k/uL INR (<1.2) ABG pH (7.35-7.45) ABG pCO2 (35-45) mmHg ABG pO2 (83-108) mmHg ABG HCO3 (21-25) mmol/L ABG O2 Saturation (94-97) % ABG Ionized Calcium (4.5-5.3) mg/dL ABG Glucose (75-99) mg/dL Hemoglobin (13.0-17.5) gm/dL Sodium (137-145) mmol/L Chloride (98-107) mmol/L Carbon Dioxide (22-30) mmol/L Glucose (74-99) mg/dL POC Glucose (mg/dL) 128 H 135 H 123 H (70-110) mg/dL Total Protein (6.3-8.2) g/dL Arterial Blood Glucose (75-99) mg/dL Crossmatch - Imaging and Cardiology Chest x-ray: report reviewed, image reviewed Assessment and Plan Assessment: Coronary artery disease with left main disease, STEMI this admission status post intra-aortic balloon placement, status post three-vessel off-pump coronary artery bypass grafting surgery and subsequent removal of intra-aortic balloon pump V-fib arrest x 2 with defibrillation Complete heart block status post temporary transvenous pacemaker placement Syncopal episode History of dermatomyositis, on Cellcept outpatient, last dose 06/20 Hypothyroid, TSH 33.8, T4 1.32 Plan: Continue aspirin, statin, Plavix and beta-willie. Coreg discontinued and started metoprolol tartrate 25 mg p.o. twice daily with hold parameters. Discontinue nitroglycerin drip. Will add calcium channel willie amlodipine when blood pressure is able to tolerate for radial artery spasm prophylaxis. Amiodarone drip infusing per protocol no atrial fibrillation reported will transition to amiodarone 400 mg p.o. twice daily. Wean oxygen as tolerated. Encourage incentive spirometry use 10 times every hour while awake. Bronchodilators per pulmonology. Increase activity as tolerated, PT/OT/cardiac rehab consulted. Will monitor daily labs and chest x-rays. Electrolyte replacement per protocol. GI/DVT prophylaxis. Pain control per current medication regimen. Will add Toradol. Insulin management per internal medicine. Patient is not a diabetic, preoperative hemoglobin A1c was 5.5%, needs tight blood sugar control. Should remain on continuous IV insulin for 48 hours, then may transition to subcutaneous per protocol Remove right IJ Laughlin Magnus catheter, keep right IJ cordis for another 24 hours, connected to continuous CVP monitoring. Continue chest tubes for another 24 hours, monitor output. Continue Queen catheter for another 24 hours, continue to monitor and record strict accurate intake and output. Continue levothyroxine 250 mcg p.o. daily and home dose of gabapentin 800 mg p.o. nightly. More recommendations to follow based on patient's clinical course. Time with Patient: Greater than 30
[2024-06-24] MEDS: MIDODRINE 5 MG TAB PO SCH (13:36)
[2024-06-24] MEDS: CALCIUM GLUCONATE IN NACL 1 GM in SALINE 1 100ML.BAG IVPB ONE (13:51)
[2024-06-24 15:19] LABS: Glucose,Whole Blood 126 mg/dL (70-110)
[2024-06-24 17:21] LABS: Glucose,Whole Blood 124 mg/dL (70-110)
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
[2024-06-24 19:41] LABS: Glucose,Whole Blood 122 mg/dL (70-110)
[2024-06-24] MEDS: METOPROLOL TARTRATE 25 MG TAB PO SCH (19:43)
[2024-06-24] MEDS: SENNOSIDES-DOCUSATE SODIUM 1 EACH TAB PO SCH (19:49)
[2024-06-24] MEDS: GABAPENTIN 400 MG CAP PO SCH (19:49)
[2024-06-24 23:07] LABS: Glucose,Whole Blood 116 mg/dL (70-110)
[2024-06-24] MEDS: DOPamine DRIP 800 MG in DEXTROSE/WATER 1 250ML.BAG IV SCH (23:42)
[2024-06-24 23:54] LABS: Glucose,Whole Blood 112 mg/dL (70-110)
[2024-06-25] MEDS: ONDANSETRON 4 MG/2 ML VIAL IVP PRN
[2024-06-25] MEDS: DOPamine DRIP 800 MG in DEXTROSE/WATER 1 250ML.BAG IV SCH (01:10)
[2024-06-25 02:04] LABS: Glucose,Whole Blood 125 mg/dL (70-110)
[2024-06-25 02:30] LABS: Ionized Calcium 4.7 mg/dL (4.5-5.3)
[2024-06-25 02:39] LABS: ALT 9 U/L (4-49); AST 20 U/L (17-59); African American GFR (CKD) 58 (>60 ml/min/1.73 sqM); Albumin 3.7 g/dL (3.5-5.0); Alkaline Phosphatase 45 U/L (38-126); Anion Gap 6 mmol/L; Blood Urea Nitrogen 20 mg/dL (9-20); Calcium 8.1 mg/dL (8.4-10.2); Carbon Dioxide 22 mmol/L (22-30); Chloride 105 mmol/L (98-107); Glucose 115 mg/dL (74-99); Non-African American GFR(CKD) 50 (>60 ml/min/1.73 sqM); Potassium 3.7 mmol/L (3.5-5.1); Sodium 133 mmol/L (137-145); Total Bilirubin 1.5 mg/dL (0.2-1.3); Total Protein 5.3 g/dL (6.3-8.2)
[2024-06-25 02:56] LABS: Basophils % (A) 0 %; Eosinophils # (A) 0.2 k/uL (0-0.7); Eosinophils % (A) 2 %; HCT 27.7 % (39.0-53.0); Lymphocytes # (A) 0.8 k/uL (1.0-4.8); Lymphocytes % (A) 8 %; MCH 31.4 pg (25.0-35.0); MCHC 34.3 g/dL (31.0-37.0); MCV 91.5 fL (80.0-100.0); Mean Platelet Volume 8.6; Monocytes # (A) 0.5 k/uL (0-1.0); Monocytes % (A) 5 %; Neutrophils # (A) 8.1 k/uL (1.3-7.7); Neutrophils % (A) 84 %; Platelet Count 195 k/uL (150-450); RBC 3.03 m/uL (4.30-5.90); RDW 14.2 % (11.5-15.5); WBC 9.7 k/uL (3.8-10.6)
[2024-06-25 03:11] LABS: HGB 9.5 gm/dL (13.0-17.5)
[2024-06-25] MEDS: POTASSIUM CHLORIDE 10 MEQ in WATER FOR INJECTION 1 100ML.BAG IVPB SCH (03:15)
[2024-06-25 04:07] LABS: Glucose,Whole Blood 122 mg/dL (70-110)
[2024-06-25 05:52] LABS: Glucose,Whole Blood 119 mg/dL (70-110)
--- NOTE | 2024-06-25 06:32 | XR ---
EXAMINATION TYPE: XR chest 1V portable DATE OF EXAM: 06/25/2024 COMPARISON: 06/24/2024 HISTORY: Postop cardiac surgery TECHNIQUE: Single frontal view of the chest is obtained. FINDINGS: The Fife-Nate catheter has been removed in the interval. There is no change in the position of the me diastinal tube and left chest tube. There is persistent pulmonary vascular congestion and retrocardiac opacity. IMPRESSION: No change in the acute cardiopulmonary process [facility], Workstation: [id number] 06/25/2024 6:30 AM
[2024-06-25] MEDS: METOPROLOL TARTRATE 12.5 MG TAB PO SCH (07:53)
[2024-06-25 09:03] LABS: Glucose,Whole Blood 134 mg/dL (70-110)
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
--- NOTE | 2024-06-25 10:18 | P.PN ---
Subjective Progress Note Date: 06/25/24 Principal diagnosis: Coronary artery disease with left main disease, STEMI this admission status post intra-aortic balloon placement, V-fib arrest x 2 with defibrillation, complete heart block status post temporary transvenous pacemaker placement, syncopal episode. History of dermatomyositis, hypothyroid and is a lifetime non-smoker. POD #2 Off-pump CABG x 3 with HILLS to LAD, left radial artery to intermediate, saphenous vein graft to posterior descending coronary artery with endovascular harvest of the saphenous vein from the right thigh and entire left lower extremity, endovascular harvest of the left radial artery, occlusion of the left atrial appendage with a 35 mm AtriCure clip. Removal of transfemoral venous temporary pacemaker and venous sheath. Status post removal of intra-aortic balloon pump. Postoperative acute blood loss anemia, expected given hemodilution. Oliguria, secondary to hypotension, requiring initiation of dopamine drip at 3 mcg/kg/min. The patient was seen and examined today June 25, 2024 at his bedside in the intensive care unit. The patient is currently sitting up to the bedside chair, is awake, alert, oriented x 3 and is in no acute apparent distress. Denies any complaints of shortness of breath at this time, reports his pain is well- controlled on his current pain medication regimen. He is complaining of feeling fatigued. He was started on dopamine drip at 3 mcg/kg/min for some oliguria throughout the night, and his urine output has been 50 to 75 mL/h since the dopamine drip has been initiated. Current blood pressure is 106/54 with a MAP of 72. Oxygen saturations are 95% on room air and he is achieving 1000 mL on his incentive spirometry with encouragement. Mediastinal and left pleural chest tubes remain in place to low continuous wall suction -20 cm H2O. No air leak is present. Mediastinal chest tube draining thin serosanguineous drainage with 100 mL output in the last 8 hours and 280 mL output in the last 24 hours. Left pleural chest tube draining thin serosanguineous drainage with 170 mL output in the last 8 hours and 270 mL output in the last 24 hours. Bedside telemetry is showing normal sinus rhythm heart rate 85 bpm. Ventricular epicardial pacemaker wires remain in place on a VVI backup of 50 bpm. Right IJ cordis remains in place with continuous CVP monitoring, current CVP pressure 9 mmHg. The patient has been up ambulating in the intensive care unit hallway with standby assistance from nursing and therapy staff and tolerating well. Laboratory and chest x-ray results were reviewed. Objective - Vital Signs Vital signs: Vital Signs Temp 99.1 F 06/25/24 08:00 Pulse 88 06/25/24 08:17 Resp 19 06/25/24 08:00 BP 118/71 06/25/24 08:00 Pulse Ox 95 06/25/24 08:02 FiO2 40 06/23/24 18:15 Intake & Output 06/24/24 06/25/24 06/25/24 18:59 06:59 18:59 Intake Total 1963.991 977.007 200.411 Output Total 545 745 60 Balance 1418.991 232.007 140.411 Weight 106.5 kg 111.3 kg Intake: IV 718 918 36 Albumin Human 5% 250 ml 250 In Empty Bag 1 bag @ 250 mls/hr IVPB Q1HR PRN Rx#: [id number] CO/CI 40 Potassium Chloride 10 meq 200 In Water For Injection 1 100ml.bag @ 100 mls/hr IVPB Q1H [facility] Rx#: [id number] Sodium Chloride 0.9% 1, 600 390 30 000 ml @ 30 mls/hr IV . Q24H [facility] Rx#:[id number] pressure bags 78 78 6 Intake, IV Titration 1045.991 59.007 14.411 Amount Albumin Human 5% 250 ml 250 In Empty Bag 1 bag @ 250 mls/hr IVPB Q1HR PRN Rx#: [id number] Albumin Human 5% 500 ml 500 In Empty Bag 1 bag @ 250 mls/hr IVPB ONCE ONE Rx#: [id number] Amiodarone 450 mg In 193.893 Dextrose 5% in Water 250 ml @ 0.5 MG/MIN 16.667 mls/hr IV .Q15H [facility] Rx#: [id number] Calcium Gluconate in NaCl 100 2 gm In Saline 1 100ml. bag @ 100 mls/hr IVPB ONCE PRN Rx#:[id number] DOPamine DRIP 800 mg In 8.787 Dextrose/Water 1 250ml. bag @ 3 MCG/KG/MIN 5.991 mls/hr IV .Q24H [facility] Rx#: [id number] DOPamine DRIP 800 mg In 50.220 14.411 Dextrose/Water 1 250ml. bag @ 3 MCG/KG/MIN 5.991 mls/hr IV .Q24H [facility] Rx#: [id number] Insulin Regular 100 unit 0.598 0 In Sodium Chloride 0.9% 100 ml @ Per Protocol IV .Q0M [facility] Rx#:[id number] Nitroglycerin-D5w Pmx 50 1.5 mg In Dextrose/Water 1 250ml.bag @ 5 MCG/MIN 1.5 mls/hr IV .Q24H [facility] Rx#: [id number] Oral 200 150 Output: Chest Tube Drainage 280 310 10 Chest Tube Left 140 180 10 Chest Tube Mediastinal 140 130 0 Urine 265 435 50 Other: Voiding Method Indwelling Catheter Indwelling Catheter Indwelling Catheter ABP, PAP, CO, CI - Last Documented Arterial Blood Pressure 112/62 Pulmonary Artery Pressure 23/8 Cardiac Output 5.1 Cardiac Index 2.3 - Exam CONSTITUTIONAL: Sitting up to the bedside chair in the intensive care unit, appears comfortable, cooperative, no apparent acute distress. HEENT: Neck is supple, no JVD, no lymphadenopathy. Right IJ Cordis in place and functioning. RESPIRATORY: Lungs sounds essentially clear throughout, diminished to his bilateral bases. Respirations are symmetrical and nonlabored. Currently on room air with oxygen saturations 95%. Able to achieve 1000 mL on his incentive spirometry. Strong cough. CARDIOVASCULAR: Regular rhythm and rate. S1 and S2 present, negative for S3, gallop or murmur. Sternum is stable. Normal sinus rhythm heart rate 85 bpm on bedside telemetry. Palpable peripheral pulses bilaterally. No calf pain or tenderness noted. Heart hugger in place with patient demonstrating appropriate use. Knee-high LISA hose and sequential compression devices in place to his bilateral lower extremities. GASTROINTESTINAL: Abdomen soft, nontender, nondistended. Active bowel sounds present 4 quadrants. Tolerating clear liquid diet. Passing flatus. No guarding or rigidity. GENITOURINARY: Queen present draining clear, yellow urine. Urine output 410 mL in the last 8 hours. INTEGUMENTARY: Skin is warm and dry with no evidence of clubbing or cyanosis. Midline sternal incision clean dry and well approximated, covered with dry intact dressing. Bilateral lower extremity EVH sites well approximated without redness or drainage. Left arm radial artery harvest sites clean, dry and approximated. No drainage or redness is present. NEUROLOGIC: Cranial nerves II through XII intact. No focal deficits. MUSKULOSKELETAL: Able to move all extremities, strength equal bilaterally, generalized weakness. PSYCHIATRIC: Alert and oriented to person place and time, appropriate affect, intact judgment and insight. INVASIVE LINES AND TUBES: Mediastinal/left pleural chest tubes present and connected to low continuous wall suction, no air leaks present. Mediastinal tube with 100 mL of thin serosanguineous drainage overnight, 280 mL output in the last 24 hours. Left pleural chest tube with 170 mL of thin serosanguineous drainage overnight, 270 mL output in the last 24 hours. Ventricular epicardial pacemaker wires present, connected to generator, VVI backup rate 50 bpm. Right internal jugular Cordis, right radial arterial line present. Current CVP 9 mmHg. - Allied health notes Allied health notes reviewed: nursing - Labs CBC & Chem 7: 06/25/24 02:04 06/25/24 09:01 Labs: Abnormal Lab Results - Last 24 Hours (Table) 06/22/24 06/24/24 06/24/24 Range/Units 04:30 10:12 15:18 RBC (4.30-5.90) m/uL Hgb (13.0-17.5) gm/dL Hct (39.0-53.0) % Neutrophils # (1.3-7.7) k/uL Lymphocytes # (1.0-4.8) k/uL Sodium (137-145) mmol/L Creatinine (0.66-1.25) mg/dL Glucose (74-99) mg/dL POC Glucose (mg/dL) 124 H 126 H (70-110) mg/dL Calcium (8.4-10.2) mg/dL Total Bilirubin (0.2-1.3) mg/dL Total Protein (6.3-8.2) g/dL Crossmatch See Detail 06/24/24 06/24/24 06/24/24 Range/Units 17:19 19:40 23:06 RBC (4.30-5.90) m/uL Hgb (13.0-17.5) gm/dL Hct (39.0-53.0) % Neutrophils # (1.3-7.7) k/uL Lymphocytes # (1.0-4.8) k/uL Sodium (137-145) mmol/L Creatinine (0.66-1.25) mg/dL Glucose (74-99) mg/dL POC Glucose (mg/dL) 124 H 122 H 116 H (70-110) mg/dL Calcium (8.4-10.2) mg/dL Total Bilirubin (0.2-1.3) mg/dL Total Protein (6.3-8.2) g/dL Crossmatch 06/24/24 06/25/24 06/25/24 Range/Units 23:52 02:04 02:04 RBC 3.03 L (4.30-5.90) m/uL Hgb 9.5 L D (13.0-17.5) gm/dL Hct 27.7 L (39.0-53.0) % Neutrophils # 8.1 H (1.3-7.7) k/uL Lymphocytes # 0.8 L (1.0-4.8) k/uL Sodium 133 L (137-145) mmol/L Creatinine 1.41 H (0.66-1.25) mg/dL Glucose 115 H (74-99) mg/dL POC Glucose (mg/dL) 112 H (70-110) mg/dL Calcium 8.1 L (8.4-10.2) mg/dL Total Bilirubin 1.5 H (0.2-1.3) mg/dL Total Protein 5.3 L (6.3-8.2) g/dL Crossmatch 06/25/24 06/25/24 06/25/24 Range/Units 02:04 04:05 05:50 RBC (4.30-5.90) m/uL Hgb (13.0-17.5) gm/dL Hct (39.0-53.0) % Neutrophils # (1.3-7.7) k/uL Lymphocytes # (1.0-4.8) k/uL Sodium (137-145) mmol/L Creatinine (0.66-1.25) mg/dL Glucose (74-99) mg/dL POC Glucose (mg/dL) 125 H 122 H 119 H (70-110) mg/dL Calcium (8.4-10.2) mg/dL Total Bilirubin (0.2-1.3) mg/dL Total Protein (6.3-8.2) g/dL Crossmatch - Imaging and Cardiology Chest x-ray: report reviewed, image reviewed Assessment and Plan Assessment: Coronary artery disease with left main disease, STEMI this admission status post intra-aortic balloon placement, status post three-vessel off-pump coronary artery bypass grafting surgery and subsequent removal of intra-aortic balloon pump V-fib arrest x 2 with defibrillation Complete heart block status post temporary transvenous pacemaker placement Syncopal episode Oliguria, likely secondary to hypotension, requiring initiation of dopamine drip at 3 mcg/kg/min History of dermatomyositis, on Cellcept outpatient, last dose 06/20 Hypothyroid, TSH 33.8, T4 1.32 Plan: Continue aspirin, statin, Plavix and beta-willie. Continue metoprolol tartrate 12.5 mg p.o. twice daily with hold parameters. Continue dopamine drip at 3 mcg/kg/min. Will add calcium channel willie amlodipine when blood pressure is able to tolerate for radial artery spasm prophylaxis. Encourage incentive spirometry use 10 times every hour while awake. Bronchodilators per pulmonology. Increase activity as tolerated, PT/OT/cardiac rehab following. Will monitor daily labs and chest x-rays. Electrolyte replacement per protocol. GI/DVT prophylaxis. Pain control per current medication regimen. Toradol discontinued as his creatinine is 1.41 today. Discontinue oxycodone. Insulin management per internal medicine. Patient is not a diabetic, preoperative hemoglobin A1c was 5.5%, needs tight blood sugar control. Should remain on continuous IV insulin for 48 hours, then may transition to subcutaneous per protocol Keep right IJ cordis for another 24 hours, connected to continuous CVP monitoring. We will remove his mediastinal chest tube and continue left pleural chest tube for another 24 hours, monitor output. Continue Queen catheter for another 24 hours, continue to monitor and record strict accurate intake and output. Continue levothyroxine 250 mcg p.o. daily and home dose of gabapentin 800 mg p.o. nightly. More recommendations to follow based on patient's clinical course. Time with Patient: Greater than 30
[2024-06-25 11:32] LABS: Glucose,Whole Blood 127 mg/dL (70-110)
--- NOTE | 2024-06-25 11:40 | P.PN ---
Subjective Progress Note Date: 06/25/24 Subjective: Patient seen and examined at bedside. Overnight he was a little hypotensive, had reduced urinary output. Was started on dopamine drip. Pertinent positives and negatives as discussed above, a complete review of systems was performed and all other systems are negative. Vitals Signs Reviewed. General: Nontoxic, no distress, appears at stated age, chest tubes in place Derm: Warm, dry Head: Atraumatic, normocephalic, symmetric Eyes: EOMI, no lid lag, anicteric sclera Mouth: No lip lesion, mucus membranes moist Cardiovascular: S1S2 reg, no murmur Lungs: CTA bilateral, no rhonchi, no rales, no accessory muscle use Abdominal: Soft, nontender to palpation, no guarding, no appreciable organomegaly Ext: No gross muscle atrophy, no edema, no contractures Neuro: CN II-XI grossly intact, no focal neuro deficits Psych: Alert, oriented, appropriate affect Data Reviewed Today: Pertinent Labs: WBC 9.7, hemoglobin 9.5, sodium 133, creatinine 1.41, blood sugars range between 1 15-1 34, total bili 1.5 Imaging: Chest x-ray shows interstitial opacities, similar to yesterday Assessment and Plan: #Status post CABG X3 # STEMI S/P intra-aortic balloon placement and removal #Multivessel CAD #V-fib s/p defibrillation #Complete heart block Cardiogenic shock Acute kidney injury Acute blood loss anemia, anticipated outcome of surgery Continue aspirin 325 mg daily, and Lipitor 40 mg daily, metoprolol 12.[address] surgery note reviewed, patient on dopamine drip, wean pressors, continue Queen catheter for another 24 hours, remove mediastinal chest tube, continue left pleural chest tube for another 24 hours -Patient also on midodrine 10 AC 3 times daily -Continue to monitor renal function -Pulmonology note reviewed, continue current treatment -Cardiology following - ICU note reviewed, continue management as above #Hyperglycemia -Insulin drip changed to subcu insulin ACH S, monitor for hypoglycemia # Subclinical hypothyroidism -TSH 33.8, free T4 1.32. -Continue Synthroid 250 mcg daily, increased by CT surgery Neuropathy -Gabapentin 800 nightly Dermatomyositis -Holding CellCept Thank you for allowing us to participate in the care of this pleasant patient. Do not hesitate to contact us with questions. Someone can be reached from the [facility] hospitalist group all hours of the day at [phone] or via perfect serve. Objective - Vital Signs Vital signs: Vital Signs Temp 99.1 F 06/25/24 08:00 Pulse 84 06/25/24 11:00 Resp 31 H 06/25/24 11:00 BP 81/55 06/25/24 11:00 Pulse Ox 94 L 06/25/24 11:00 FiO2 40 06/23/24 18:15 Intake & Output 06/24/24 06/25/24 06/25/24 18:59 06:59 18:59 Intake Total 1963.991 977.007 571.924 Output Total 545 745 250 Balance 1418.991 232.007 321.924 Weight 106.5 kg 111.3 kg Intake: IV 718 918 144 Albumin Human 5% 250 ml 250 In Empty Bag 1 bag @ 250 mls/hr IVPB Q1HR PRN Rx#: [id number] CO/CI 40 Potassium Chloride 10 meq 200 In Water For Injection 1 100ml.bag @ 100 mls/hr IVPB Q1H [facility] Rx#: [id number] Sodium Chloride 0.9% 1, 600 390 120 000 ml @ 30 mls/hr IV . Q24H [facility] Rx#:[id number] pressure bags 78 78 24 Intake, IV Titration 1045.991 59.007 277.924 Amount Albumin Human 5% 250 ml 250 250 In Empty Bag 1 bag @ 250 mls/hr IVPB Q1HR PRN Rx#: [id number] Albumin Human 5% 500 ml 500 In Empty Bag 1 bag @ 250 mls/hr IVPB ONCE ONE Rx#: [id number] Amiodarone 450 mg In 193.893 Dextrose 5% in Water 250 ml @ 0.5 MG/MIN 16.667 mls/hr IV .Q15H [facility] Rx#: [id number] Calcium Gluconate in NaCl 100 2 gm In Saline 1 100ml. bag @ 100 mls/hr IVPB ONCE PRN Rx#:[id number] DOPamine DRIP 800 mg In 8.787 Dextrose/Water 1 250ml. bag @ 3 MCG/KG/MIN 5.991 mls/hr IV .Q24H [facility] Rx#: [id number] DOPamine DRIP 800 mg In 50.220 27.924 Dextrose/Water 1 250ml. bag @ 3 MCG/KG/MIN 5.991 mls/hr IV .Q24H [facility] Rx#: [id number] Insulin Regular 100 unit 0.598 0 In Sodium Chloride 0.9% 100 ml @ Per Protocol IV .Q0M [facility] Rx#:[id number] Nitroglycerin-D5w Pmx 50 1.5 mg In Dextrose/Water 1 250ml.bag @ 5 MCG/MIN 1.5 mls/hr IV .Q24H [facility] Rx#: [id number] Oral 200 150 Output: Chest Tube Drainage 280 310 50 Chest Tube Left 140 180 40 Chest Tube Mediastinal 140 130 10 Urine 265 435 200 Other: Voiding Method Indwelling Catheter Indwelling Catheter Indwelling Catheter ABP, PAP, CO, CI - Last Documented Arterial Blood Pressure 123/58 Pulmonary Artery Pressure 23/8 Cardiac Output 5.1 Cardiac Index 2.3 - Labs CBC & Chem 7: 06/25/24 02:04 06/25/24 09:01 Labs: Abnormal Lab Results - Last 24 Hours (Table) 06/22/24 06/24/24 06/24/24 Range/Units 04:30 15:18 17:19 RBC (4.30-5.90) m/uL Hgb (13.0-17.5) gm/dL Hct (39.0-53.0) % Neutrophils # (1.3-7.7) k/uL Lymphocytes # (1.0-4.8) k/uL Sodium (137-145) mmol/L Creatinine (0.66-1.25) mg/dL Glucose (74-99) mg/dL POC Glucose (mg/dL) 126 H 124 H (70-110) mg/dL Calcium (8.4-10.2) mg/dL Total Bilirubin (0.2-1.3) mg/dL Total Protein (6.3-8.2) g/dL Crossmatch See Detail 06/24/24 06/24/24 06/24/24 Range/Units 19:40 23:06 23:52 RBC (4.30-5.90) m/uL Hgb (13.0-17.5) gm/dL Hct (39.0-53.0) % Neutrophils # (1.3-7.7) k/uL Lymphocytes # (1.0-4.8) k/uL Sodium (137-145) mmol/L Creatinine (0.66-1.25) mg/dL Glucose (74-99) mg/dL POC Glucose (mg/dL) 122 H 116 H 112 H (70-110) mg/dL Calcium (8.4-10.2) mg/dL Total Bilirubin (0.2-1.3) mg/dL Total Protein (6.3-8.2) g/dL Crossmatch 06/25/24 06/25/24 06/25/24 Range/Units 02:04 02:04 02:04 RBC 3.03 L (4.30-5.90) m/uL Hgb 9.5 L D (13.0-17.5) gm/dL Hct 27.7 L (39.0-53.0) % Neutrophils # 8.1 H (1.3-7.7) k/uL Lymphocytes # 0.8 L (1.0-4.8) k/uL Sodium 133 L (137-145) mmol/L Creatinine 1.41 H (0.66-1.25) mg/dL Glucose 115 H (74-99) mg/dL POC Glucose (mg/dL) 125 H (70-110) mg/dL Calcium 8.1 L (8.4-10.2) mg/dL Total Bilirubin 1.5 H (0.2-1.3) mg/dL Total Protein 5.3 L (6.3-8.2) g/dL Crossmatch 06/25/24 06/25/24 06/25/24 Range/Units 04:05 05:50 09:01 RBC (4.30-5.90) m/uL Hgb (13.0-17.5) gm/dL Hct (39.0-53.0) % Neutrophils # (1.3-7.7) k/uL Lymphocytes # (1.0-4.8) k/uL Sodium (137-145) mmol/L Creatinine (0.66-1.25) mg/dL Glucose (74-99) mg/dL POC Glucose (mg/dL) 122 H 119 H 134 H (70-110) mg/dL Calcium (8.4-10.2) mg/dL Total Bilirubin (0.2-1.3) mg/dL Total Protein (6.3-8.2) g/dL Crossmatch 06/25/24 Range/Units 11:31 RBC (4.30-5.90) m/uL Hgb (13.0-17.5) gm/dL Hct (39.0-53.0) % Neutrophils # (1.3-7.7) k/uL Lymphocytes # (1.0-4.8) k/uL Sodium (137-145) mmol/L Creatinine (0.66-1.25) mg/dL Glucose (74-99) mg/dL POC Glucose (mg/dL) 127 H (70-110) mg/dL Calcium (8.4-10.2) mg/dL Total Bilirubin (0.2-1.3) mg/dL Total Protein (6.3-8.2) g/dL Crossmatch
[2024-06-25] MEDS: INSULIN ASPART (NovoLOG) 100 UNIT/ML VIAL SQ SCH (11:52)
[2024-06-25] MEDS: MIDODRINE 5 MG TAB PO SCH (12:35)
[2024-06-25] MEDS: CALCIUM GLUCONATE IN NACL 1 GM in SALINE 1 100ML.BAG IVPB ONE (13:31)
[2024-06-25] MEDS: ALBUMIN HUMAN 5% 250 ML in EMPTY BAG 1 BAG IVPB STA (14:35)
[2024-06-25 16:39] LABS: Glucose,Whole Blood 123 mg/dL (70-110)
[2024-06-25 20:52] LABS: Glucose,Whole Blood 133 mg/dL (70-110)
[2024-06-26 05:14] LABS: Basophils % (A) 0 %; Eosinophils # (A) 0.2 k/uL (0-0.7); Eosinophils % (A) 2 %; HGB 8.8 gm/dL (13.0-17.5); Lymphocytes # (A) 1.5 k/uL (1.0-4.8); Lymphocytes % (A) 15 %; MCH 30.8 pg (25.0-35.0); MCHC 33.7 g/dL (31.0-37.0); MCV 91.4 fL (80.0-100.0); Mean Platelet Volume 8.2; Monocytes # (A) 0.6 k/uL (0-1.0); Monocytes % (A) 6 %; Neutrophils # (A) 7.7 k/uL (1.3-7.7); Neutrophils % (A) 76 %; Platelet Count 222 k/uL (150-450); RBC 2.84 m/uL (4.30-5.90); RDW 14.4 % (11.5-15.5); WBC 10.2 k/uL (3.8-10.6)
[2024-06-26 05:39] LABS: ALT 11 U/L (4-49); AST 22 U/L (17-59); African American GFR (CKD) 84 (>60 ml/min/1.73 sqM); Albumin 3.2 g/dL (3.5-5.0); Alkaline Phosphatase 85 U/L (38-126); Anion Gap 4 mmol/L; Blood Urea Nitrogen 20 mg/dL (9-20); Calcium 8.5 mg/dL (8.4-10.2); Carbon Dioxide 22 mmol/L (22-30); Chloride 109 mmol/L (98-107); Glucose 97 mg/dL (74-99); Non-African American GFR(CKD) 73 (>60 ml/min/1.73 sqM); Potassium 4.1 mmol/L (3.5-5.1); Sodium 135 mmol/L (137-145); Total Protein 5.1 g/dL (6.3-8.2)
--- NOTE | 2024-06-26 07:37 | XR ---
EXAMINATION TYPE: XR chest 1V portable DATE OF EXAM: 06/26/2024 5:48 AM CLINICAL INDICATION: Male, 68 years old with history of Postop CABG; COMPARISON: Chest radiographs from06/25/2024 TECHNIQUE: XR chest 1V portable Frontal view of the chest. FINDINGS: Lungs/Pleura: No evidence of focal consolidation or pneumothorax. Blunting of the costophrenic angles is present. Pulmonary vascularity: Pulmonary vascular congestion. Heart/mediastinum: Cardiomediastinal silhouette is unremarkable. Atherosclerotic calcifications are seen in the aorta. Left atrial appendage occlusion device is present. Musculoskeletal: No acute osseous pathology. Midline sternotomy wires are noted. Other findings: None Lines/Tubes: Left thoracotomy tube is present without evidence of pneumothorax. There is a [place]-Nate catheter with tip projecting over the spine. Additional lead projecting over the left aspect of the heart. IMPRESSION: Post surgical changes with mild pulmonary edema and cardiomegaly. There may be trace bilateral pleura l effusions. [facility], , 06/26/2024 7:35 AM
--- NOTE | 2024-06-26 07:53 | P.PN ---
Subjective Progress Note Date: 06/26/24 Principal diagnosis: Coronary artery disease with left main disease, STEMI this admission status post intra-aortic balloon placement, V-fib arrest x 2 with defibrillation, complete heart block status post temporary transvenous pacemaker placement, syncopal episode. History of dermatomyositis, hypothyroid and is a lifetime non-smoker. POD #3 Off-pump CABG x 3 with HILLS to LAD, left radial artery to intermediate, saphenous vein graft to posterior descending coronary artery with endovascular harvest of the saphenous vein from the right thigh and entire left lower extremity, endovascular harvest of the left radial artery, occlusion of the left atrial appendage with a 35 mm AtriCure clip. Removal of transfemoral venous temporary pacemaker and venous sheath. Status post removal of intra-aortic balloon pump. Postoperative acute blood loss anemia, expected given hemodilution. Oliguria, likely secondary to hypotension, requiring initiation of dopamine drip at 3 mcg/kg/min. The patient was seen and examined in follow-up today June 26, 2024 at his bedside in the intensive care unit. He is currently sitting up to the bedside chair, is awake, alert, oriented x 3 and is in no acute apparent distress. Denies any complaints of pain or shortness of breath at this time. He reports this is the best he is felt since surgery and feels less fatigued today. Dopamine drip continues infusing at 2.5 mcg/kg/min for renal perfusion. Metoprolol to tartrate was held last evening due to some hypotension. Right IJ cordis remains in place with continuous CVP monitoring, current CVP pressure is 12 mmHg. Oxygen saturations are 96% on room air and he is achieving 1250 mL on his incentive spirometry with encouragement. Bedside telemetry is showing normal sinus rhythm heart rate 71 bpm. Ventricular epicardial pacemaker wire remains in place and connected to bedside backup pacemaker generator on a VVI mode of 50 bpm. Left pleural chest tube remains in place to low continuous wall suction -20 cm H2O. No air leak is present. Draining thin serosanguineous drainage with 170 mL output in the last 8 hours and 370 mL output in the last 24 hours. The patient reports he has been up ambulating in the intensive care unit hallway with standby assistance from nursing and therapy staff and tolerating well. The patient's is present at his bedside. Queen catheter remains in place for accurate I's and O's with 850 mL of urine output in the last 8 hours. Chest x-ray and laboratory results were reviewed. Objective - Vital Signs Vital signs: Vital Signs Temp 98.9 F 06/26/24 00:00 Pulse 71 06/26/24 07:00 Resp 20 06/26/24 07:00 BP 96/62 06/26/24 07:00 Pulse Ox 93 L 06/26/24 07:00 FiO2 40 06/23/24 18:15 Intake & Output 06/25/24 06/26/24 06/26/24 18:59 06:59 18:59 Intake Total 1273.924 883.148 36 Output Total 645 1665 120 Balance 628.924 -781.852 -84 Weight 111.2 kg Intake: IV 396 432 36 0.9 @ KVO 300 30 Sodium Chloride 0.9% 1, 330 60 000 ml @ 30 mls/hr IV . Q24H [facility] Rx#:[id number] pressure bags 66 72 6 Intake, IV Titration 527.924 101.148 Amount Albumin Human 5% 250 ml 500 In Empty Bag 1 bag @ 250 mls/hr IVPB Q1HR PRN Rx#: [id number] DOPamine DRIP 800 mg In 27.924 101.148 Dextrose/Water 1 250ml. bag @ 3 MCG/KG/MIN 5.991 mls/hr IV .Q24H [facility] Rx#: [id number] Oral 350 350 Output: Chest Tube Drainage 120 380 20 Chest Tube Left 110 380 20 Chest Tube Mediastinal 10 Urine 525 1285 100 Other: Voiding Method Indwelling Catheter Indwelling Catheter ABP, PAP, CO, CI - Last Documented Arterial Blood Pressure 94/46 Pulmonary Artery Pressure 23/8 Cardiac Output 5.1 Cardiac Index 2.3 - Exam CONSTITUTIONAL: Sitting up to the bedside chair in the intensive care unit, appears comfortable, cooperative, no apparent acute distress. HEENT: Neck is supple, no JVD, no lymphadenopathy. Right IJ Cordis in place and functioning. RESPIRATORY: Lungs sounds essentially clear throughout, diminished to his bilateral bases, few scattered crackles to his left lower lobe. Respirations are symmetrical and nonlabored. Currently on room air with oxygen saturations 96%. Able to achieve 1250 mL on his incentive spirometry. Strong cough. CARDIOVASCULAR: Regular rhythm and rate. S1 and S2 present, negative for S3, gallop or murmur. Sternum is stable. Normal sinus rhythm heart rate 71 bpm on bedside telemetry. Palpable peripheral pulses bilaterally. No calf pain or tenderness noted. Heart hugger in place with patient demonstrating appropriate use. Knee-high LISA hose and sequential compression devices in place to his b ilateral lower extremities. GASTROINTESTINAL: Abdomen soft, nontender, nondistended. Active bowel sounds present 4 quadrants. Tolerating diet. Passing flatus. No guarding or rigidity. GENITOURINARY: Queen present draining clear, yellow urine. Urine output 855 mL in the last 8 hours. INTEGUMENTARY: Skin is warm and dry with no evidence of clubbing or cyanosis. Midline sternal incision clean dry and well approximated, covered with dry intact dressing. Bilateral lower extremity EVH sites well approximated without redness or drainage. Left arm radial artery harvest sites clean, dry and approximated. No drainage or redness is present. NEUROLOGIC: Cranial nerves II through XII intact. No focal deficits. MUSKULOSKELETAL: Able to move all extremities, strength equal bilaterally, ge neralized weakness. PSYCHIATRIC: Alert and oriented to person place and time, appropriate affect, i ntact judgment and insight. INVASIVE LINES AND TUBES: Left pleural chest tube present and connected to low continuous wall suction, no air leaks present. Left pleural chest tube with 170 mL of thin serosanguineous drainage overnight, 370 mL output in the last 24 hours. Ventricular epicardial pacemaker wires present, connected to generator, VVI backup rate 50 bpm. Right internal jugular Cordis, right radial arterial line present. Current CVP 12 mmHg. - Allied health notes Allied health notes reviewed: nursing - Labs CBC & Chem 7: 06/26/24 05:00 06/26/24 05:00 Labs: Abnormal Lab Results - Last 24 Hours (Table) 06/25/24 06/25/24 06/25/24 Range/Units 09:01 11:31 16:37 RBC (4.30-5.90) m/uL Hgb (13.0-17.5) gm/dL Hct (39.0-53.0) % Sodium (137-145) mmol/L Chloride (98-107) mmol/L POC Glucose (mg/dL) 134 H 127 H 123 H (70-110) mg/dL Total Protein (6.3-8.2) g/dL Albumin (3.5-5.0) g/dL 06/25/24 06/26/24 06/26/24 Range/Units 20:51 05:00 05:00 RBC 2.84 L (4.30-5.90) m/uL Hgb 8.8 L (13.0-17.5) gm/dL Hct 26.0 L (39.0-53.0) % Sodium 135 L (137-145) mmol/L Chloride 109 H (98-107) mmol/L POC Glucose (mg/dL) 133 H (70-110) mg/dL Total Protein 5.1 L (6.3-8.2) g/dL Albumin 3.2 L (3.5-5.0) g/dL - Imaging and Cardiology Chest x-ray: report reviewed, image reviewed Assessment and Plan Assessment: Coronary artery disease with left main disease, STEMI this admission status post intra-aortic balloon placement, status post three-vessel off-pump coronary artery bypass grafting surgery and subsequent removal of intra-aortic balloon pump V-fib arrest x 2 with defibrillation Complete heart block status post temporary transvenous pacemaker placement Syncopal episode Oliguria, likely secondary to hypotension, requiring initiation of dopamine drip at 2.5 mcg/kg/min History of dermatomyositis, on Cellcept outpatient, last dose 06/20 Hypothyroid, TSH 33.8, T4 1.32 Plan: Continue aspirin, statin, Plavix and beta-willie. Continue metoprolol tartrate 12.5 mg p.o. twice daily with hold parameters. Continue dopamine drip at 2.5 mcg/kg/min. Will add calcium channel willie amlodipine when blood pressure is able to tolerate for radial artery spasm prophylaxis. Encourage incentive spirometry use 10 times every hour while awake. Bronchodilators per pulmonology. Increase activity as tolerated, PT/OT/cardiac rehab following. Will monitor daily labs and chest x-rays. Electrolyte replacement per protocol. GI/DVT prophylaxis. Pain control per current medication regimen. Insulin management per internal medicine. Patient is not a diabetic, pr eoperative hemoglobin A1c was 5.5%, needs tight blood sugar control. Should remain on continuous IV insulin for 48 hours, then may transition to subcutaneous per protocol. Remove right radial arterial line. Remove right IJ cordis. Continue left pleural chest tube for another 24 hours, monitor output. Place chest tube to waterseal Remove Queen catheter. Continue to monitor and record strict accurate intake and output. May bladder scan every 6 hours and as needed postvoid residual, straight cath for greater than 300 mL of PVR. Continue levothyroxine 250 mcg p.o. daily and home dose of gabapentin 800 mg p.o. nightly. More recommendations to follow based on patient's clinical course. Time with Patient: Greater than 30
--- NOTE | 2024-06-26 09:56 | P.PN ---
Subjective Progress Note Date: 06/26/24 HISTORY OF PRESENTING ILLNESS 68-year-old male with past medical history of dermatomyositis, autoimmune di sease presented to the hospital because of substernal chest pressure which was associated with diaphoresis while he was driving. EMS was called and they performed an ECG which showed concerns of ST elevations in inferior lead along with complete heart block. He denies any prior cardiac history stroke [place], diabetes or any bleeding diathesis. Social history: Patient is denies any history of smoking, recreational drug use marijuana use or alcohol use Family history : Patient denies any family Struve premature coronary artery disease Progress note June 21, 2024 Patient is evaluated in ICU, IABP in place augmenting appropriately, patient is intermittently paced and has an intrinsic rhythm better as compared to yesterday. Hemoglobin 14.7, BUN 18, creatinine 0.9 Blood pressure is better, not requiring any pressors. Denies any active chest pain chest pressure. IV heparin drip infusing. June 24, 2024 Postop day 1 status post CABG. Coming along well. Has pleural chest tubes and mediastinal chest tube, epicardial pacer, right radial A-line, Queen catheter can right IJ cordis with [place]-Nate catheter in place. Cardiac output 6.7, cardiac index 3, PA pressure 26/8, CVP 5, Chest x-ray and labs were reviewed. Amiodarone drip infusing. June 26, 2024 Postop day 3 status post CABG. Patient is doing well. Has pleural chest tubes and mediastinal chest tube, epicardial pacer, right radial A-line, Queen catheter and right IJ cordis with [place]-Nate catheter in place. Chest x-ray and labs were reviewed. PHYSICAL EXAMINATION Vital signs reviewed. Head: Normocephalic. Eyes: Sclerae nonicteric. Neck: Brisk carotid upstroke, no jugular venous distention. Lungs: Clear to auscultation. Heart: Regular rate and rhythm, S1-S2, no S3, no murmur or rub. Abdomen: Soft nontender, positive bowel sounds. Extremities: No lower extremity edema bilaterally. Neuro: Alert, oritented, no focal deficits. Detailed neuro exam was not performed. ASSESSMENT Inferior STEMI Multivessel CAD involving distal left main 90%, proximal RCA 90% Status post CABG, HILLS to LAD, left radial to ramus, SVG to PDA, 35mm atrial clip Cardiac testing Admission ECG shows complete heart block, heart rate 48 beats minute with A-V dissociation, ST elevations in inferior lead along with rest elevations in an teroseptal leads along with lateral obstruction. Echocardiogram showed an EF of 50 to 55% with no significant regional wall motion abnormality, normal RV size and systolic function. RV function is improved as compared to bedside echocardiogram done prior to his cardiac catheterization. Cardiac catheterization showed distal left main 90% stenosis, proximal RCA 90% stenosis, 90% proximal LAD stenosis, moderate diffuse disease in diagonal artery, Plan Patient is coming along well hemodynamically. Not requiring pressors, intrinsic heart rate around 60 beats minute, no reported arrhythmias. Medications as per CT surgery team Cardiology team will continue to follow, continue current meds, encourage incentive spirometry. Conservative management as per the ICU team Objective - Vital Signs Vital signs: Vital Signs Temp 98.6 F 06/26/24 08:00 Pulse 71 06/26/24 09:00 Resp 17 06/26/24 09:00 BP 117/67 06/26/24 08:30 Pulse Ox 98 06/26/24 09:00 FiO2 40 06/23/24 18:15 Intake & Output 06/25/24 06/26/24 06/26/24 18:59 06:59 18:59 Intake Total 1273.924 883.148 134.061 Output Total 645 1665 190 Balance 628.924 -781.852 -55.939 Weight 111.2 kg Intake: IV 396 432 108 0.9 @ KVO 300 90 Sodium Chloride 0.9% 1, 330 60 000 ml @ 20 mls/hr IV . Q24H [facility] Rx#:[id number] pressure bags 66 72 18 Intake, IV Titration 527.924 101.148 26.061 Amount Albumin Human 5% 250 ml 500 In Empty Bag 1 bag @ 250 mls/hr IVPB Q1HR [facility] Rx#: [id number] DOPamine DRIP 800 mg In 27.924 101.148 26.061 Dextrose/Water 1 250ml. bag @ 3 MCG/KG/MIN 5.991 mls/hr IV .Q24H [facility] Rx#: [id number] Oral 350 350 Output: Chest Tube Drainage 120 380 50 Chest Tube Left 110 380 50 Chest Tube Mediastinal 10 Urine 525 1285 140 Other: Voiding Method Indwelling Catheter Indwelling Catheter ABP, PAP, CO, CI - Last Documented Arterial Blood Pressure 95/46 Pulmonary Artery Pressure 23/8 Cardiac Output 5.1 Cardiac Index 2.3 - Labs CBC & Chem 7: 06/26/24 05:00 06/26/24 05:00 Labs: Abnormal Lab Results - Last 24 Hours (Table) 06/25/24 06/25/24 06/25/24 Range/Units 11:31 16:37 20:51 RBC (4.30-5.90) m/uL Hgb (13.0-17.5) gm/dL Hct (39.0-53.0) % Sodium (137-145) mmol/L Chloride (98-107) mmol/L POC Glucose (mg/dL) 127 H 123 H 133 H (70-110) mg/dL Total Protein (6.3-8.2) g/dL Albumin (3.5-5.0) g/dL 06/26/24 06/26/24 Range/Units 05:00 05:00 RBC 2.84 L (4.30-5.90) m/uL Hgb 8.8 L (13.0-17.5) gm/dL Hct 26.0 L (39.0-53.0) % Sodium 135 L (137-145) mmol/L Chloride 109 H (98-107) mmol/L POC Glucose (mg/dL) (70-110) mg/dL Total Protein 5.1 L (6.3-8.2) g/dL Albumin 3.2 L (3.5-5.0) g/dL
--- NOTE | 2024-06-26 10:46 | P.PN ---
Subjective Progress Note Date: 06/26/24 Subjective: Patient seen and examined at bedside. Remains on dopamine drip. Pertinent positives and negatives as discussed above, a complete review of systems was performed and all other systems are negative. Vitals Signs Reviewed. General: Nontoxic, no distress, appears at stated age, chest tube in place, Queen catheter in place Derm: Warm, dry Head: Atraumatic, normocephalic, symmetric Eyes: EOMI, no lid lag, anicteric sclera Mouth: No lip lesion, mucus membranes moist Cardiovascular: S1S2 reg, no murmur Lungs: CTA bilateral, no rhonchi, no rales, no accessory muscle use Abdominal: Soft, nontender to palpation, no guarding, no appreciable organomegaly Ext: No gross muscle atrophy, no edema, no contractures Neuro: CN II-XI grossly intact, no focal neuro deficits Psych: Alert, oriented, appropriate affect Data Reviewed Today: Pertinent Labs: WBC 10.2, hemoglobin 8.8, creatinine 1.04, blood sugars range between 97-1 33 Imaging: Chest x-ray independently interpreted shows bilateral interstitial opacities, slightly improved from yesterday Assessment and Plan: #Status post CABG X3 # STEMI S/P intra-aortic balloon placement and removal #Multivessel CAD #V-fib s/p defibrillation #Complete heart block Cardiogenic shock Acute kidney injury, resolving Acute blood loss anemia, anticipated outcome of surgery Continue aspirin 325 mg daily, Plavix 75 daily and Lipitor 40 mg daily, metoprolol 12.5 twice daily, amiodarone [address] surgery note reviewed, patient on dopamine drip, wean pressors, likely keep chest tube for another 24 hours, likely remove Queen catheter today -Patient also on midodrine 10 AC 3 times daily -Continue to monitor renal function -Pulmonology following -Cardiology note reviewed, continue current management #Hyperglycemia -Subcu insulin ACH S, monitor for hypoglycemia # Subclinical hypothyroidism -TSH 33.8, free T4 1.32. -Continue Synthroid 250 mcg daily, increased by CT surgery Neuropathy -Gabapentin 800 nightly Dermatomyositis -Holding CellCept Thank you for allowing us to participate in the care of this pleasant patient. Do not hesitate to contact us with questions. Someone can be reached from the [facility] hospitalist group all hours of the day at [phone] or via perfect serve. Objective - Vital Signs Vital signs: Vital Signs Temp 98.6 F 06/26/24 08:00 Pulse 71 06/26/24 10:00 Resp 25 H 06/26/24 10:00 BP 107/69 06/26/24 10:00 Pulse Ox 95 06/26/24 10:00 FiO2 40 06/23/24 18:15 Intake & Output 06/25/24 06/26/24 06/26/24 18:59 06:59 18:59 Intake Total 1273.924 883.148 170.061 Output Total 645 1665 240 Balance 628.924 -781.852 -69.939 Weight 111.2 kg Intake: IV 396 432 144 0.9 @ KVO 300 120 Sodium Chloride 0.9% 1, 330 60 000 ml @ 20 mls/hr IV . Q24H [facility] Rx#:[id number] pressure bags 66 72 24 Intake, IV Titration 527.924 101.148 26.061 Amount Albumin Human 5% 250 ml 500 In Empty Bag 1 bag @ 250 mls/hr IVPB Q1HR PRN Rx#: [id number] DOPamine DRIP 800 mg In 27.924 101.148 26.061 Dextrose/Water 1 250ml. bag @ 3 MCG/KG/MIN 5.991 mls/hr IV .Q24H [facility] Rx#: [id number] Oral 350 350 Output: Chest Tube Drainage 120 380 70 Chest Tube Left 110 380 70 Chest Tube Mediastinal 10 Urine 525 1285 170 Other: Voiding Method Indwelling Catheter Indwelling Catheter ABP, PAP, CO, CI - Last Documented Arterial Blood Pressure 103/48 Pulmonary Artery Pressure 23/8 Cardiac Output 5.1 Cardiac Index 2.3 - Labs CBC & Chem 7: 06/26/24 05:00 06/26/24 05:00 Labs: Abnormal Lab Results - Last 24 Hours (Table) 06/25/24 06/25/24 06/25/24 Range/Units 11:31 16:37 20:51 RBC (4.30-5.90) m/uL Hgb (13.0-17.5) gm/dL Hct (39.0-53.0) % Sodium (137-145) mmol/L Chloride (98-107) mmol/L POC Glucose (mg/dL) 127 H 123 H 133 H (70-110) mg/dL Total Protein (6.3-8.2) g/dL Albumin (3.5-5.0) g/dL 06/26/24 06/26/24 Range/Units 05:00 05:00 RBC 2.84 L (4.30-5.90) m/uL Hgb 8.8 L (13.0-17.5) gm/dL Hct 26.0 L (39.0-53.0) % Sodium 135 L (137-145) mmol/L Chloride 109 H (98-107) mmol/L POC Glucose (mg/dL) (70-110) mg/dL Total Protein 5.1 L (6.3-8.2) g/dL Albumin 3.2 L (3.5-5.0) g/dL
[2024-06-26 11:56] LABS: Glucose,Whole Blood 111 mg/dL (70-110)
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
[2024-06-26 16:27] LABS: Glucose,Whole Blood 123 mg/dL (70-110)
[2024-06-26 19:38] LABS: Glucose,Whole Blood 104 mg/dL (70-110)
[2024-06-26] MEDS: BENZOCAINE/MENTHOL LOZENG 1 EACH LOZENGE MUCOUS MEM PRN (23:47)
[2024-06-27 06:44] LABS: Basophils % (A) 0 %; Eosinophils # (A) 0.3 k/uL (0-0.7); Eosinophils % (A) 3 %; HCT 30.9 % (39.0-53.0); HGB 9.6 gm/dL (13.0-17.5); Lymphocytes # (A) 1.2 k/uL (1.0-4.8); Lymphocytes % (A) 13 %; MCH 29.6 pg (25.0-35.0); MCHC 31.2 g/dL (31.0-37.0); MCV 94.7 fL (80.0-100.0); Mean Platelet Volume 8.6; Monocytes # (A) 0.7 k/uL (0-1.0); Monocytes % (A) 8 %; Neutrophils # (A) 6.9 k/uL (1.3-7.7); Neutrophils % (A) 74 %; Platelet Count 315 k/uL (150-450); RBC 3.26 m/uL (4.30-5.90); RDW 14.1 % (11.5-15.5); WBC 9.3 k/uL (3.8-10.6)
[2024-06-27 06:57] LABS: ALT 18 U/L (4-49); AST 28 U/L (17-59); African American GFR (CKD) >90 (>60 ml/min/1.73 sqM); Albumin 3.4 g/dL (3.5-5.0); Alkaline Phosphatase 126 U/L (38-126); Anion Gap 6 mmol/L; Blood Urea Nitrogen 20 mg/dL (9-20); Calcium 8.6 mg/dL (8.4-10.2); Carbon Dioxide 24 mmol/L (22-30); Chloride 106 mmol/L (98-107); Glucose 107 mg/dL (74-99); Magnesium 2.1 mg/dL (1.6-2.3); Non-African American GFR(CKD) 80 (>60 ml/min/1.73 sqM); Potassium 3.9 mmol/L (3.5-5.1); Sodium 136 mmol/L (137-145); Total Bilirubin 0.9 mg/dL (0.2-1.3); Total Protein 5.4 g/dL (6.3-8.2)
[2024-06-27] MEDS ORDERED: Potassium Replacement Protocol 1 EACH MISC MISCELLANE PRN (06:59)
--- NOTE | 2024-06-27 08:05 | XR ---
EXAMINATION TYPE: XR chest 1V portable DATE OF EXAM: 06/27/2024 5:45 AM CLINICAL INDICATION: Male, 68 years old with history of Postop CABG; [facility] COMPARISON: Chest radiograph from one day prior. TECHNIQUE: XR chest 1V portable Frontal view of the chest. FINDINGS: Lungs/Pleura: Small left apical pneumothorax noted. No definitive right apical pneumothorax.. Bluntin g of the costophrenic angles is present. Pulmonary vascularity: Pulmonary vascular congestion. Heart/mediastinum: Cardiomediastinal silhouette is unremarkable. Atherosclerotic calcifications are seen in the aorta. Left atrial appendage occlusion device is present. Musculoskeletal: No acute osseous pathology. Midline sternotomy wires are noted. Other findings: None Lines/Tubes: Left thoracotomy tube is present without evidence of pneumothorax. There is a [place]ate catheter with tip projecting over the spine. Additional lead projecting over the left aspect of the heart. IMPRESSION: 1. Small left apical pneumothorax,. 2. surgical changes with mild pulmonary edema and cardiomegaly. There may be trace bilateral pleural effusions. [facility], , 06/27/2024 8:02 AM
[2024-06-27] MEDS: TAMSULOSIN 0.4 MG CAP.ER.24H PO SCH (08:13)
[2024-06-27] MEDS: POTASSIUM CHLORIDE ER 20 MEQ TAB.ER PO SCH (08:13)
[2024-06-27] MEDS: PANTOPRAZOLE 40 MG TABLET PO SCH (08:15)
--- NOTE | 2024-06-27 09:45 | P.PN ---
Subjective Progress Note Date: 06/27/24 Principal diagnosis: Coronary artery disease with left main disease, STEMI this admission status post intra-aortic balloon placement, V-fib arrest x 2 with defibrillation, complete heart block status post temporary transvenous pacemaker placement, syncopal episode. History of dermatomyositis, hypothyroid and is a lifetime non-smoker. POD #4 Off-pump CABG x 3 with HILLS to LAD, left radial artery to intermediate, saphenous vein graft to posterior descending coronary artery with endovascular harvest of the saphenous vein from the right thigh and entire left lower extremity, endovascular harvest of the left radial artery, occlusion of the left atrial appendage with a 35 mm AtriCure clip. Removal of transfemoral venous temporary pacemaker and venous sheath. Status post removal of intra-aortic balloon pump. Postoperative acute blood loss anemia, expected given hemodilution. Oliguria, likely secondary to hypotension, requiring initiation of dopamine drip at 3 mcg/kg/min, Dopamine is off. The patient was seen and examined in follow-up today June 27, 2024 at his [facility] in the intensive care unit. He is currently sitting up to the bedside chair, is awake, alert, oriented x 3 and is in no acute apparent distress. He denies any complaints of pain or shortness of breath at this time. He remains on dopamine drip at 2 mcg/kg/min for renal perfusion, urine output in the last 8 hours was 700 mL. Oxygen saturations are 97% on room air and he is achieving 1500 mL on his incentive spirometry with encouragement. Bedside telemetry showing normal sinus rhythm heart rate 77 bpm. Right IJ cordis remains in place with continuous CVP monitoring, current CVP pressure 6 mmHg. Left pleural chest tube remains in place to waterseal. No air leak is present. Draining thin serosanguineous drainage with 110 mL output in the last 8 hours and 300 mL output in the last 24 hours. The patient did experience some urine retention throughout the night requiring a straight catheterization for 400 mL of urine, Flomax 0.4 mg p.o. daily has been initiated. Laboratory and chest x-ray results were reviewed. Objective - Vital Signs Vital signs: Vital Signs Temp 98.1 F 06/27/24 08:00 Pulse 75 06/27/24 09:00 Resp 18 06/27/24 09:00 BP 104/63 06/27/24 09:00 Pulse Ox 97 06/27/24 09:00 FiO2 40 06/23/24 18:15 Intake & Output 06/26/24 06/27/24 06/27/24 18:59 06:59 18:59 Intake Total 437.061 746 439.116 Output Total 420 830 0 Balance 17.061 -84 439.116 Weight 112.2 kg Intake: IV 411 396 99 0.9 @ KVO 360 360 90 pressure bags 51 36 9 Intake, IV Titration .06 100.116 Amount DOPamine DRIP 800 mg In .06 100.116 Dextrose/Water 1 250ml. bag @ 3 MCG/KG/MIN 5.991 mls/hr IV [facility] Rx#: [id number] Oral 350 240 Output: Chest Tube Drainage 220 130 0 Chest Tube Left 220 130 0 Urine 200 700 Other: Voiding Method Indwelling Catheter Urinal ABP, PAP, CO, CI - Last Documented Arterial Blood Pressure 95/48 Pulmonary Artery Pressure 23/8 Cardiac Output 5.1 Cardiac Index 2.3 - Exam CONSTITUTIONAL: Sitting up to the bedside chair in the intensive care unit, appears comfortable, cooperative, no apparent acute distress. HEENT: Neck is supple, no JVD, no lymphadenopathy. Right IJ Cordis in place and functioning. RESPIRATORY: Lungs sounds essentially clear throughout, diminished to his bilateral bases, few scattered crackles to his left lower lobe. Respirations are symmetrical and nonlabored. Currently on room air with oxygen saturations 97%. Able to achieve 1500 mL on his incentive spirometry. Strong cough. CARDIOVASCULAR: Regular rhythm and rate. S1 and S2 present, negative for S3, gallop or murmur. Sternum is stable. Normal sinus rhythm heart rate 77 bpm on bedside telemetry. Palpable peripheral pulses bilaterally. No calf pain or tenderness noted. Heart hugger in place with patient demonstrating appropriate use. Knee-high LISA hose and sequential compression devices in place to his bilateral lower extremities. GASTROINTESTINAL: Abdomen soft, nontender, nondistended. Active bowel sounds present 4 quadrants. Tolerating diet. Passing flatus. No guarding or rigi dity. GENITOURINARY: Continues to void. Urine output 700 mL in the last 8 hours. INTEGUMENTARY: Skin is warm and dry with no evidence of clubbing or cyanosis. Midline sternal incision clean dry and well approximated, covered with dry intact dressing. Bilateral lower extremity EVH sites well approximated without redness or drainage. Left arm radial artery harvest sites clean, dry and approximated. No drainage or redness is present. NEUROLOGIC: Cranial nerves II through XII intact. No focal deficits. MUSKULOSKELETAL: Able to move all extremities, strength equal bilaterally, generalized weakness. PSYCHIATRIC: Alert and oriented to person place and time, appropriate affect, intact judgment and insight. INVASIVE LINES AND TUBES: Left pleural chest tube present and is to waterseal, no air leaks present. Left pleural chest tube with 110 mL of thin serosanguineous drainage overnight, 300 mL output in the last 24 hours. Ventricular epicardial pacemaker wires present, connected to generator, VVI backup rate 50 bpm. Right internal jugular Cordis, current CVP 6 mmHg. - Allied health notes Allied health notes reviewed: nursing - Labs CBC & Chem 7: 06/27/24 06:25 06/27/24 06:25 Labs: Abnormal Lab Results - Last 24 Hours (Table) 06/26/24 06/26/24 06/27/24 Range/Units 11:54 16:25 06:25 RBC 3.26 L (4.30-5.90) m/uL Hgb 9.6 L (13.0-17.5) gm/dL Hct 30.9 L (39.0-53.0) % Sodium (137-145) mmol/L Glucose (74-99) mg/dL POC Glucose (mg/dL) 111 H 123 H (70-110) mg/dL Total Protein (6.3-8.2) g/dL Albumin (3.5-5.0) g/dL 06/27/24 Range/Units 06:25 RBC (4.30-5.90) m/uL Hgb (13.0-17.5) gm/dL Hct (39.0-53.0) % Sodium 136 L (137-145) mmol/L Glucose 107 H (74-99) mg/dL POC Glucose (mg/dL) (70-110) mg/dL Total Protein 5.4 L (6.3-8.2) g/dL Albumin 3.4 L (3.5-5.0) g/dL - Imaging and Cardiology Chest x-ray: report reviewed, image reviewed Assessment and Plan Assessment: Coronary artery disease with left main disease, STEMI this admission status post intra-aortic balloon placement, status post three-vessel off-pump coronary artery bypass grafting surgery and subsequent removal of intra-aortic balloon pump V-fib arrest x 2 with defibrillation Complete heart block status post temporary transvenous pacemaker placement Syncopal episode Oliguria, likely secondary to hypotension, requiring initiation of dopamine drip at 2 mcg/kg/min History of dermatomyositis, on Cellcept outpatient, last dose 06/20 Hypothyroid, TSH 33.8, T4 1.32 Plan: Continue aspirin, statin, Plavix and beta-willie. Continue metoprolol tartrate 12.5 mg p.o. twice daily with hold parameters. Discontinue dopamine drip. Will add calcium channel willie amlodipine when blood pressure is able to tolerate for radial artery spasm prophylaxis. Encourage incentive spirometry use 10 times every hour while awake. Bronchodilators per pulmonology. Increase activity as tolerated, PT/OT/cardiac rehab following. Will monitor daily labs and chest x-rays. Electrolyte replacement per protocol. GI/DVT prophylaxis. Pain control per current medication regimen. Insulin management per internal medicine. Patient is not a diabetic, preoperative hemoglobin A1c was 5.5%, needs tight blood sugar control. Remove right IJ cordis. Remove left pleural chest tube. Continue to monitor and record strict accurate intake and output. May bladder scan every 6 hours and as needed postvoid residual, straight cath for greater than 300 mL of PVR. Flomax 0.4 mg p.o. daily started for some urine retention throughout the night. Continue levothyroxine 250 mcg p.o. daily and home dose of gabapentin 800 mg p.o. nightly. Keep in ICU for another 24 hours, likely transferred to third floor cardiac juany pdown unit tomorrow June 28, 2024. Discharge planning is in place, anticipate discharge home with home health care in the next 48 hours. More recommendations to follow based on patient's clinical course. Time with Patient: Greater than 30
--- NOTE | 2024-06-27 10:47 | P.PN ---
Subjective Progress Note Date: 06/27/24 Subjective: Patient seen and examined at bedside. No acute events overnight. Off of pressors. Pertinent positives and negatives as discussed above, a complete review of systems was performed and all other systems are negative. Vitals Signs Reviewed. General: Nontoxic, no distress, appears at stated age Derm: Warm, dry Head: Atraumatic, normocephalic, symmetric Eyes: EOMI, no lid lag, anicteric sclera Mouth: No lip lesion, mucus membranes moist Cardiovascular: S1S2 reg, no murmur Lungs: CTA bilateral, no rhonchi, no rales, no accessory muscle use Abdominal: Soft, nontender to palpation, no guarding, no appreciable organomegaly Ext: No gross muscle atrophy, no edema, no contractures Neuro: CN II-XI grossly intact, no focal neuro deficits Psych: Alert, oriented, appropriate affect Data Reviewed Today: Pertinent Labs: WBC 9.3, hemoglobin 11.6, sodium 136, blood sugars range between 10 4-1 23, creatinine 0.96 Imaging: Chest x-ray independently interpreted shows bilateral interstitial opacities, apical pneumothorax on the left slightly improved from yesterday Assessment and Plan: #Status post CABG X3 # STEMI S/P intra-aortic balloon placement and removal #Multivessel CAD #V-fib s/p defibrillation #Complete heart block Cardiogenic shock Acute kidney injury, resolving Acute blood loss anemia, anticipated outcome of surgery Left apical pneumothorax -Continue aspirin 325 mg daily, Plavix 75 daily and Lipitor 40 mg daily, metoprolol 12.5 twice daily, amiodarone 400 twice daily -CT surgery note reviewed, likely discharge in 48 hours -Patient also on midodrine 10 AC 3 times daily -Continue to monitor renal function -Pulmonology and cardiology following #Hyperglycemia -Subcu insulin ACH S, monitor for hypoglycemia # Subclinical hypothyroidism -TSH 33.8, free T4 1.32. -Continue Synthroid 250 mcg daily, increased by CT surgery -Patient will need TSH rechecked in 4 weeks Neuropathy -Gabapentin 800 nightly Dermatomyositis -Holding CellCept Thank you for allowing us to participate in the care of this pleasant patient. Do not hesitate to contact us with questions. Someone can be reached from the [facility] hospitalist group all hours of the day at [phone] or via perfect serve. Objective - Vital Signs Vital signs: Vital Signs Temp 98.1 F 06/27/24 08:00 Pulse 66 06/27/24 10:00 Resp 23 06/27/24 10:00 BP 98/73 06/27/24 10:00 Pulse Ox 96 06/27/24 10:00 FiO2 40 06/23/24 18:15 Intake & Output 06/26/24 06/27/24 06/27/24 18:59 06:59 18:59 Intake Total 437.061 746 472.116 Output Total 420 830 0 Balance 17.061 -84 472.116 Weight 112.2 kg Intake: IV 411 396 132 0.9 @ KVO 360 360 120 pressure bags 51 36 12 Intake, IV Titration 26.061 100.116 Amount DOPamine DRIP 800 mg In 26.061 100.116 Dextrose/Water 1 250ml. bag @ 3 MCG/KG/MIN 5.991 mls/hr IV .Q24H [facility] Rx#: [id number] Oral 350 240 Output: Chest Tube Drainage 220 130 0 Chest Tube Left 220 130 0 Urine 200 700 Other: Voiding Method Indwelling Catheter Urinal ABP, PAP, CO, CI - Last Documented Arterial Blood Pressure 95/48 Pulmonary Artery Pressure 23/8 Cardiac Output 5.1 Cardiac Index 2.3 - Labs CBC & Chem 7: 06/27/24 06:25 06/27/24 06:25 Labs: Abnormal Lab Results - Last 24 Hours (Table) 06/26/24 06/26/24 06/27/24 Range/Units 11:54 16:25 06:25 RBC 3.26 L (4.30-5.90) m/uL Hgb 9.6 L (13.0-17.5) gm/dL Hct 30.9 L (39.0-53.0) % Sodium (137-145) mmol/L Glucose (74-99) mg/dL POC Glucose (mg/dL) 111 H 123 H (70-110) mg/dL Total Protein (6.3-8.2) g/dL Albumin (3.5-5.0) g/dL 06/27/24 Range/Units 06:25 RBC (4.30-5.90) m/uL Hgb (13.0-17.5) gm/dL Hct (39.0-53.0) % Sodium 136 L (137-145) mmol/L Glucose 107 H (74-99) mg/dL POC Glucose (mg/dL) (70-110) mg/dL Total Protein 5.4 L (6.3-8.2) g/dL Albumin 3.4 L (3.5-5.0) g/dL
[2024-06-27 11:40] LABS: Glucose,Whole Blood 117 mg/dL (70-110)
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
[2024-06-27 16:37] LABS: Glucose,Whole Blood 121 mg/dL (70-110)
[2024-06-27] MEDS: TETRAHYDROZOLINE 0.05% OPHTH DROPS 15 ML BTL BOTH EYES PRN (16:46)
[2024-06-27 21:21] LABS: Glucose,Whole Blood 104 mg/dL (70-110)
[2024-06-28 04:58] LABS: HGB 8.9 gm/dL (13.0-17.5); MCHC 32.9 g/dL (31.0-37.0); MCV 94.2 fL (80.0-100.0); Mean Platelet Volume 7.9; Platelet Count 318 k/uL (150-450); RBC 2.87 m/uL (4.30-5.90); RDW 13.9 % (11.5-15.5); WBC 8.6 k/uL (3.8-10.6)
[2024-06-28 05:05] LABS: African American GFR (CKD) >90 (>60 ml/min/1.73 sqM); Anion Gap 6 mmol/L; Blood Urea Nitrogen 20 mg/dL (9-20); Calcium 8.5 mg/dL (8.4-10.2); Carbon Dioxide 23 mmol/L (22-30); Chloride 106 mmol/L (98-107); Glucose 95 mg/dL (74-99); Non-African American GFR(CKD) 79 (>60 ml/min/1.73 sqM); Potassium 4.2 mmol/L (3.5-5.1); Sodium 135 mmol/L (137-145)
--- NOTE | 2024-06-28 07:39 | XR ---
EXAMINATION TYPE: XR chest 2V DATE OF EXAM: 06/28/2024 6:31 AM CLINICAL INDICATION: Male, 68 years old with history of Postop CABG; [facility] COMPARISON: Chest radiograph from one day prior. TECHNIQUE: XR chest 2V Frontal view of the chest. FINDINGS: Lungs/Pleura: Small left apical pneumothorax noted. No definitive right apical pneumothorax.. Bluntin g of the costophrenic angles is present. Pulmonary vascularity: Pulmonary vascular congestion. Heart/mediastinum: Cardiomediastinal silhouette is unremarkable. Atherosclerotic calcifications are seen in the aorta. Left atrial appendage occlusion device is present. Musculoskeletal: No acute osseous pathology. Midline sternotomy wires are noted. Other findings: None Lines/Tubes: Left thoracotomy tube is present without evidence of pneumothorax. There is a [place] catheter with tip projecting over the spine. Additional lead projecting over the left aspect of the heart. IMPRESSION: 1. Similar, Small left apical pneumothorax,. 2. Similar, surgical changes with mild pulmonary edema and cardiomegaly. There may be trace bilatera l pleural effusions. [facility], , 06/28/2024 7:36 AM
[2024-06-28] MEDS: bisacodyL 10 MG SUPP RECTAL PRN (08:14)
--- NOTE | 2024-06-28 08:15 | P.PN ---
Subjective Progress Note Date: 06/28/24 Principal diagnosis: Coronary artery disease with left main disease, STEMI this admission status post intra-aortic balloon placement, V-fib arrest x 2 with defibrillation, complete heart block status post temporary transvenous pacemaker placement, syncopal episode. History of dermatomyositis, hypothyroid and is a lifetime non-smoker. POD #5 Off-pump CABG x 3 with HILLS to LAD, left radial artery to intermediate, saphenous vein graft to posterior descending coronary artery with endovascular harvest of the saphenous vein from the right thigh and entire left lower extremity, endovascular harvest of the left radial artery, occlusion of the left atrial appendage with a 35 mm AtriCure clip. Removal of transfemoral venous temporary pacemaker and venous sheath. Status post removal of intra-aortic balloon pump. Postoperative acute blood loss anemia, expected given hemodilution. Oliguria, likely secondary to hypotension, requiring initiation of dopamine drip at 3 mcg/kg/min, Dopamine is off. The patient was seen and examined in follow-up today June 28, 2024 at his [facility] in the intensive care unit. He is currently sitting up to the bedside chair, is awake, alert, oriented x 3 and is in no acute apparent distress. He denies any complaints of pain or shortness of breath at this time. The patient is complaining of constipation and reports he was unable to void but 100 mL of urine in the last 8 hours. The patient reports in the past he has problems with urinating if he is constipated. He reports he has been up ambulating in the intensive care unit hallway with standby assistance from nursing and therapy staff and tolerating well. Denies any complaints of fatigue today, reports that he feels the best he has since surgery. Oxygen saturations are 99% on room air and he is achieving 1500 mL on his incentive spirometry with encouragement. Bedside telemetry is showing normal sinus rhythm heart rate 72 bpm. Blood pressure is currently 103/70 with a MAP of 79 mmHg. He remains hemodynamically stable and is currently on no inotropic or pressor support. Ventricular epicardial pacemaker wires are in place and grounded. Laboratory and chest x- ray results reviewed. Objective - Vital Signs Vital signs: Vital Signs Temp 98.3 F 06/28/24 04:00 Pulse 78 06/28/24 04:00 Resp 27 H 06/28/24 04:00 BP 103/70 06/28/24 04:00 Pulse Ox 96 06/28/24 04:00 FiO2 40 06/23/24 18:15 Intake & Output 06/27/24 06/28/24 06/28/24 18:59 06:59 18:59 Intake Total 778.116 540 Output Total 400 100 Balance 378.116 440 Weight 113 kg Intake: IV 198 0.9 @ KVO 180 pressure bags 18 Intake, IV Titration 100.116 Amount DOPamine DRIP 800 mg In 100.116 Dextrose/Water 1 250ml. bag @ 3 MCG/KG/MIN 5.991 mls/hr IV .Q24H [facility] Rx#: [id number] Oral 480 540 Output: Chest Tube Drainage 0 Chest Tube Left 0 Urine 400 100 Other: Voiding Method Indwelling Catheter Urinal ABP, PAP, CO, CI - Last Documented Arterial Blood Pressure 95/48 Pulmonary Artery Pressure 23/8 Cardiac Output 5.1 Cardiac Index 2.3 - Exam CONSTITUTIONAL: Sitting up to the bedside chair in the intensive care unit, appears comfortable, cooperative, no apparent acute distress. HEENT: Neck is supple, no JVD, no lymphadenopathy. RESPIRATORY: Lungs sounds essentially clear throughout, diminished to his bilateral bases. Respirations are symmetrical and nonlabored. Currently on room air with oxygen saturations 99%. Able to achieve 1500 mL on his incentive spirometry. Strong cough. CARDIOVASCULAR: Regular rhythm and rate. S1 and S2 present, negative for S3, gallop or murmur. Sternum is stable. Normal sinus rhythm heart rate 72 bpm on bedside telemetry. Palpable peripheral pulses bilaterally. No calf pain or t enderness noted. Heart hugger in place with patient demonstrating appropriate use. Knee-high LISA hose and sequential compression devices in place to his bilateral lower extremities. GASTROINTESTINAL: Abdomen soft, nontender, nondistended. Active bowel sounds present 4 quadrants. Tolerating diet. Passing flatus. No guarding or rigidity. Constipated. GENITOURINARY: Continues to void. Urine output 100 mL in the last 8 hours. INTEGUMENTARY: Skin is warm and dry with no evidence of clubbing or cyanosis. Midline sternal incision clean dry and well approximated, covered with dry intact dressing. Bilateral lower extremity EVH sites well approximated without redness or drainage. Left arm radial artery harvest sites clean, dry and approximated. No drainage or redness is present. NEUROLOGIC: Cranial nerves II through XII intact. No focal deficits. MUSKULOSKELETAL: Able to move all extremities, strength equal bilaterally, generalized weakness. PSYCHIATRIC: Alert and oriented to person place and time, appropriate affect, intact judgment and insight. INVASIVE LINES AND TUBES: Ventricular epicardial pacemaker wires present, and are grounded. - Allied health notes Allied health notes reviewed: nursing - Labs CBC & Chem 7: 06/28/24 03:59 06/28/24 03:59 Labs: Abnormal Lab Results - Last 24 Hours (Table) 06/27/24 06/27/24 06/28/24 Range/Units 11:39 16:36 03:59 RBC 2.87 L (4.30-5.90) m/uL Hgb 8.9 L (13.0-17.5) gm/dL Hct 27.0 L (39.0-53.0) % Sodium (137-145) mmol/L POC Glucose (mg/dL) 117 H 121 H (70-110) mg/dL 06/28/24 Range/Units 03:59 RBC (4.30-5.90) m/uL Hgb (13.0-17.5) gm/dL Hct (39.0-53.0) % Sodium 135 L (137-145) mmol/L POC Glucose (mg/dL) (70-110) mg/dL - Imaging and Cardiology Chest x-ray: report reviewed, image reviewed Assessment and Plan Assessment: Coronary artery disease with left main disease, STEMI this admission status post intra-aortic balloon placement, status post three-vessel off-pump coronary artery bypass grafting surgery and subsequent removal of intra-aortic balloon pu mp V-fib arrest x 2 with defibrillation Complete heart block status post temporary transvenous pacemaker placement Syncopal episode Oliguria, likely secondary to hypotension, requiring initiation of dopamine drip at 2 mcg/kg/min, dopamine is off History of dermatomyositis, on Cellcept outpatient, last dose 06/20 Hypothyroid, TSH 33.8, T4 1.32 Plan: Continue aspirin, statin, Plavix and beta-willie. Continue metoprolol tartrate 12.5 mg p.o. twice daily with hold parameters. Will add calcium channel willie amlodipine when blood pressure is able to tolerate for radial artery spasm prophylaxis. Encourage incentive spirometry use 10 times every hour while awake. Bron chodilators per pulmonology. Increase activity as tolerated, PT/OT/cardiac rehab following. Will monitor daily labs and chest x-rays. Electrolyte replacement per protocol. GI/DVT prophylaxis. Pain control per current medication regimen. Insulin management per internal medicine. Patient is not a diabetic, preoperative hemoglobin A1c was 5.5%, needs tight blood sugar control. Continue to monitor and record strict accurate intake and output. May bladder scan every 6 hours and as needed postvoid residual, straight cath for greater than 300 mL of PVR. Continue Flomax 0.4 mg p.o. daily. Dulcolax suppository x 1 now. Continue levothyroxine 250 mcg p.o. daily and home dose of gabapentin 800 mg p.o. nightly. We will transfer to third floor cardiac stepdown unit today. May ground ventricular epicardial pacemaker wires. Keep portable pacemaker generator at bedside. Discharge planning is in place, anticipate discharge home with home health care in the next 48 hours. More recommendations to follow based on patient's clinical course. Time with Patient: Greater than 30
--- NOTE | 2024-06-28 09:57 | P.PN ---
Subjective Progress Note Date: 06/28/24 HISTORY OF PRESENTING ILLNESS 68-year-old male with past medical history of dermatomyositis, autoimmune di sease presented to the hospital because of substernal chest pressure which was associated with diaphoresis while he was driving. EMS was called and they performed an ECG which showed concerns of ST elevations in inferior lead along with complete heart block. He denies any prior cardiac history stroke [place], diabetes or any bleeding diathesis. Social history: Denies any history of smoking, recreational drug use, marijuana use, alcohol use. Family history : Denies any family history of premature coronary artery disease. Progress Notes: June 21, 2024 Patient is evaluated in ICU, IABP in place augmenting appropriately, patient is intermittently paced and has an intrinsic rhythm better as compared to yesterday. Hemoglobin 14.7, BUN 18, creatinine 0.9 Blood pressure is better, not requiring any pressors. Denies any active chest pain chest pressure. IV heparin drip infusing. June 24, 2024 Postop day 1 status post CABG. Coming along well. Has pleural chest tubes and mediastinal chest tube, epicardial pacer, right radial A-line, Queen catheter can right IJ cordis with [place] catheter in place. Cardiac output 6.7, cardiac index 3, PA pressure 26/8, CVP 5, Chest x-ray and labs were reviewed. Amiodarone drip infusing. June 26, 2024 Postop day 3 status post CABG. Patient is doing well. Has pleural chest tubes and mediastinal chest tube, epicardial pacer, right radial A-line, Queen catheter and right IJ cordis with [place] catheter in place. Chest x-ray and labs were reviewed. June 27, 2024 Patient was seen in ICU this morning. Postop day 4 status post CABG. Patient is doing well. Bedside telemetry showing normal sinus rhythm. Right IJ cordis remains in place. Chest x-ray showed small left apical pneumothorax. And surgical changes with mild pulmonary edema and cardiomegaly. There may be trace bilateral pleural effusions. CBC showed WBC count of 9.3, hemoglobin 9.6, hematocrit 30.9, platelet 315. CMP showed sodium 136, potassium 3.9, chloride 106, carbon dioxide 24, BUN 20, creatinine 0.96, glucose 107. Left pleural chest tube had drainage of 350 cc the past 24 hours. Plan is to remove the left pleural chest tube today. Patient denied any chest pain, shortness of breath, nausea, vomiting, diarrhea, belly pain, fever or chills. Patient will remain in the ICU today, possibly downgrade tomorrow. June 28, 2024 Patient was seen in the ICU this morning. Postop day 5 status post CABG. Patient is doing well reports no complaints. Bedside telemetry showing normal sinus rhythm. Right IJ Cordis was taken out yesterday. Chest x-ray showed similar, small left apical pneumothorax, similar surgical changes with mild pulmonary edema and cardiomegaly. There may be trace bilateral pleural effusions. Patient denied any chest pain, shortness of breath, fever, chills, abdominal pain, diarrhea. CBC showed WBC count of 8.6, hemoglobin 8.9, hematocrit 27, platelet 318. CMP showed sodium 135, potassium 4.2, chloride 106, carbon dioxide 23, BUN 20, creatinine 0.97, glucose 95. Chest tubes were taken out yesterday. Patient is saturating at 96% on room air. Most recent blood pressure was 103/70. Physical Exam: General: The patient is awake and alert, in no distress, and does not appear acutely ill. Eye: Pupils are equal, round and reactive to light, extra-ocular movements are intact; there is normal conjunctiva bilaterally. Ears, nose, mouth and throat: There are moist mucous membranes and no oral lesions. TM and canals were not examined Neck: The neck is supple, there is no thyromegaly, lymphadenopathy, tenderness or JVD. Cardiovascular: S1S2 is normal, There is a regular rate and rhythm. No murmur, rub or gallop is appreciated. Respiratory: Lungs are clear to auscultation bilaterally, respirations are non-labored, breath sounds are equal. Gastrointestinal: Soft, non-distended, non-tender abdomen without masses or organomegaly noted. There is no rebound or guarding present. Bowel sounds are unremarkable. Musculoskeletal: Normal ROM, no tenderness, There is no pedal edema. There is no calf tenderness or swelling. No cords were appreciated. Neurological: Detailed neurological exam was not performed. Speech is normal. Skin: Skin is warm and dry and no rashes or lesions are noted. Psychiatric: Cooperative, appropriate mood & affect, normal judgment. Assessment: Inferior STEMI Multivessel CAD involving distal left main 90%, proximal RCA 90% Status post CABG, HILLS to LAD, left radial to ramus, SVG to PDA, 35mm atrial clip Plan Patient is doing well. Continue midodrine 10 mg p.o. 3 times daily, aspirin 325 mg p.o. daily, Lipitor 40 mg p.o. daily, Plavix 75 mg p.o. daily, heparin subcu, metoprolol 12.5 mg p.o. twice daily. Amiodarone was reduced from 400 mg to 200 mg p.o. twice daily. Encouraged the use of incentive spirometry. We will continue to monitor the patient. Objective - Vital Signs Vital signs: Vital Signs Temp 98.6 F 06/28/24 08:00 Pulse 76 06/28/24 09:10 Resp 16 06/28/24 08:00 BP 103/70 06/28/24 08:00 Pulse Ox 100 06/28/24 08:58 FiO2 40 06/23/24 18:15 Intake & Output 06/27/24 06/28/24 06/28/24 18:59 06:59 18:59 Intake Total 778.116 540 120 Output Total 400 100 400 Balance 378.116 440 -280 Weight 113 kg Intake: IV 198 0.9 @ KVO 180 pressure bags 18 Intake, IV Titration 100.116 Amount DOPamine DRIP 800 mg In 100.116 Dextrose/Water 1 250ml. bag @ 3 MCG/KG/MIN 5.991 mls/hr IV .Q24H [facility] Rx#: [id number] Oral 480 540 120 Output: Chest Tube Drainage 0 Chest Tube Left 0 Urine 400 100 400 Other: Voiding Method Indwelling Catheter Urinal # Bowel Movements 1 ABP, PAP, CO, CI - Last Documented Arterial Blood Pressure 95/48 Pulmonary Artery Pressure 23/8 Cardiac Output 5.1 Cardiac Index 2.3 - Labs CBC & Chem 7: 06/28/24 03:59 06/28/24 03:59 Labs: Abnormal Lab Results - Last 24 Hours (Table) 06/27/24 06/27/24 06/28/24 Range/Units 11:39 16:36 03:59 RBC 2.87 L (4.30-5.90) m/uL Hgb 8.9 L (13.0-17.5) gm/dL Hct 27.0 L (39.0-53.0) % Sodium (137-145) mmol/L POC Glucose (mg/dL) 117 H 121 H (70-110) mg/dL 06/28/24 Range/Units 03:59 RBC (4.30-5.90) m/uL Hgb (13.0-17.5) gm/dL Hct (39.0-53.0) % Sodium 135 L (137-145) mmol/L POC Glucose (mg/dL) (70-110) mg/dL
[2024-06-28 11:11] LABS: Glucose,Whole Blood 122 mg/dL (70-110)
--- NOTE | 2024-06-28 12:38 | P.PN ---
Subjective Progress Note Date: 06/28/24 Subjective: Patient seen and examined at bedside. No acute events overnight. Eating well. Pertinent positives and negatives as discussed above, a complete review of systems was performed and all other systems are negative. Vitals Signs Reviewed. General: Nontoxic, no distress, appears at stated age Derm: Warm, dry Head: Atraumatic, normocephalic, symmetric Eyes: EOMI, no lid lag, anicteric sclera Mouth: No lip lesion, mucus membranes moist Cardiovascular: S1S2 reg, no murmur Lungs: CTA bilateral, no rhonchi, no rales, no accessory muscle use Abdominal: Soft, nontender to palpation, no guarding, no appreciable organomegaly Ext: No gross muscle atrophy, no edema, no contractures Neuro: CN II-XI grossly intact, no focal neuro deficits Psych: Alert, oriented, appropriate affect Data Reviewed Today: Pertinent Labs: WBC 8.6, hemoglobin 8.9, sodium 135, creatinine 0.97, blood suga rs range between 95-1 22 Imaging: Chest x-ray independently interpreted shows bilateral interstitial opacities, pneumothorax resolved Assessment and Plan: Status post CABG X3 STEMI S/P intra-aortic balloon placement and removal Multivessel CAD V-fib s/p defibrillation Complete heart block status post pacer Cardiogenic shock, resolved Acute kidney injury, resolved Acute blood loss anemia, anticipated outcome of surgery Left apical pneumothorax -Continue aspirin 325 mg daily, Plavix 75 daily and Lipitor 40 mg daily, metoprolol 12.5 twice daily, amiodarone 200 twice daily -CT surgery note reviewed, likely discharge in 48 hours -Patient also on midodrine 10 AC 3 times daily -Continue to monitor renal function -Pulmonology following -Cardiology note reviewed, decreased amiodarone to 200 twice daily #Hyperglycemia -Subcu insulin ACH S, monitor for hypoglycemia # Subclinical hypothyroidism -TSH 33.8, free T4 1.32. -Continue Synthroid 250 mcg daily, increased by CT surgery -Patient will need TSH rechecked in 4 weeks Neuropathy -Gabapentin 800 nightly Dermatomyositis -Holding CellCept Thank you for allowing us to participate in the care of this pleasant patient. Do not hesitate to contact us with questions. Someone can be reached from the [facility] hospitalist group all hours of the day at [phone] or via perfect serve. Objective - Vital Signs Vital signs: Vital Signs Temp 98.6 F 06/28/24 08:00 Pulse 69 06/28/24 10:00 Resp 17 06/28/24 10:00 BP 125/67 06/28/24 10:00 Pulse Ox 98 06/28/24 10:00 FiO2 40 06/23/24 18:15 Intake & Output 06/27/24 06/28/24 06/28/24 18:59 06:59 18:59 Intake Total 778.116 540 120 Output Total 400 100 400 Balance 378.116 440 -280 Weight 113 kg Intake: IV 198 0.9 @ KVO 180 pressure bags 18 Intake, IV Titration 100.116 Amount DOPamine DRIP 800 mg In 100.116 Dextrose/Water 1 250ml. bag @ 3 MCG/KG/MIN 5.991 mls/hr IV .Q24H [facility] Rx#: [id number] Oral 480 540 120 Output: Chest Tube Drainage 0 Chest Tube Left 0 Urine 400 100 400 Other: Voiding Method Indwelling Catheter Urinal Urinal # Bowel Movements 1 ABP, PAP, CO, CI - Last Documented Arterial Blood Pressure 95/48 Pulmonary Artery Pressure 23/8 Cardiac Output 5.1 Cardiac Index 2.3 - Labs CBC & Chem 7: 06/28/24 03:59 06/28/24 03:59 Labs: Abnormal Lab Results - Last 24 Hours (Table) 06/27/24 06/28/24 06/28/24 Range/Units 16:36 03:59 03:59 RBC 2.87 L (4.30-5.90) m/uL Hgb 8.9 L (13.0-17.5) gm/dL Hct 27.0 L (39.0-53.0) % Sodium 135 L (137-145) mmol/L POC Glucose (mg/dL) 121 H (70-110) mg/dL 06/28/24 Range/Units 11:09 RBC (4.30-5.90) m/uL Hgb (13.0-17.5) gm/dL Hct (39.0-53.0) % Sodium (137-145) mmol/L POC Glucose (mg/dL) 122 H (70-110) mg/dL
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
[2024-06-28 16:27] LABS: Glucose,Whole Blood 100 mg/dL (70-110)
[2024-06-28 20:29] LABS: Glucose,Whole Blood 111 mg/dL (70-110)
[2024-06-28] MEDS: AMIODARONE 200 MG TAB PO SCH (21:41)
[2024-06-29 06:16] LABS: MCH 30.4 pg (25.0-35.0); MCHC 32.1 g/dL (31.0-37.0); MCV 94.8 fL (80.0-100.0); Mean Platelet Volume 7.5; Platelet Count 360 k/uL (150-450); RBC 2.95 m/uL (4.30-5.90); WBC 8.3 k/uL (3.8-10.6)
[2024-06-29 06:26] LABS: Glucose,Whole Blood 100 mg/dL (70-110)
[2024-06-29 06:28] LABS: African American GFR (CKD) >90 (>60 ml/min/1.73 sqM); Anion Gap 4 mmol/L; Blood Urea Nitrogen 17 mg/dL (9-20); Calcium 8.4 mg/dL (8.4-10.2); Carbon Dioxide 22 mmol/L (22-30); Chloride 107 mmol/L (98-107); Glucose 93 mg/dL (74-99); Non-African American GFR(CKD) 84 (>60 ml/min/1.73 sqM); Potassium 4.1 mmol/L (3.5-5.1); Sodium 133 mmol/L (137-145)
--- NOTE | 2024-06-29 08:03 | XR ---
EXAMINATION TYPE: XR chest 2V DATE OF EXAM: 06/29/2024 6:05 AM CLINICAL INDICATION: Male, 68 years old with history of Postop CABG; [facility] COMPARISON: Chest radiograph from one day prior. TECHNIQUE: XR chest 2V Frontal view of the chest. FINDINGS: Lungs/Pleura: Trace left apical pneumothorax noted. No definitive right apical pneumothorax.. Bluntin g of the costophrenic angles is present. Pulmonary vascularity: Pulmonary vascular congestion. Heart/mediastinum: Cardiomediastinal silhouette is unremarkable. Atherosclerotic calcifications are seen in the aorta. Left atrial appendage occlusion device is present. Musculoskeletal: No acute osseous pathology. Midline sternotomy wires are noted. Other findings: None Lines/Tubes: Additional lead projecting over the left aspect of the heart. IMPRESSION: 1. Trace left apical pneumothorax,. 2. Surgical changes with mild pulmonary edema and cardiomegaly. 3. Trace bilateral pleural effusions. [facility], , 06/29/2024 8:01 AM
--- NOTE | 2024-06-29 08:07 | P.PN ---
Subjective Progress Note Date: 06/29/24 Principal diagnosis: Coronary artery disease with left main disease, STEMI this admission status post intra-aortic balloon placement, V-fib arrest x 2 with defibrillation, complete heart block status post temporary transvenous pacemaker placement, syncopal episode. History of dermatomyositis, hypothyroid, lifetime non-smoker POD #6 Off-pump CABG x 3 with HILLS to LAD, left radial artery to intermediate, saphenous vein graft to posterior descending coronary artery with endovascular harvest of the saphenous vein from the right thigh and entire left lower extremity, endovascular harvest of the left radial artery, occlusion of the left atrial appendage with a 35 mm AtriCure clip. Removal of transfemoral venous temporary pacemaker and venous sheath. Status post removal of intra-aortic balloon pump Postoperative acute blood loss anemia, expected given hemodilution Oliguria, likely secondary to hypotension, requiring initiation of dopamine drip at 3 mcg/kg/min, Dopamine is off The patient was seen and examined this morning sitting up in recliner in the intensive care unit in no acute distress. Denies any pain or shortness of breath. States he has ambulated around the hallway and showered already without difficulty. Currently in sinus rhythm, hemodynamically stable. Epicardial pacemaker wires were removed this morning without incident. Patient states he f eels ready to go home. Objective - Vital Signs Vital signs: Vital Signs Temp 98.1 F 06/29/24 00:00 Pulse 75 06/29/24 07:50 Resp 17 06/29/24 04:00 BP 135/50 06/29/24 04:00 Pulse Ox 99 06/29/24 04:00 FiO2 40 06/23/24 18:15 Intake & Output 06/28/24 06/29/24 06/29/24 18:59 06:59 18:59 Intake Total 480 240 Output Total 1240 400 500 Balance -760 -160 -500 Weight 112.5 kg Intake: Oral 480 240 Output: Urine 1000 400 500 Post Void Residual 240 Other: Voiding Method Urinal # Voids 1 # Bowel Movements 1 2 ABP, PAP, CO, CI - Last Documented Arterial Blood Pressure 95/48 Pulmonary Artery Pressure 23/8 Cardiac Output 5.1 Cardiac Index 2.3 - Exam CONSTITUTIONAL: Appears comfortable, cooperative, no acute distress RESPIRATORY: Lungs sounds diminished in the bases bilaterally. Respirations even, nonlabored. Currently on room air with oxygen saturation 99%. Able to achieve 1500 mL on incentive spirometry. Strong nonproductive cough. CARDIOVASCULAR: S1, S2 present. Regular rate and rhythm, sinus rhythm on telemetry. Sternum stable. Palpable peripheral pulses bilaterally. No edema present. No calf pain or tenderness noted. Heart hugger in place with patient demonstrating appropriate use. Antiembolism stockings, SCDs present. GASTROINTESTINAL: Abdomen soft, nontender, nondistended. Active bowel sounds present 4 quadrants. Tolerating diet. Positive bowel movement 06/29 GENITOURINARY: Continues to void, 1400 mL urine output in the last 24 hours INTEGUMENTARY: Skin is warm and dry with evidence of good perfusion. Anterior chest incision well approximated. Left radial artery harvest site along with bilateral lower extremity EVH sites well approximated without redness or drainage. NEUROLOGIC: Cranial nerves II through XII intact MUSKULOSKELETAL: Able to move all extremities, strength equal bilaterally, gait normal PSYCHIATRIC: Alert and oriented to person place and time, appropriate affect, intact judgment and insight - Allied health notes Allied health notes reviewed: nursing - Labs CBC & Chem 7: 06/29/24 05:30 06/29/24 05:30 Labs: Abnormal Lab Results - Last 24 Hours (Table) 06/28/24 06/28/24 06/29/24 Range/Units 11:09 20:28 05:30 RBC 2.95 L (4.30-5.90) m/uL Hgb 9.0 L (13.0-17.5) gm/dL Hct 28.0 L (39.0-53.0) % Sodium (137-145) mmol/L POC Glucose (mg/dL) 122 H 111 H (70-110) mg/dL 06/29/24 Range/Units 05:30 RBC (4.30-5.90) m/uL Hgb (13.0-17.5) gm/dL Hct (39.0-53.0) % Sodium 133 L (137-145) mmol/L POC Glucose (mg/dL) (70-110) mg/dL - Imaging and Cardiology Chest x-ray: image reviewed Assessment and Plan Assessment: Coronary artery disease with left main disease, STEMI this admission status post intra-aortic balloon placement, status post three-vessel off-pump CABG, post removal of intra-aortic balloon pump V-fib arrest x 2 with defibrillation Complete heart block status post temporary transvenous pacemaker placement Syncopal episode Postoperative acute blood loss anemia, expected given hemodilution Oliguria, likely secondary to hypotension History of dermatomyositis, on Cellcept outpatient, last dose 06/20 Hypothyroid, TSH 33.8, T4 1.32 Lifetime non-smoker, preoperative FEV1 68% of predicted Plan: Continue to maximize medical therapy with ASA, statin, Plavix, BB Continue amiodarone for A-fib prophylaxis. Patient has had no atrial fibrillation at this point Encourage incentive spirometry use 10 times every hour while awake. Bronchodilators per pulmonology. Increase activity as tolerated, PT/OT/cardiac rehab following. Will monitor daily labs and chest x-rays. Electrolyte replacement per protocol. GI/DVT prophylaxis. Pain control per current medication regimen. Insulin management per internal medicine. Patient is not a diabetic, preoperative hemoglobin A1c was 5.5%, needs tight blood sugar control. Continue to monitor and record strict accurate intake and output May bladder scan every 6 hours and as needed postvoid residual, straight cath for greater than 300 mL of PVR. Continue Flomax 0.4 mg p.o. daily. Continue levothyroxine 250 mcg p.o. daily and home dose of gabapentin 800 mg p.o. nightly. Discharge planning is in place, anticipate discharge home with home health care this afternoon More recommendations to follow based on patient's clinical course
[2024-06-29] MEDS: AMIODARONE 200 MG TAB PO SCH (09:02)
[2024-06-29] MEDS: METOPROLOL SUCCINATE (ER) 25 MG TAB.ER.24H PO SCH (09:09)
[2024-06-29] MEDS: MIDODRINE 5 MG TAB PO SCH (09:10)
[2024-06-29 10:31] VITALS: BP 106/63; PULSE 79; TEMP 98.4
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
[2024-06-29 11:21] VITALS: RESP 22
--- NOTE | 2024-06-29 11:28 | P.PN ---
Subjective Progress Note Date: 06/29/24 Subjective: Patient seen and examined at bedside. No acute events overnight. Eating well. Pertinent positives and negatives as discussed above, a complete review of systems was performed and all other systems are negative. Vitals Signs Reviewed. General: Nontoxic, no distress, appears at stated age Derm: Warm, dry Head: Atraumatic, normocephalic, symmetric Eyes: EOMI, no lid lag, anicteric sclera Mouth: No lip lesion, mucus membranes moist Cardiovascular: S1S2 reg, no murmur Lungs: CTA bilateral, no rhonchi, no rales, no accessory muscle use Abdominal: Soft, nontender to palpation, no guarding, no appreciable organomegaly Ext: No gross muscle atrophy, no edema, no contractures Neuro: CN II-XI grossly intact, no focal neuro deficits Psych: Alert, oriented, appropriate affect Data Reviewed Today: Pertinent Labs: WBC 8.3, hemoglobin 9, sodium 133, creatinine 0.92, blood sugars range between 93-100 Imaging: Chest x-ray independently interpreted shows bilateral interstitial o pacities, unchanged from yesterday Assessment and Plan: Status post CABG X3 STEMI S/P intra-aortic balloon placement and removal Multivessel CAD V-fib s/p defibrillation Complete heart block status post pacer Cardiogenic shock, resolved Acute kidney injury, resolved Acute blood loss anemia, anticipated outcome of surgery Left apical pneumothorax -Continue aspirin 325 mg daily, Plavix 75 daily and Lipitor 40 mg daily, metoprolol 12.5 twice daily, amiodarone 200 twice daily -CT surgery note reviewed, discharged today -Patient also on midodrine 10 AC 3 times daily -Pulmonology following #Hyperglycemia -Subcu insulin ACH S, monitor for hypoglycemia # Subclinical hypothyroidism -TSH 33.8, free T4 1.32. -Continue Synthroid 250 mcg daily, increased by CT surgery -Patient will need TSH rechecked in 4 weeks Neuropathy -Gabapentin 800 nightly Dermatomyositis -Holding CellCept Thank you for allowing us to participate in the care of this pleasant patient. Do not hesitate to contact us with questions. Someone can be reached from the [facility] hospitalist group all hours of the day at [phone] or via perfect serve. Objective - Vital Signs Vital signs: Vital Signs Temp 98.4 F 06/29/24 08:30 Pulse 79 06/29/24 08:30 Resp 22 06/29/24 08:30 BP 106/63 06/29/24 08:30 Pulse Ox 99 06/29/24 04:00 FiO2 40 06/23/24 18:15 Intake & Output 06/28/24 06/29/24 06/29/24 18:59 06:59 18:59 Intake Total 480 240 Output Total 1240 400 500 Balance -760 -160 -500 Weight 112.5 kg Intake: Oral 480 240 Output: Urine 1000 400 500 Post Void Residual 240 Other: Voiding Method Urinal # Voids 1 # Bowel Movements 1 2 ABP, PAP, CO, CI - Last Documented Arterial Blood Pressure 95/48 Pulmonary Artery Pressure 23/8 Cardiac Output 5.1 Cardiac Index 2.3 - Labs CBC & Chem 7: 06/29/24 05:30 06/29/24 05:30 Labs: Abnormal Lab Results - Last 24 Hours (Table) 06/28/24 06/29/24 06/29/24 Range/Units 20:28 05:30 05:30 RBC 2.95 L (4.30-5.90) m/uL Hgb 9.0 L (13.0-17.5) gm/dL Hct 28.0 L (39.0-53.0) % Sodium 133 L (137-145) mmol/L POC Glucose (mg/dL) 111 H (70-110) mg/dL
[2024-06-29 11:29] LABS: Glucose,Whole Blood 94 mg/dL (70-110)
--- NOTE | 2024-06-29 11:53 | PN ---
PROGRESS NOTE HISTORY OF PRESENT ILLNESS: This is a 68-year-old gentleman, who was admitted to hospital with acute coronary syndrome, underwent cardiac catheterization and subsequent bypass surgery with HILLS to LAD, left radial artery graft to ramus intermedius, venous graft to PDA, and left atrial appendage was occluded using a 35 mm AtriCure clip. The patient is postop day #6, doing well, and is free of symptoms. He is ambulating without any problems. Stable hemodynamically and ready to be discharged home. PHYSICAL EXAMINATION: GENERAL: Comfortable at rest. VITAL SIGNS: Stable. NECK: There is no jugular venous distention. Carotid upstroke is normal. There is no bruit. CHEST: Reveals diminished air entry at the bases. HEART: Reveals first and second heart sounds. No gallop. No murmur. ABDOMEN: Soft. EXTREMITIES: Did not reveal any edema. LABORATORY DATA: Labs show a hemoglobin of 9, platelet count is 360. Potassium is 4.1, creatinine 0.9. ASSESSMENT AND PLAN: Coronary artery disease, status post coronary artery bypass graft. PLAN: The patient is doing well. He will continue the aspirin, Lipitor, Plavix, and Toprol that he is on. He will be followed up with Cardiology in a week's time. MMODL / IJN: [id number] /
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
== END 2024-06-29 14:08 | disposition home health service (06) | DRG 233 ==
LOC: EC 13:25 → 2SICU 13:33
PROVIDERS: ADMIT Thoracic Surgery (Cardiothoracic Vascular Surgery); ATTEND Thoracic Surgery (Cardiothoracic Vascular Surgery)
PROC: 5A02210 Assistance with Cardiac Output using Balloon Pump, Continuous (ICD-10-PCS; 2024-06-20)
PROC: 02HV33Z Insertion of Infusion Device into Superior Vena Cava, Percutaneous Approach (ICD-10-PCS; 2024-06-20)
PROC: 3E043XZ Introduction of Vasopressor into Central Vein, Percutaneous Approach (ICD-10-PCS; 2024-06-20)
PROC: B2111ZZ Fluoroscopy of Multiple Coronary Arteries using Low Osmolar Contrast (ICD-10-PCS; 2024-06-20)
PROC: 5A1223Z Performance of Cardiac Pacing, Continuous (ICD-10-PCS; 2024-06-20)
PROC: 5A2204Z Restoration of Cardiac Rhythm, Single (ICD-10-PCS; 2024-06-20)
PROC: 4A023N7 Measurement of Cardiac Sampling and Pressure, Left Heart, Percutaneous Approach (ICD-10-PCS; 2024-06-20 13:28)
PROC: 03HY32Z Insertion of Monitoring Device into Upper Artery, Percutaneous Approach (ICD-10-PCS; 2024-06-21)
PROC: 4A133B1 Monitoring of Arterial Pressure, Peripheral, Percutaneous Approach (ICD-10-PCS; 2024-06-21)
PROC: 4A133J1 Monitoring of Arterial Pulse, Peripheral, Percutaneous Approach (ICD-10-PCS; 2024-06-21)
PROC: 02100Z9 Bypass Coronary Artery, One Artery from Left Internal Mammary, Open Approach (ICD-10-PCS; 2024-06-23)
PROC: 06BP4ZZ Excision of Right Saphenous Vein, Percutaneous Endoscopic Approach (ICD-10-PCS; 2024-06-23)
PROC: 03BC4ZZ Excision of Left Radial Artery, Percutaneous Endoscopic Approach (ICD-10-PCS; 2024-06-23)
PROC: B24BZZ4 Ultrasonography of Heart with Aorta, Transesophageal (ICD-10-PCS; 2024-06-23)
PROC: 02L70CK Occlusion of Left Atrial Appendage with Extraluminal Device, Open Approach (ICD-10-PCS; 2024-06-23)
PROC: 0210093 Bypass Coronary Artery, One Artery from Coronary Artery with Autologous Venous Tissue, Open Approach (ICD-10-PCS; principal; 2024-06-23 08:00)
PROC: 02100A3 Bypass Coronary Artery, One Artery from Coronary Artery with Autologous Arterial Tissue, Open Approach (ICD-10-PCS; 2024-06-23 08:00)
DX: I21.19 ST elevation (STEMI) myocardial infarction involving other coronary artery of inferior wall (principal); I46.2 Cardiac arrest due to underlying cardiac condition; R57.0 Cardiogenic shock; J96.01 Acute respiratory failure with hypoxia; I49.01 Ventricular fibrillation; I44.2 Atrioventricular block, complete; I47.20 Ventricular tachycardia, unspecified; I45.89 Other specified conduction disorders; J93.83 Other pneumothorax; M33.13 Other dermatomyositis without myopathy; N17.9 Acute kidney failure, unspecified; J84.9 Interstitial pulmonary disease, unspecified; D62 Acute posthemorrhagic anemia; M35.9 Systemic involvement of connective tissue, unspecified; E03.8 Other specified hypothyroidism; G62.9 Polyneuropathy, unspecified; R73.9 Hyperglycemia, unspecified; I25.10 Atherosclerotic heart disease of native coronary artery without angina pectoris; K59.00 Constipation, unspecified; R12 Heartburn; R33.9 Retention of urine, unspecified; I51.7 Cardiomegaly; V49.9XXA Car occupant (driver) (passenger) injured in unspecified traffic accident, initial encounter; Y92.410 Unspecified street and highway as the place of occurrence of the external cause; Z79.624 Long term (current) use of inhibitors of nucleotide synthesis; Z79.890 Hormone replacement therapy; Z79.899 Other long term (current) drug therapy
CPT/HCPCS: 33210; 33967; 71045; 71046; 80048; 80053; 80061; 81001; 82330; 82550; 82805; 83036; 83735; 83880; 84132; 84145; 84439; 84443; 84484; 85025; 85027; 85610; 85730; 86850; 86891; 86900; 86901; 86920; 87070; 93005; 93306; 93458; 93880; 93970; 94002; 94150; 94640; 96374; 96375; 99291

== ENCOUNTER 2024-08-17 05:08 | Observation (INO) | payer MEDICARE ==
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
[2024-08-17 05:44] LABS: Basophils % (A) 0 %; Eosinophils # (A) 0.2 k/uL (0-0.7); Eosinophils % (A) 2 %; HGB 14.1 gm/dL (13.0-17.5); Lymphocytes # (A) 1.7 k/uL (1.0-4.8); Lymphocytes % (A) 22 %; MCH 29.4 pg (25.0-35.0); MCV 91.9 fL (80.0-100.0); Mean Platelet Volume 7.2; Monocytes # (A) 0.3 k/uL (0-1.0); Monocytes % (A) 5 %; Neutrophils # (A) 5.2 k/uL (1.3-7.7); Neutrophils % (A) 70 %; Platelet Count 250 k/uL (150-450); RBC 4.79 m/uL (4.30-5.90); RDW 13.4 % (11.5-15.5); WBC 7.5 k/uL (3.8-10.6)
[2024-08-17 05:48] LABS: ALT 20 U/L (4-49); AST 29 U/L (17-59); African American GFR (CKD) 78 (>60 ml/min/1.73 sqM); Albumin 3.9 g/dL (3.5-5.0); Alkaline Phosphatase 98 U/L (38-126); Anion Gap 6 mmol/L; Blood Urea Nitrogen 22 mg/dL (9-20); Carbon Dioxide 24 mmol/L (22-30); Chloride 107 mmol/L (98-107); Glucose 118 mg/dL (74-99); Non-African American GFR(CKD) 67 (>60 ml/min/1.73 sqM); Sodium 137 mmol/L (137-145); Total Bilirubin 0.7 mg/dL (0.2-1.3); Total Protein 6.5 g/dL (6.3-8.2)
[2024-08-17] MEDS: SODIUM CHLORIDE 0.9% 500 ML 500 ML IV STA (05:54)
[2024-08-17 05:58] LABS: Prothrombin Time 11.2 sec (10.0-12.5)
--- NOTE | 2024-08-17 06:23 | ED ---
General Adult HPI - General Chief complaint: Syncope Stated complaint: Fall Time Seen by Provider: 08/17/24 05:15 Source: EMS Mode of arrival: EMS - History of Present Illness Initial comments: 68-year-old male presents from home with head injury. Patient got up to use the restroom. He ended up having a syncopal episode in the bathroom, fell and hit his head. The patient is on Plavix. He attempted to get up from the floor and ended up having another syncopal episode. called EMS. EMS attempted to stand the patient and again he passed out. He does have a history of syncope. In June he had bypass surgery after syncopal episode. Patient was positive for orthostatic hypotension and was on midodrine. He states that he saw cardiology at his follow-up appointment and they took him off of the midodrine approximately a month ago. He has not had any issues up until tonight. He denies any recent illnesses. No vomiting or diarrhea. No black or bloody stools. States he felt well when he went to bed. Denies any fevers. No chest pain or shortness of breath. Patient has chronic neck pain. Denies any new neck pain. Was placed in a c-collar on scene. No other recent medication changes. No other alleviating, precipitating or modifying factors - Related Data Home Medications Medication Instructions Recorded Confirmed Levothyroxine Sodium 200 mcg PO DAILY 09/08/22 08/17/24 Gabapentin 800 mg PO HS 06/20/24 08/17/24 mycophenolate mofetiL [Cellcept] 1,000 mg PO BID 08/17/24 08/17/24 Previous Rx's Medication Instructions Recorded Acetaminophen Tab [Tylenol] 1,000 mg PO Q6HR PRN tab 06/29/24 Aspirin 325 mg PO DAILY #30 tab 06/29/24 Atorvastatin [Lipitor] 40 mg PO DAILY #30 tab 06/29/24 Clopidogrel [Plavix] 75 mg PO DAILY #30 tab 06/29/24 Metoprolol Succinate (ER) [Toprol 25 mg PO DAILY #30 tab 06/29/24 XL] Tamsulosin [Flomax] 0.4 mg PO PC-BRKFST #30 cap 06/29/24 Midodrine [ProAmatine] 5 mg PO AC-TID 30 Days #90 tab 08/18/24 Allergies Allergy/AdvReac Type Severity Reaction Status Date / Time Iodinated Contrast Media Allergy Rash/Hives Verified 08/17/24 07:21 Review of Systems ROS Statement: Those systems with pertinent positive or pertinent negative responses have been documented in the HPI. ROS Other: All systems not noted in ROS Statement are negative. 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, kidney stone History of Any Multi-Drug Resistant Organisms: None Reported Past Surgical History: No Surgical Hx Reported, Tonsillectomy Additional Past Surgical History / Comment(s): cataract surgery (bilateral), oral surgery Past Anesthesia/Blood Transfusion Reactions: No Reported Reaction Past Psychological History: No Psychological Hx Reported Smoking Status: Never smoker Past Alcohol Use History: Occasional Past Drug Use History: None Reported - Past Family History Mother Family Medical History: Cancer Additional Family Medical History / Comment(s): from cancer Father Additional Family Medical History / Comment(s): from old age General Exam General appearance: alert, in no apparent distress Head exam: Present: normocephalic, other (Abrasion to the central forehead which is in a stellate pattern. No laceration requiring suture repair) Eye exam: Present: normal appearance, PERRL, EOMI. Absent: scleral icterus, conjunctival injection, periorbital swelling ENT exam: Present: normal exam, mucous membranes moist Neck exam: Present: normal inspection. Absent: tenderness, meningismus, lymphadenopathy Respiratory exam: Present: normal lung sounds bilaterally. Absent: respiratory distress, wheezes, rales, rhonchi, stridor Cardiovascular Exam: Present: regular rate, normal rhythm, normal heart sounds. Absent: systolic murmur, diastolic murmur, rubs, gallop, clicks GI/Abdominal exam: Present: soft, normal bowel sounds. Absent: distended, tenderness, guarding, rebound, rigid Extremities exam: Present: normal inspection, full ROM, normal capillary refill. Absent: tenderness, pedal edema, joint swelling, calf tenderness Back exam: Present: normal inspection Neurological exam: Present: alert, oriented X3, CN II-XII intact Psychiatric exam: Present: normal affect, normal mood Skin exam: Present: warm, dry, intact, normal color. Absent: rash Course Vital Signs 08/17/24 08/17/2424 05:11 07:08 08:35 Temperature 97.7 F Pulse Rate 62 68 72 Pulse Rate [ [employer] ] Respiratory 16 18 16 Rate Blood Pressure 124/91 122/90 122/85 Blood Pressure [Right Arm Sitting] Blood Pressure [Right Arm Standing] Blood Pressure [Right Arm Supine] O2 Sat by Pulse 98 98 99 Oximetry 08/17/24 08/17/24 08/17/24 12:00 14:02 14:04 Temperature 97.6 F Pulse Rate 63 Pulse Rate [ 71 79 [employer] ] Respiratory 19 18 Rate Blood Pressure 120/70 Blood Pressure 130/90 [Right Arm Sitting] Blood Pressure 104/88 [Right Arm Standing] Blood Pressure 127/85 [Right Arm Supine] O2 Sat by Pulse 97 100 Oximetry 08/17/24 18:00 Temperature Pulse Rate 69 Pulse Rate [ Manager [employer] ] Respiratory 17 Rate Blood Pressure 104/76 Blood Pressure [Right Arm Sitting] Blood Pressure [Right Arm Standing] Blood Pressure [Right Arm Supine] O2 Sat by Pulse 98 Oximetry Medical Decision Making - Medical Decision Making Was pt. sent in by a medical professional or institution (, PA, RADIAL DRILL PRESS OPERATOR, urgent care, hospital, or custodial...) When possible be specific @ -No Did you speak to anyone other than the patient for history (EMS, parent, family, police, friend...)? What history was obtained from this source @ -Spoke with EMS for history Did you review nursing and triage notes (agree or disagree)? Why? @ -I reviewed and agree with nursing and triage notes Were old charts reviewed (outside hosp., previous admission, EMS record, old EKG, old radiological studies, urgent care reports/EKG's, custodial records)? Report findings @ -I reviewed the discharge summary when patient was admitted for his open heart surgery Differential Diagnosis (chest pain, altered mental status, abdominal pain women, abdominal pain men, vaginal bleeding, weakness, fever, dyspnea, syncope, headache, dizziness, GI bleed, back pain, seizure, CVA, palpatations, mental health, musculoskeletal)? @ -Differential Syncope: Valvular disease, hypertrophic cardiomyopathy, pulmonary embolism, tamponade, tachycardia, bradycardia, VA, hypovolemia, hemorrhage, dissection, anemia, intracranial hemorrhage, seizure, hypoglycemia, carbon monoxide poisoning, this is not meant to be an all-inclusive list. EKG interpreted by me (3pts min.). @ -Yes and demonstrates sinus rhythm with a rate of 62. Parable 198. QRS 105. QTc of 438. No acute ST segment elevations or depressions. No evidence of high degree heart block X-rays interpreted by me (1pt min.). @ -Yes and demonstrates no acute process CT interpreted by me (1pt min.). @ -Yes and demonstrates no acute process U/S interpreted by me (1pt. min.). @ -None done What testing was considered but not performed or refused? (CT, X-rays, U/S, labs)? Why? @ -None What meds were considered but not given or refused? Why? @ -None Did you discuss the management of the patient with other professionals (professionals i.e. , PA, RADIAL DRILL PRESS OPERATOR, lab, RT, psych nurse, social media developer, call person, teacher, special weapons unit officer, social work case manager)? Give summary @ -Spoke with sound physicians for admission Was smoking cessation discussed for >3mins.? @ -No Was critical care preformed (if so, how long)? @ -No Were there social determinants of health that impacted care today? How? (Homelessness, low income, unemployed, alcoholism, drug addiction, transportation, low edu. Level, literacy, decrease access to med. care, half-way, rehab)? @ -No Was there de-escalation of care discussed even if they declined (Discuss DNR or withdrawal of care, Hospice)? DNR status @ -No What co-morbidities impacted this encounter? (DM, HTN, Smoking, COPD, CAD, Cancer, CVA, ARF, Chemo, Hep., AIDS, mental health diagnosis, sleep apnea, morbid obesity)? @ -Coronary artery disease status post CABG Was patient admitted / discharged? Hospital course, mention meds given and route, prescriptions, significant lab abnormalities, going to OR and other [facility] info. @ -Upon arrival patient seen and evaluated in room 22. Thorough history and physical exam was performed. Patient found to be markedly orthostatic hypotensive on scene. We did not stand the patient at this time as he did pass out several times already upon standing. He is sent for CT which demonstrates no acute intracranial finding. Laboratory studies are conducted. I did recommend admission due to his multiple syncopal episodes for which the patient was agreeable. Spoke with sound physicians for admission Undiagnosed new problem with uncertain prognosis? @ -No Drug Therapy requiring intensive monitoring for toxicity (Heparin, Nitro, Insulin, Cardizem)? @ -No Were any procedures done? @ -No Diagnosis/symptom? @ -Multiple syncopal episodes, blunt head trauma, orthostatic hypotension Acute, or Chronic, or Acute on Chronic? @ -Acute Uncomplicated (without systemic symptoms) or Complicated (systemic symptoms)? @ -Complicated Side effects of treatment? @ -No Exacerbation, Progression, or Severe Exacerbation? @ -No Poses a threat to life or bodily function? How? (Chest pain, USA, VA, pneumonia, PE, COPD, DKA, ARF, appy, cholecystitis, CVA, Diverticulitis, Homicidal, Suicidal, threat to staff... and all critical care pts) @ -No - Lab Data Result diagrams: 08/18/24 06:00 08/18/24 06:00 Lab Results 08/17/24 08/17/24 08/17/24 Range/Units 05:21 05:21 05:21 WBC 7.5 (3.8-10.6) k/uL RBC 4.79 (4.30-5.90) m/uL Hgb 14.1 (13.0-17.5) gm/dL Hct 44.0 (39.0-53.0) % MCV 91.9 (80.0-100.0) fL MCH 29.4 (25.0-35.0) pg MCHC 32.0 (31.0-37.0) g/dL RDW 13.4 (11.5-15.5) % Plt Count 250 (150-450) k/uL MPV 7.2 Neutrophils % 70 % Lymphocytes % 22 % Monocytes % 5 % Eosinophils % 2 % Basophils % 0 % Neutrophils # 5.2 (1.3-7.7) k/uL Lymphocytes # 1.7 (1.0-4.8) k/uL Monocytes # 0.3 (0-1.0) k/uL Eosinophils # 0.2 (0-0.7) k/uL Basophils # 0.0 (0-0.2) k/uL PT 11.2 (10.0-12.5) sec INR 1.0 (<1.2) APTT 22.0 (22.0-30.0) sec Sodium 137 (137-145) mmol/L Potassium 4.0 (3.5-5.1) mmol/L Chloride 107 (98-107) mmol/L Carbon Dioxide 24 (22-30) mmol/L Anion Gap 6 mmol/L BUN 22 H (9-20) mg/dL Creatinine 1.11 (0.66-1.25) mg/dL Est GFR (CKD-EPI)AfAm 78 (>60 ml/min/1.73 sqM) Est GFR (CKD-EPI)NonAf 67 (>60 ml/min/1.73 sqM) Glucose 118 H (74-99) mg/dL Calcium 9.0 (8.4-10.2) mg/dL Total Bilirubin 0.7 (0.2-1.3) mg/dL AST 29 (17-59) U/L ALT 20 (4-49) U/L Alkaline Phosphatase 98 (38-126) U/L Troponin I (0.000-0.034) ng/mL Total Protein 6.5 (6.3-8.2) g/dL Albumin 3.9 (3.5-5.0) g/dL 08/17/24 Range/Units 05:21 WBC (3.8-10.6) k/uL RBC (4.30-5.90) m/uL Hgb (13.0-17.5) gm/dL Hct (39.0-53.0) % MCV (80.0-100.0) fL MCH (25.0-35.0) pg MCHC (31.0-37.0) g/dL RDW (11.5-15.5) % Plt Count (150-450) k/uL MPV Neutrophils % % Lymphocytes % % Monocytes % % Eosinophils % % Basophils % % Neutrophils # (1.3-7.7) k/uL Lymphocytes # (1.0-4.8) k/uL Monocytes # (0-1.0) k/uL Eosinophils # (0-0.7) k/uL Basophils # (0-0.2) k/uL PT (10.0-12.5) sec INR (<1.2) APTT (22.0-30.0) sec Sodium (137-145) mmol/L Potassium (3.5-5.1) mmol/L Chloride (98-107) mmol/L Carbon Dioxide (22-30) mmol/L Anion Gap mmol/L BUN (9-20) mg/dL Creatinine (0.66-1.25) mg/dL Est GFR (CKD-EPI)AfAm (>60 ml/min/1.73 sqM) Est GFR (CKD-EPI)NonAf (>60 ml/min/1.73 sqM) Glucose (74-99) mg/dL Calcium (8.4-10.2) mg/dL Total Bilirubin (0.2-1.3) mg/dL AST (17-59) U/L ALT (4-49) U/L Alkaline Phosphatase (38-126) U/L Troponin I 0.020 (0.000-0.034) ng/mL Total Protein (6.3-8.2) g/dL Albumin (3.5-5.0) g/dL Disposition Clinical Impression: Syncope, Orthostatic hypotension, Head injury Disposition: ADMITTED IP TO THIS [facility] Condition: Fair Is patient prescribed a controlled substance at d/c from ED?: No Time of Disposition: :23 Decision to Admit Reason: Admit from EC Decision Date: 08/17/24 Decision Time: :23
[2024-08-17] MEDS ORDERED: NALOXONE 0.4 MG/ML 1 ML VIAL IV PRN (06:24)
[2024-08-17] MEDS ORDERED: ACETAMINOPHEN TAB 325 MG TAB PO PRN (06:32)
[2024-08-17] MEDS: BACITRACIN OINT 1 EACH PACKET TOPICAL ONE (07:11)
[2024-08-17] MEDS: SODIUM CHLORIDE 0.9% 1,000 ML IV SCH (07:22)
[2024-08-17] MEDS ORDERED: ACETAMINOPHEN TAB 500 MG TAB PO PRN (07:39)
[2024-08-17] MEDS: CLOPIDOGREL 75 MG TAB PO SCH (08:41)
[2024-08-17] MEDS: ASPIRIN 325 MG TAB PO SCH (08:41)
[2024-08-17] MEDS: ATORVASTATIN 40 MG TAB PO SCH (08:41)
[2024-08-17] MEDS: LEVOTHYROXINE 100 MCG TAB PO SCH (08:41)
[2024-08-17] MEDS: METOPROLOL SUCCINATE (ER) 25 MG TAB.ER.24H PO SCH (08:41)
--- NOTE | 2024-08-17 11:45 | P.CRDCN ---
History of Present Illness History of present illness: HISTORY OF PRESENT ILLNESS: This is a 68-year-old male with a past medical history significant for coronary artery disease with previous CABG, hypothyroidism, and dermatomyositis. Patient follows in the office with Dr. Seaman. We have been asked to see the patient in consultation for syncope and orthostatic hypotension. Patient examined at the bedside in the ER. Patient states at about 3am today he got up to go to the bathroom. He states he got dizzy and passed out while he was up sitting on the toilet. Afterwards, he attempted to walk back to bed when he passed out and fell again. He states other than this episode, he has been doing well overall. He has been going to cardiac rehab. He has not been having chest pain or pressure. He denies having any shortness of breath. His family member at the bedside states he was taken off Midodrine recently by Dr. Seaman. DIAGNOSTICS: - EKG reveals sinus mechanism with T wave inversions inferiorly. - Laboratory data: WBC 7.5. Hemoglobin 14.1. Platelet count 250. Sodium 137. Potassium 4.0. BUN 22. Creatinine 1.11. Troponin 0.020. - Current home cardiac medications include aspirin 325 mg daily, Lipitor 40 mg daily, Plavix 75 mg daily, metoprolol succinate 25 mg daily - Most recent echocardiogram obtained in June 2024 revealed ejection fraction 55 to 60%, mild TR, mild MR REVIEW OF SYSTEMS: At the time of my exam: CONSTITUTIONAL: Denies fever or chills. HEENT: Denies blurred vision, vision changes, or eye pain. Denies hemoptysis CARDIOVASCULAR: Denies chest pain. Denies orthopnea. Denies PND. Denies palpitations RESPIRATORY: Denies shortness of breath. GASTROINTESTINAL: Denies abdominal pain. Denies nausea or vomiting. HEMATOLOGIC: Denies bleeding disorders. GENITOURINARY: Denies any blood in urine. SKIN: Denies pruitis. Denies rash. PHYSICAL EXAM: VITAL SIGNS: Reviewed. GENERAL: Well-developed in no acute distress. HEENT: Head is normocephalic. Pupils are equal, round. Sclerae anicteric. Mucous membranes of the mouth are moist. Neck supple. No JVD or thyromegaly LUNGS: Respirations even and unlabored. Lungs essentially clear to auscultation bilaterally. HEART: Regular rate and rhythm. S1 and S2 heard. ABDOMEN: Soft. Nondistended. Nontender. EXTREMITIES: Normal range of motion. No clubbing or cyanosis. Peripheral pulses intact. No lower extremity edema NEUROLOGIC: Awake and alert. Oriented x 3. ASSESSMENT: Syncope History of orthostatic hypotension, taken off midodrine 1 month ago Coronary artery disease with previous three-vessel CABG, 06/2024, [place] to LAD, left radial to intermediate, SVG to PDA History of inferior STEMI and complete heart block, June 2024, requiring IABP and TVP History of hypothyroidism History of dermatomyositis PLAN: Trend troponins Obtain 2D echo to assess cardiac structure and function Continue telemetry monitoring to assess for any arrhythmias or significant bradycardia Obtain orthostatic blood pressures Recommend 30-day event monitor at the time of discharge Patient may require long-term monitoring with loop recorder insertion Further recommendations pending patient course Nurse practitioner note has been reviewed by physician. Signing provider agrees with the documented findings, assessment, and plan of care documented by POSTING MACHINE OPERATOR as a scribe. 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, kidney stone History of Any Multi-Drug Resistant Organisms: None Reported Past Surgical History: No Surgical Hx Reported, Tonsillectomy Additional Past Surgical History / Comment(s): cataract surgery (bilateral), oral surgery Past Anesthesia/Blood Transfusion Reactions: No Reported Reaction Past Psychological History: No Psychological Hx Reported Smoking Status: Never smoker Past Alcohol Use History: Occasional Past Drug Use History: None Reported - Past Family History Mother Family Medical History: Cancer Additional Family Medical History / Comment(s): from cancer Father Additional Family Medical History / Comment(s): from old age Medications and Allergies Home Medications Medication Instructions Recorded Confirmed Type Levothyroxine Sodium 200 mcg PO DAILY 09/08/22 08/17/24 History Gabapentin 800 mg PO HS 06/20/24 08/17/24 History Acetaminophen Tab [Tylenol] 1,000 mg PO Q6HR PRN tab 06/29/24 08/17/24 Rx Aspirin 325 mg PO DAILY #30 tab 06/29/24 08/17/24 Rx Atorvastatin [Lipitor] 40 mg PO DAILY #30 tab 06/29/24 08/17/24 Rx Clopidogrel [Plavix] 75 mg PO DAILY #30 tab 06/29/24 08/17/24 Rx Metoprolol Succinate (ER) [Toprol 25 mg PO DAILY #30 tab 06/29/24 08/17/24 Rx XL] Pantoprazole [Protonix] 40 mg PO AC-BRKFST #30 tab 06/29/24 08/17/24 Rx Tamsulosin [Flomax] 0.4 mg PO PC-BRKFST #30 cap 06/29/24 08/17/24 Rx Sennosides-Docusate Sodium 2 tab PO HS PRN 08/17/24 08/17/24 History [Senokot-S] mycophenolate mofetiL [Cellcept] 1,000 mg PO BID 08/17/24 08/17/24 History Allergies Allergy/AdvReac Type Severity Reaction Status Date / Time Iodinated Contrast Media Allergy Rash/Hives Verified 08/17/24 07:21 Physical Exam Vitals: Vital Signs Temp Pulse Resp BP Pulse Ox 08/17/24 08:35 72 16 122/85 99 08/17/24 07:08 68 18 122/90 98 08/17/24 05:11 97.7 F 62 16 124/91 98 Intake and Output 08/16/24 08/17/24 08/17/24 22:59 06:59 14:59 Other: Weight 104.326 kg Results 08/17/24 05:21 08/17/24 05:21 Cardiac Enzymes 08/17/24 08/17/24 Range/Units 05:21 05:21 AST 29 (17-59) U/L Troponin I 0.020 (0.000-0.034) ng/mL Coagulation 08/17/24 Range/Units 05:21 PT 11.2 (10.0-12.5) sec APTT 22.0 (22.0-30.0) sec CBC 08/17/24 Range/Units 05:21 WBC 7.5 (3.8-10.6) k/uL RBC 4.79 (4.30-5.90) m/uL Hgb 14.1 (13.0-17.5) gm/dL Hct 44.0 (39.0-53.0) % Plt Count 250 (150-450) k/uL Comprehensive Metabolic Panel 08/17/24 Range/Units 05:21 Sodium 137 (137-145) mmol/L Potassium 4.0 (3.5-5.1) mmol/L Chloride 107 (98-107) mmol/L Carbon Dioxide 24 (22-30) mmol/L BUN 22 H (9-20) mg/dL Creatinine 1.11 (0.66-1.25) mg/dL Glucose 118 H (74-99) mg/dL Calcium 9.0 (8.4-10.2) mg/dL AST 29 (17-59) U/L ALT 20 (4-49) U/L Alkaline Phosphatase 98 (38-126) U/L Total Protein 6.5 (6.3-8.2) g/dL Albumin 3.9 (3.5-5.0) g/dL Current Medications Generic Name Dose Route Start Last Admin Trade Name Freq PRN Reason Stop Dose Admin Acetaminophen 650 mg 08/17/24 06:32 Acetaminophen Tab 325 Mg Tab PO Q6HR PRN Mild Pain or Fever > 100.5 Acetaminophen 1,000 mg 08/17/24 07:39 Acetaminophen Tab 500 Mg Tab PO Q6HR PRN Fever And/ Or Mild Pain (1-3) Aspirin 325 mg 08/17/24 09:00 08/17/24 08:41 Aspirin 325 Mg Tab PO 325 mg DAILY GALO Administration Atorvastatin Calcium 40 mg 08/17/24 09:00 08/17/24 08:41 Atorvastatin 40 Mg Tab PO 40 mg DAILY GALO Administration Clopidogrel Bisulfate 75 mg 08/17/24 09:00 08/17/24 08:41 Clopidogrel 75 Mg Tab PO 75 mg DAILY GALO Administration Gabapentin 800 mg 08/17/24 21:00 Gabapentin 400 Mg Cap PO HS GALO Sodium Chloride 1,000 mls @ 75 mls/hr 08/17/24 06:45 08/17/24 07:22 Saline 0.9% IV 08/18/24 06:44 75 mls/hr .[id number] GALO Administration Levothyroxine Sodium 200 mcg 08/17/24 09:00 08/17/24 08:41 Levothyroxine 100 Mcg Tab PO 200 mcg DAILY@0630 GALO Administration Metoprolol Succinate 25 mg 08/17/24 09:00 08/17/24 08:41 Metoprolol Succinate (Er) 25 Mg Tab.Er.24h PO 25 mg DAILY GALO Administration Naloxone HCl 0.2 mg 08/17/24 06:24 Naloxone 0.4 Mg/Ml 1 Ml Vial IV Q2M PRN Opioid Reversal Intake and Output 08/16/24 08/17/24 08/17/24 22:59 06:59 14:59 Other: Weight 104.326 kg 08/17/24 05:21 08/17/24 05:21
--- NOTE | 2024-08-17 13:44 | P.HPIM ---
History of Present Illness H&P Date: 08/17/24 Chief Complaint: syncope Justin is a 68-year-old man with past medical history of coronary disease with a past medical history of CABG x 3 with HILLS to LAD left radial artery to intermediate saphenous vein graft to posterior descending coronary artery in June. It appears during that hospital course the patient had a STEMI and had a high degree AV block. He was taken to [facility] where he had gone into V-fib and was shocked. Wanted to third-degree heart block and had a transvenous pacemaker placed. He presents to the hospital for syncopal event x 2. It appears the patient was in his usual state of health up until 03 100 today. He was noted to be in the bathroom on the toilet and he reports he was urinating. He reports he then felt lightheaded and he had felt as if he is going to pass out and then he proceeded and passed out. His had reported that he had passed out for approximately few minutes. The patient had attempted to stand up and was walking towards bed but he passed out 1 more time. He reports that he did not have any preaural symptoms prior to. EMS had evaluated him and and it was reported that the patient politicians blood pressure had dropped when he does stand up. He then presented to the ER for further evaluation When he presented to the hospital he was hemodynamically stable afebrile was 98% room air. CBC showed white blood cell count of 7.5, hemoglobin was 14.1, platelet count was 250. BMP had shown no significant abnormalities. He had a CT head and neck spine which revealed no acute abnormalities. 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, kidney stone History of Any Multi-Drug Resistant Organisms: None Reported Past Surgical History: No Surgical Hx Reported, Tonsillectomy Additional Past Surgical History / Comment(s): cataract surgery (bilateral), oral surgery Past Anesthesia/Blood Transfusion Reactions: No Reported Reaction Past Psychological History: No Psychological Hx Reported Smoking Status: Never smoker Past Alcohol Use History: Occasional Past Drug Use History: None Reported - Past Family History Mother Family Medical History: Cancer Additional Family Medical History / Comment(s): from cancer Father Additional Family Medical History / Comment(s): from old age Medications and Allergies Home Medications Medication Instructions Recorded Confirmed Type Levothyroxine Sodium 200 mcg PO DAILY 09/08/22 08/17/24 History Gabapentin 800 mg PO HS 06/20/24 08/17/24 History Acetaminophen Tab [Tylenol] 1,000 mg PO Q6HR PRN tab 06/29/24 08/17/24 Rx Aspirin 325 mg PO DAILY #30 tab 06/29/24 08/17/24 Rx Atorvastatin [Lipitor] 40 mg PO DAILY #30 tab 06/29/24 08/17/24 Rx Clopidogrel [Plavix] 75 mg PO DAILY #30 tab 06/29/24 08/17/24 Rx Metoprolol Succinate (ER) [Toprol 25 mg PO DAILY #30 tab 06/29/24 08/17/24 Rx XL] Pantoprazole [Protonix] 40 mg PO AC-BRKFST #30 tab 06/29/24 08/17/24 Rx Tamsulosin [Flomax] 0.4 mg PO PC-BRKFST #30 cap 06/29/24 08/17/24 Rx Sennosides-Docusate Sodium 2 tab PO HS PRN 08/17/24 08/17/24 History [Senokot-S] mycophenolate mofetiL [Cellcept] 1,000 mg PO BID 08/17/24 08/17/24 History Allergies Allergy/AdvReac Type Severity Reaction Status Date / Time Iodinated Contrast Media Allergy Rash/Hives Verified 08/17/24 07:21 Physical Exam Vitals: Vital Signs Temp Pulse Resp BP Pulse Ox 08/17/24 08:35 72 16 122/85 99 08/17/24 07:08 68 18 122/90 98 08/17/24 05:11 97.7 F 62 16 124/91 98 Intake and Output 08/16/24 08/17/24 08/17/24 22:59 06:59 14:59 Other: Weight 104.326 kg General: non toxic, no distress, appears stated age male Derm: warm, dry Head: atraumatic, normocephalic, symmetric Eyes: EOMI, no lid lag, anicteric sclera, pupils equal round reactive to light ENT: Nose and ears atraumatic, no thrush, no pharyngeal erythema Neck: No thyromegaly, no cervical lymphadenopathy, trachea midline, supple Mouth: no lip lesion, mucus membranes moist Cardiovascular: S1S2 reg, no murmur, sternotomay scar seen Lungs: clear to ascultation bilateral, no ronchi, no rales, no wheeze, no accessory muscle use Abdominal: soft, nontender to palpation, no guarding, no appreciable organomegaly, normal bowel sounds Ext: no gross muscle atrophy, muscle strength muscle strength 5 out of 5 in all 4 extremities, no contractures Neuro: moving all extremties spontanously Psych: Alert, oriented, appropriate affect Results CBC & Chem 7: 08/17/24 05:21 08/17/24 05:21 Labs: Abnormal Lab Results - Last 24 Hours (Table) 08/17/24 Range/Units 05:21 BUN 22 H (9-20) mg/dL Glucose 118 H (74-99) mg/dL Assessment and Plan Assessment: #) Syncope, suspect orthostatic in nature. cardiac etiology possible but less likely. continue IVF and check serial orthostats. check limited echo. no driving x 6 months. 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
[2024-08-17] MEDS: GABAPENTIN 400 MG CAP PO SCH (21:45)
[2024-08-18 07:15] VITALS: RESP 16
[2024-08-18] MEDS: ENOXAPARIN 40 MG/0.4 ML SYRINGE SQ SCH (09:05)
--- NOTE | 2024-08-18 09:27 | P.PN ---
Subjective HISTORY OF PRESENT ILLNESS: This is a 68-year-old male with a past medical history significant for coronary artery disease with previous CABG, hypothyroidism, and dermatomyositis. Patient follows in the office with Dr. Seaman. We have been asked to see the patient in consultation for syncope and orthostatic hypotension. Patient examined at the [facility] in the ER. Patient states at about 3am today he got up to go to the bathroom. He states he got dizzy and passed out while he was up sitting on the toilet. Afterwards, he attempted to walk back to bed when he passed out and fell again. He states other than this episode, he has been doing well overall. He has been going to cardiac rehab. He has not been having chest pain or pressure. He denies having any shortness of breath. His family member at the bedside states he was taken off Midodrine recently by Dr. Seaman. DIAGNOSTICS: - EKG reveals sinus mechanism with T wave inversions inferiorly. - Laboratory data: WBC 7.5. Hemoglobin 14.1. Platelet count 250. Sodium 137. Potassium 4.0. BUN 22. Creatinine 1.11. Troponin 0.020. - Current home cardiac medications include aspirin 325 mg daily, Lipitor 40 mg daily, Plavix 75 mg daily, metoprolol succinate 25 mg daily - Most recent echocardiogram obtained in June 2024 revealed ejection fraction 55 to 60%, mild TR, mild MR 08/18/2024 Patient examined this morning at the bedside. Patient currently denies any chest pain or pressure. He denies any shortness of breath. Patient states he has not been out of bed since being in the hospital. He currently denies any dizziness or lightheadedness. Patient had orthostatic blood pressures obtained yesterday with a drop from 130 systolic to 104 systolic. Troponins are negative x 3. PHYSICAL EXAM: VITAL SIGNS: Reviewed. GENERAL: Well-developed in no acute distress. HEENT: Head is normocephalic. Pupils are equal, round. Sclerae anicteric. Mucous membranes of the mouth are moist. Neck supple. No JVD or thyromegaly LUNGS: Respirations even and unlabored. Lungs essentially clear to auscultation bilaterally. HEART: Regular rate and rhythm. S1 and S2 heard. ABDOMEN: Soft. Nondistended. Nontender. EXTREMITIES: Normal range of motion. No clubbing or cyanosis. Peripheral puls es intact. No lower extremity edema NEUROLOGIC: Awake and alert. Oriented x 3. ASSESSMENT: Syncope History of orthostatic hypotension, taken off midodrine 1 month ago Coronary artery disease with previous three-vessel CABG, 06/2024, HILLS to LAD, left radial to intermediate, SVG to PDA History of inferior STEMI and complete heart block, June 2024, requiring IABP and TVP History of hypothyroidism History of dermatomyositis PLAN: Awaiting 2D echo Begin midodrine 5 mg 3 times a day Continue to monitor orthostatic blood pressures Recommend 30-day event monitor at the time of discharge Patient may require long-term monitoring with loop recorder insertion Increase activity as tolerated Patient may be discharged home this afternoon from a cardiac standpoint pending his echocardiogram Patient to follow-up postdischarge with Dr. Seaman Nurse practitioner note has been reviewed by physician. Signing provider agrees with the documented findings, assessment, and plan of care documented by CHINESE LANGUAGE PROFESSOR as a scribe. Objective - Vital Signs Vital signs: Vital Signs Temp 97.6 F 08/18/24 07:00 Pulse 68 08/18/24 09:09 Resp 16 08/18/24 07:00 BP 127/77 08/18/24 09:09 Pulse Ox 98 08/18/24 07:00 FiO2 Intake & Output 08/17/24 08/18/24 08/18/24 18:59 06:59 18:59 Intake Total 0 240 Balance 0 240 Weight 104.326 kg Intake: Oral 0 240 Other: Voiding Method Urinal # Voids 1 - Labs CBC & Chem 7: 08/17/24 05:21 08/17/24 05:21
[2024-08-18 10:43] LABS: HCT 39.6 % (39.6-50.0); HGB 13.4 g/dL (13.0-17.0); MCH 30.2 pg (27.0-32.0); MCHC 33.8 g/dL (32.0-37.0); MCV 89.2 FL (80.0-97.0); Mean Platelet Volume 9.8 FL (9.5-12.2); NRBC Per 100 WBC 0 X 10*3/uL (0.00-0.01); Platelet Count 270 X 10*3/uL (140-440); RBC 4.44 X 10*6/uL (4.40-5.60); RDW 13.3 % (11.5-14.5); WBC 5.63 X 10*3/uL (4.50-10.00)
[2024-08-18 10:44] LABS: Basophils # (A) 0.02 X 10*3/uL (0.00-0.10); Basophils % (A) 0.4 %; Eosinophils % (A) 1.8 %; Lymphocytes # (A) 2.01 X 10*3/uL (0.90-5.00); Lymphocytes % (A) 35.7 %; Monocytes # (A) 0.46 X 10*3/uL (0.20-1.00); Monocytes % (A) 8.2 %; Neutrophils # (A) 3.02 X 10*3/uL (1.80-7.70); Neutrophils % (A) 53.5 %
[2024-08-18 11:18] LABS: BUN/Creat Ratio 17.11 Ratio (12.00-20.00); Blood Urea Nitrogen 15.4 mg/dL (9.0-27.0); Calcium 8.6 mg/dL (8.7-10.3); Carbon Dioxide 21.6 mmol/L (21.6-31.8); Chloride 108 mmol/L (96-109); Glucose 89 mg/dL (70-110); Potassium 4.4 mmol/L (3.5-5.5); Sodium 139 mmol/L (135-145)
[2024-08-18] MEDS: MIDODRINE 5 MG TAB PO SCH (11:45)
--- NOTE | 2024-08-18 12:05 | P.DS ---
Providers Date of admission: 08/17/24 06:35 Attending physician: Chet Roque MD Consults: 08/17/24 06:32 Consult Physician Urgent Consulting Provider: [facility] Reason/Comments: syncope, orthostatic hypotension Do you want consulting provider notified?: Yes [facility] Course: Justin is a 68-year-old man with past medical history of coronary disease with a past medical history of CABG x 3 with HILLS to LAD left radial artery to intermediate saphenous vein graft to posterior descending coronary artery in June. He had presented to hospital with syncopal event x 2. He reports that he was urine in the bathroom of lightheaded dizzy and passed out. He got up and walked to his bedroom and was noted to have passed out again however there is no preaural symptoms prior to. When he had presented to hospital CT head and neck revealed no acute process He was treated in the hospital with telemetry revealed no significant arrhythmias. He did have orthostatic blood pressure checked on the morning of August 18 which is still positive. He was then discharged home on the evening of August 18 with a 30-day front desk monitor. Recommend to wear compression stockings when ambulating at home. No driving x 6 months Assessment: #) Syncope, suspect orthostatic in nature. He remains orthostatic positive on blood pressure check on August 18. Continue compression stockings. No driving x 6 months. 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 #) hypothyroid , continue levothryoxine 200 mcg daily Patient Condition at Discharge: Fair Plan - Discharge Summary Discharge Rx Participant: No New Discharge Prescriptions: No Action Aspirin 325 mg PO DAILY #30 tab Atorvastatin [Lipitor] 40 mg PO DAILY #30 tab Metoprolol Succinate (ER) [Toprol XL] 25 mg PO DAILY #30 tab Acetaminophen Tab [Tylenol] 1,000 mg PO Q6HR PRN tab PRN Reason: Fever And/ Or Mild Pain (1-3) Levothyroxine Sodium 200 mcg PO DAILY Gabapentin 800 mg PO HS Tamsulosin [Flomax] 0.4 mg PO PC-BRKFST #30 cap Clopidogrel [Plavix] 75 mg PO DAILY #30 tab Pantoprazole [Protonix] 40 mg PO AC-BRKFST #30 tab mycophenolate mofetiL [Cellcept] 1,000 mg PO BID Sennosides-Docusate Sodium [Senokot-S] 2 tab PO HS PRN PRN Reason: Constipation Discharge Medication List Levothyroxine Sodium 200 mcg PO DAILY 09/08/22 [History] Gabapentin 800 mg PO HS 06/20/24 [History] Acetaminophen Tab [Tylenol] 1,000 mg PO Q6HR PRN tab 06/29/24 [Rx] Aspirin 325 mg PO DAILY #30 tab 06/29/24 [Rx] Atorvastatin [Lipitor] 40 mg PO DAILY #30 tab 06/29/24 [Rx] Clopidogrel [Plavix] 75 mg PO DAILY #30 tab 06/29/24 [Rx] Metoprolol Succinate (ER) [Toprol XL] 25 mg PO DAILY #30 tab 06/29/24 [Rx] Pantoprazole [Protonix] 40 mg PO AC-BRKFST #30 tab 06/29/24 [Rx] Tamsulosin [Flomax] 0.4 mg PO PC-BRKFST #30 cap 06/29/24 [Rx] Sennosides-Docusate Sodium [Senokot-S] 2 tab PO HS PRN 08/17/24 [History] mycophenolate mofetiL [Cellcept] 1,000 mg PO BID 08/17/24 [History] Follow up Appointment(s)/Referral(s): Elan Og DO [Primary Care Provider] - 1-2 days Discharge Disposition: HOME SELF-CARE
[2024-08-18] MEDS: BACITRACIN ZINC 500 UNIT/GM OINT 28.4 GM TUBE TOPICAL SCH (12:35)
--- NOTE | 2024-08-18 14:09 | CA ---
Transthoracic Echo Report Name: Justin Guerra Age: 68 Gender: M : 1955 Exam Date: 08/18/2024 11:18 Exam Location: [facility] Ht (in): 68 Wt (lb): 230 Ordering Physician: Primo Thomas MD Attending/Referring Phys: [employer] Shop Supervisor Cris Will RDCS Procedure CPT: Indications: Syncope Cardiac Hx: Technical Quality: Fair Contrast 1: Definity Total Dose (mL): Contrast 2: Total Dose (mL): MEASUREMENTS (Male / Female) Normal Values 2D ECHO LV Diastolic Diameter PLAX 4.0 cm 4.2 - 5.9 / 3.9 - 5.3 cm LV Systolic Diameter PLAX 2.9 cm IVS Diastolic Thickness 1.7 cm 0.6 - 1.0 / 0.6 - 0.9 cm LVPW Diastolic Thickness 1.6 cm 0.6 - 1.0 / 0.6 - 0.9 cm LV Relative Wall Thickness 0.8 LV Diastolic Volume MOD BP 115.3 cm??? 67 - 155 / 56 - 104 cm??? LV Systolic Volume MOD BP 61.3 cm??? 22 - 58 / 19 - 49 cm??? LV Ejection Fraction MOD BP 46.9 % >= 55 % LV Cardiac Index MOD BP 1447.5 cm???/min???m??? LV Diastolic Volume MOD 4C 114.0 cm??? LV Systolic Volume MOD 4C 60.4 cm??? LV Ejection Fraction MOD 4C 47.0 % LV Cardiac Index MOD 4C 1436.1 cm???/min???m??? LV Diastolic Length 4C 7.6 cm LV Systolic Length 4C 7.1 cm LV Diastolic Volume MOD 2C 114.7 cm??? LV Systolic Volume MOD 2C 57.9 cm??? LV Ejection Fraction MOD 2C 49.5 % LV Cardiac Index MOD 2C 1520.8 cm???/min???m??? LV Diastolic Length 2C 7.3 cm LV Systolic Length 2C 6.3 cm FINDINGS Left Ventricle Moderately increased septal wall thickness. Mildly increased left ventricular systolic volume. Mildly decreased left ventricular ejection fraction. Left ventricular ejection fraction is estimated at 45-50 %. Right Ventricle Right Atrium Left Atrium Mitral Valve Aortic Valve Tricuspid Valve Pulmonic Valve Pericardium No pericardial effusion. Aorta CONCLUSIONS Limited 2-D echo Left ventricular ejection fraction 45-50% No pericardial effusion Previewed by: Dr. Rosendo Torres DO (Electronically Signed) Final Date: 18 August 2024 14:07
[2024-08-18 14:37] VITALS: TEMP 97.3
[2024-08-18 17:50] VITALS: BP 118/76; PULSE 65
== END 2024-08-18 18:10 | disposition home or self-care (01) ==
LOC: EC 05:08 → 6NMEDSUR 06:35
PROVIDERS: ADMIT Internal Medicine; ATTEND Internal Medicine
DX: I95.1 Orthostatic hypotension (principal); I25.10 Atherosclerotic heart disease of native coronary artery without angina pectoris; S09.90XA Unspecified injury of head, initial encounter; W18.30XA Fall on same level, unspecified, initial encounter; Y92.002 Bathroom of unspecified non-institutional (private) residence as the place of occurrence of the external cause; I44.2 Atrioventricular block, complete; M33.13 Other dermatomyositis without myopathy; E03.9 Hypothyroidism, unspecified; G89.29 Other chronic pain; G62.89 Other specified polyneuropathies; I25.2 Old myocardial infarction; M54.2 Cervicalgia; Z79.02 Long term (current) use of antithrombotics/antiplatelets; Z79.624 Long term (current) use of inhibitors of nucleotide synthesis; Z79.82 Long term (current) use of aspirin; Z79.899 Other long term (current) drug therapy; Z79.890 Hormone replacement therapy; Z91.041 Radiographic dye allergy status; Z95.1 Presence of aortocoronary bypass graft; Z95.0 Presence of cardiac pacemaker
CPT/HCPCS: 96361 ×3; 96372; 96360; 99285; 36415; 93005; 93270; 80053; 80048; 84484; 85025 ×2; 85610; 85730; 72125; 70450; G0378 ×4; C8924; J1650; Q9957; 93308

== ENCOUNTER → 2024-11-22 | Outpatient (CLI) | payer MEDICARE ==
[2024-11-22 15:19] LABS: Hepatitis B Surface Antigen Nonreactive (Nonreactive); Hepatitis C IgG Antibody Nonreactive (Nonreactive)
[2024-11-22 15:26] LABS: Hepatitis B Surface AB- Quant 3.5 mIU/mL
== END | disposition home or self-care (01) ==
LOC: LABWHC1 11:28
PROVIDERS: ATTEND Internal Medicine Rheumatology
DX: Z51.81 Encounter for therapeutic drug level monitoring (principal); Z76.0 Encounter for issue of repeat prescription; M33.13 Other dermatomyositis without myopathy; J84.9 Interstitial pulmonary disease, unspecified; L21.9 Seborrheic dermatitis, unspecified; D89.89 Other specified disorders involving the immune mechanism, not elsewhere classified; D84.9 Immunodeficiency, unspecified
CPT/HCPCS: 36415; 86704; 86706; 86803; 87340

== ENCOUNTER → 2024-11-23 | Outpatient (CLI) | payer MEDICARE | END | disposition home or self-care (01) | LOC: LABWHC1 10:08 | PROVIDERS: ATTEND Internal Medicine Rheumatology | DX: Z51.81 Encounter for therapeutic drug level monitoring (principal); Z76.0 Encounter for issue of repeat prescription; M33.13 Other dermatomyositis without myopathy; J84.9 Interstitial pulmonary disease, unspecified; L21.9 Seborrheic dermatitis, unspecified; D89.89 Other specified disorders involving the immune mechanism, not elsewhere classified; D84.9 Immunodeficiency, unspecified | CPT/HCPCS: 36415; 86480 ==

== ENCOUNTER → 2024-11-24 | Outpatient (CLI) | payer MEDICARE ==
--- NOTE | 2024-11-24 11:33 | CT ---
EXAMINATION TYPE: CT chest wo con DATE OF EXAM: 11/24/2024 11:21 AM COMPARISON: 08/17/2024 CLINICAL INDICATION: Male, 69 years old with history of J84.9 pulmonary disease; PH, TECHNIQUE: Multiple axial images were obtained through the chest. Sagittal and coronal reformats were created for review. Contrast used: mL of (None if empty) Oral contrast used: (None if empty) CT DLP: 1361 mGycm, Automated exposure control for dose reduction was used. FINDINGS: LUNGS: There is interstitial thickening worse in the lung bases. No evidence for honeycombing few sca ttered groundglass opacities are present. No evidence for focal consolidation, pneumothorax or pleur al effusion. LARGE AIRWAYS: Mild bronchiectasis noted particularly in the lung bases. PLEURA: No pleural effusion or thickening. AIRWAY: Patent and unremarkable. HEART: Cardiomegaly is demonstrated. Moderate coronary artery calcifications present. Message appenda ge occlusion device. Aortic valve consultations present. Post coronary artery bypass graft changes. MEDIASTINUM: No gross evidence of adenopathy. VASCULATURE: No aortic aneurysm. MUSCULOSKELETAL: Mild disc degeneration changes are present throughout the thoracolumbar spine second anna marie to osteophyte formation and facet joint arthropathy. SOFT TISSUES/LYMPH NODES: Unremarkable. LOWER NECK: No significant findings. UPPER ABDOMEN: No significant findings. IMPRESSION: 1. Increased interstitial lung disease changes worse in the lung bases possibly representing early p ulmonary fibrosis. Superimposed sequela of atypical infection not excluded. No evidence for honeycomb ing at this time. 2. Cardiomegaly with postsurgical changes to the coronary arteries. Left atrial appendage occlusion device present. [facility], , 11/24/2024 11:30 AM
== END | disposition home or self-care (01) ==
LOC: RADCTMAIN 09:56
PROVIDERS: ATTEND Internal Medicine Critical Care Medicine
DX: J84.9 Interstitial pulmonary disease, unspecified (principal); I51.7 Cardiomegaly
CPT/HCPCS: 71250

== ENCOUNTER 2025-01-06 15:58 | Emergency (ER) | payer MEDICARE ==
--- NOTE | 2025-01-06 17:06 | ED ---
Male Urogenital HPI - General Chief complaint: Urogenital Stated complaint: blood in urine, weakness Time Seen by Provider: 01/06/25 17:01 Source: patient, RN notes reviewed Mode of arrival: ambulatory Limitations: no limitations - History of Present Illness Initial comments: 69-year-old male presenting for hematuria. States 2 hours ago he noticed his urine was bright red. States he had 2 episodes of this. Denies any abdominal pain or flank pain. He has never had this before. He does take Plavix and aspirin status post CABG surgery in June of last year. He is a lifetime non- smoker. States he does have a history of kidney stones. Denies dysuria, urinary frequency, or urinary urgency. 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 - Related Data Home Medications Medication Instructions Recorded Confirmed Levothyroxine Sodium 200 mcg PO DAILY 09/08/22 01/01/25 Gabapentin 800 mg PO HS 06/20/24 01/01/25 mycophenolate mofetiL [Cellcept] 1,000 mg PO BID 08/17/24 01/01/25 Previous Rx's Medication Instructions Recorded Acetaminophen Tab [Tylenol] 1,000 mg PO Q6HR PRN tab 06/29/24 Aspirin 325 mg PO DAILY #30 tab 06/29/24 Atorvastatin [Lipitor] 40 mg PO DAILY #30 tab 06/29/24 Clopidogrel [Plavix] 75 mg PO DAILY #30 tab 06/29/24 Metoprolol Succinate (ER) [Toprol 25 mg PO DAILY #30 tab 06/29/24 XL] Allergies Allergy/AdvReac Type Severity Reaction Status Date / Time Iodinated Contrast Media Allergy Rash/Hives Verified 01/01/25 09:10 Review of Systems ROS Statement: Those systems with pertinent positive or pertinent negative responses have been documented in the HPI. ROS Other: All systems not noted in ROS Statement are negative. 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, kidney stone History of Any Multi-Drug Resistant Organisms: None Reported Past Surgical History: No Surgical Hx Reported, Coronary Bypass/CABG, Tons illectomy Additional Past Surgical History / Comment(s): cataract surgery (bilateral), oral surgery, heart surgery june 2024 Past Anesthesia/Blood Transfusion Reactions: No Reported Reaction Past Psychological History: No Psychological Hx Reported Smoking Status: Never smoker Past Alcohol Use History: Occasional Past Drug Use History: None Reported - Past Family History Mother Family Medical History: Cancer Additional Family Medical History / Comment(s): from cancer Father Additional Family Medical History / Comment(s): from old age General Exam Limitations: no limitations General appearance: alert, in no apparent distress Head exam: Present: atraumatic, normocephalic, normal inspection Eye exam: Present: normal appearance, PERRL, EOMI. Absent: scleral icterus, conjunctival injection, periorbital swelling ENT exam: Present: normal exam, mucous membranes moist Respiratory exam: Present: normal lung sounds bilaterally. Absent: respiratory distress, wheezes, rales, rhonchi, stridor Cardiovascular Exam: Present: regular rate, normal rhythm, normal heart sounds. Absent: systolic murmur, diastolic murmur, rubs, gallop, clicks GI/Abdominal exam: Present: soft, normal bowel sounds. Absent: distended, tenderness, guarding, rebound, rigid Back exam: Present: normal inspection, full ROM. Absent: tenderness, CVA tenderness (R), CVA tenderness (L) Neurological exam: Present: alert, oriented X3 Psychiatric exam: Present: normal affect, normal mood Skin exam: Present: warm, dry, intact, normal color. Absent: rash Course Vital Signs 01/06/25 01/06/25 16:02 19:18 Temperature 97.5 F L 98.0 F Pulse Rate 78 71 Respiratory 20 18 Rate Blood Pressure 157/102 138/99 O2 Sat by Pulse 99 94 L Oximetry Medical Decision Making - Medical Decision Making Was pt. sent in by a medical professional or institution (, PA, ORTHOPEDIC SHOE FITTER, urgent care, hospital, or intermediate...) When possible be specific @ -No Did you speak to anyone other than the patient for history (EMS, parent, family, police, friend...)? What history was obtained from this source @ -No Did you review nursing and triage notes (agree or disagree)? Why? @ -I reviewed and agree with nursing and triage notes Were old charts reviewed (outside hosp., previous admission, EMS record, old EKG, old radiological studies, urgent care reports/EKG's, intermediate records)? Report findings @ -No old charts were reviewed Differential Diagnosis (chest pain, altered mental status, abdominal pain women, abdominal pain men, vaginal bleeding, weakness, fever, dyspnea, syncope, headache, dizziness, GI bleed, back pain, seizure, CVA, palpatations, mental health, musculoskeletal)? @ -Bladder carcinoma, BPH, prostatitis, kidney stone, glomerulonephritis, polycystic kidney disease, renal trauma, EKG interpreted by me (3pts min.). @ -None X-rays interpreted by me (1pt min.). @ -None done CT interpreted by me (1pt min.). @ -CT abdomen pelvis with contrast reveals mild left hydronephrosis secondary to obstructing 4 mm calculus at ureteropelvic junction/proximal left ureter, increased interstitial lung markings worse in lung base U/S interpreted by me (1pt. min.). @ -None done What testing was considered but not performed or refused? (CT, X-rays, U/S, labs)? Why? @ -None What meds were considered but not given or refused? Why? @ -None Did you discuss the management of the patient with other professionals (professionals i.e. , PA, ORTHOPEDIC SHOE FITTER, lab, RT, psych nurse, social insurance specialist, rim roller setter, teacher, admissions officer, pillowcase cleaner)? Give summary @ -No Was smoking cessation discussed for >3mins.? @ -No Was critical care preformed (if so, how long)? @ -No Were there social determinants of health that impacted care today? How? ( Homelessness, low income, unemployed, alcoholism, drug addiction, transportation, low edu. Level, literacy, decrease access to med. care, [facility], rehab)? @ -No Was there de-escalation of care discussed even if they declined (Discuss DNR or withdrawal of care, Hospice)? DNR status @ -No What co-morbidities impacted this encounter? (DM, HTN, Smoking, COPD, CAD, Cancer, CVA, ARF, Chemo, Hep., AIDS, mental health diagnosis, sleep apnea, morbid obesity)? @ -None Was patient admitted / discharged? Hospital course, mention meds given and route, prescriptions, significant lab abnormalities, going to OR and other pertinent info. @ -Discharge. 69-year-old male presenting to episodes of painless hematuria. Patient does take Plavix and aspirin. Patient is afebrile with no CVA tenderness. No urinary symptoms. Patient is well-appearing, nontoxic. Abdomen is soft and nonsurgical. Lab work largely unremarkable. White blood cell count normal at 7, hemoglobin 15, creatinine/BUN normal. Urinalysis reveals large blood, 6 white blood cell however not indicative of urinary tract infection. CT abdomen pelvis with contrast reveals mild left hydronephrosis secondary to obstructing 4 mm calculus at the ureteropelvic junction/proximal left ureter. Discussed results with patient. Patient remains asymptomatic. Patient states he has Flomax at home he will take for the kidney stone. Appropriate return precautions and follow-up care discussed. Case was discussed with my ED attending Dr. Sevilla. Undiagnosed new problem with uncertain prognosis? @ -No Drug Therapy requiring intensive monitoring for toxicity (Heparin, Nitro, Insulin, Cardizem)? @ -No Were any procedures done? @ -No Diagnosis/symptom? @ -Left nephrolithiasis, hematuria Acute, or Chronic, or Acute on Chronic? @ -Acute Uncomplicated (without systemic symptoms) or Complicated (systemic symptoms)? @ -Uncomplicated Side effects of treatment? @ -No Exacerbation, Progression, or Severe Exacerbation? @ -No Poses a threat to life or bodily function? How? (Chest pain, USA, PR, pneumonia, PE, COPD, DKA, ARF, appy, cholecystitis, CVA, Diverticulitis, Homicidal, Suicidal, threat to staff... and all critical care pts) @ -No - Lab Data Result diagrams: 01/06/25 17:16 01/06/25 17:16 Lab Results 01/06/25 01/06/25 01/06/25 Range/Units 17:16 17:16 17:17 WBC 7.46 (4.50-10.00) 10*3/uL RBC 4.83 (4.40-5.60) 10*6/uL Hgb 15.1 (13.0-17.0) g/dL Hct 44.2 (39.6-50.0) % MCV 91.5 (80.0-97.0) fL MCH 31.3 (27.0-32.0) pg MCHC 34.2 (32.0-37.0) g/dL Plt Count 311 (140-440) 10*3/uL MPV 9.5 (9.5-12.2) fL Immature Gran % (Auto) 0.4 % Neutrophils % 60.4 % Lymphocytes % 29.0 % Monocytes % 9.0 % Eosinophils % 0.9 % Basophils % 0.3 % Immature Gran # 0.03 (0.00-0.04) 10*3/uL Neutrophils # 4.51 (1.80-7.70) 10*3/uL Lymphocytes # 2.16 (0.90-5.00) 10*3/uL Monocytes # 0.67 (0.20-1.00) 10*3/uL Eosinophils # 0.07 (0.04-0.35) 10*3/uL Basophils # 0.02 (0.00-0.10) 10*3/uL PT 10.8 (10.0-12.5) sec INR 1.0 (<1.2) APTT 22.8 (22.0-30.0) sec Sodium 137 (137-145) mmol/L Potassium 4.1 (3.5-5.1) mmol/L Chloride 102 (98-107) mmol/L Carbon Dioxide 29 (22-30) mmol/L Anion Gap 6 mmol/L BUN 19 (9-20) mg/dL Creatinine 1.01 (0.66-1.25) mg/dL Est GFR (CKD-EPI)AfAm 86 (>60 ml/min/1.73 sqM) Est GFR (CKD-EPI)NonAf 75 (>60 ml/min/1.73 sqM) Glucose 123 H (74-99) mg/dL Calcium 9.4 (8.4-10.2) mg/dL Total Bilirubin 1.1 (0.2-1.3) mg/dL AST 22 (17-59) U/L ALT 26 (4-49) U/L Alkaline Phosphatase 82 (38-126) U/L Total Protein 5.9 L (6.3-8.2) g/dL Albumin 3.5 (3.5-5.0) g/dL Urine Color Urine Appearance (Clear) Urine pH (5.0-8.0) Ur Specific [place] (1.001-1.035) Urine Protein (Negative) Urine Glucose (UA) (Negative) Urine Ketones (Negative) Urine Blood (Negative) Urine Nitrite (Negative) Urine Bilirubin (Negative) Urine Urobilinogen (<2.0) mg/dL Ur Leukocyte Esterase (Negative) Urine RBC (0-5) /hpf Urine WBC (0-5) /hpf Ur Squamous Epith Cells (0-4) /hpf Urine Mucus (None) /hpf 01/06/25 Range/Units 17:40 WBC (4.50-10.00) 10*3/uL RBC (4.40-5.60) 10*6/uL Hgb (13.0-17.0) g/dL Hct (39.6-50.0) % MCV (80.0-97.0) fL MCH (27.0-32.0) pg MCHC (32.0-37.0) g/dL Plt Count (140-440) 10*3/uL MPV (9.5-12.2) fL Immature Gran % (Auto) % Neutrophils % % Lymphocytes % % Monocytes % % Eosinophils % % Basophils % % Immature Gran # (0.00-0.04) 10*3/uL Neutrophils # (1.80-7.70) 10*3/uL Lymphocytes # (0.90-5.00) 10*3/uL Monocytes # (0.20-1.00) 10*3/uL Eosinophils # (0.04-0.35) 10*3/uL Basophils # (0.00-0.10) 10*3/uL PT (10.0-12.5) sec INR (<1.2) APTT (22.0-30.0) sec Sodium (137-145) mmol/L Potassium (3.5-5.1) mmol/L Chloride (98-107) mmol/L Carbon Dioxide (22-30) mmol/L Anion Gap mmol/L BUN (9-20) mg/dL Creatinine (0.66-1.25) mg/dL Est GFR (CKD-EPI)AfAm (>60 ml/min/1.73 sqM) Est GFR (CKD-EPI)NonAf (>60 ml/min/1.73 sqM) Glucose (74-99) mg/dL Calcium (8.4-10.2) mg/dL Total Bilirubin (0.2-1.3) mg/dL AST (17-59) U/L ALT (4-49) U/L Alkaline Phosphatase (38-126) U/L Total Protein (6.3-8.2) g/dL Albumin (3.5-5.0) g/dL Urine Color Yellow Urine Appearance Clear (Clear) Urine pH 6.0 (5.0-8.0) Ur Specific [place] 1.010 (1.001-1.035) Urine Protein Trace H (Negative) Urine Glucose (UA) Negative (Negative) Urine Ketones Negative (Negative) Urine Blood Large H (Negative) Urine Nitrite Negative (Negative) Urine Bilirubin Negative (Negative) Urine Urobilinogen <2.0 (<2.0) mg/dL Ur Leukocyte Esterase Negative (Negative) Urine RBC >182 H (0-5) /hpf Urine WBC 6 H (0-5) /hpf Ur Squamous Epith Cells <1 (0-4) /hpf Urine Mucus Rare H (None) /hpf Disposition Clinical Impression: Left nephrolithiasis, Hematuria Disposition: HOME SELF-CARE Condition: Stable Instructions (If sedation given, give patient instructions): Kidney Stones (ED) Additional Instructions: Take Flomax once daily for 5 days. Drink plenty of fluids. Return to the ER if you begin to experience intractable pain, fevers, or you are unable to hold down fluids or food due to vomiting. Please return to the Emergency Department if symptoms worsen or any other concerns. Is patient prescribed a controlled substance at d/c from ED?: No Referrals: Elan Og DO [Primary Care Provider] - 1-2 days Time of Disposition: 19:09
[2025-01-06] MEDS: diphenhydrAMINE 50 MG/ML 1 ML VIAL IVP STA (17:10)
[2025-01-06] MEDS: methylPREDNISolone SOD SUCCI 125 MG/2 ML VIAL IV STA (17:12)
[2025-01-06] MEDS: FAMOTIDINE 20 MG/2 ML VIAL IV STA (17:12)
[2025-01-06 17:24] LABS: Basophils # (A) 0.02 10*3/uL (0.00-0.10); Basophils % (A) 0.3 %; Eosinophils # (A) 0.07 10*3/uL (0.04-0.35); Eosinophils % (A) 0.9 %; HCT 44.2 % (39.6-50.0); HGB 15.1 g/dL (13.0-17.0); Lymphocytes # (A) 2.16 10*3/uL (0.90-5.00); MCH 31.3 pg (27.0-32.0); MCHC 34.2 g/dL (32.0-37.0); MCV 91.5 fL (80.0-97.0); Mean Platelet Volume 9.5 fL (9.5-12.2); Monocytes # (A) 0.67 10*3/uL (0.20-1.00); Neutrophils # (A) 4.51 10*3/uL (1.80-7.70); Neutrophils % (A) 60.4 %; Platelet Count 311 10*3/uL (140-440); RBC 4.83 10*6/uL (4.40-5.60); RDW 14.9 % (11.5-14.5); WBC 7.46 10*3/uL (4.50-10.00)
[2025-01-06 17:35] LABS: Partial Thromboplastin Time 22.8 sec (22.0-30.0); Prothrombin Time 10.8 sec (10.0-12.5)
[2025-01-06 17:45] LABS: ALT 26 U/L (4-49); AST 22 U/L (17-59); African American GFR (CKD) 86 (>60 ml/min/1.73 sqM); Albumin 3.5 g/dL (3.5-5.0); Alkaline Phosphatase 82 U/L (38-126); Anion Gap 6 mmol/L; Blood Urea Nitrogen 19 mg/dL (9-20); Calcium 9.4 mg/dL (8.4-10.2); Carbon Dioxide 29 mmol/L (22-30); Chloride 102 mmol/L (98-107); Glucose 123 mg/dL (74-99); Non-African American GFR(CKD) 75 (>60 ml/min/1.73 sqM); Potassium 4.1 mmol/L (3.5-5.1); Sodium 137 mmol/L (137-145); Total Bilirubin 1.1 mg/dL (0.2-1.3); Total Protein 5.9 g/dL (6.3-8.2)
[2025-01-06 18:06] LABS: Appearance,Urine Clear (Clear); Bilirubin,Urine Negative (Negative); Blood,Urine Large (Negative); Color,Urine Yellow; Glucose,Urine (UA) Negative (Negative); Ketones,Urine Negative (Negative); Leukocyte Esterase,Urine Negative (Negative); Mucus,Urine Rare /hpf; Nitrite,Urine Negative (Negative); Protein,Urine Trace (Negative); RBC,Urine >182 /hpf (0-5); Squamous Epithelial Cell,Urine <1 /hpf (0-4); Urobilinogen,Urine <2.0 mg/dL (<2.0); WBC,Urine 6 /hpf (0-5)
--- NOTE | 2025-01-06 18:44 | CT ---
EXAMINATION TYPE: CT abdomen pelvis w con DATE OF EXAM: 01/06/2025 6:16 PM COMPARISON: 10/02/2022 CLINICAL INDICATION: Male, 69 years old with history of hematuria; hematuria TECHNIQUE: Axial CT abdomen pelvis w con;Sagittal and coronal reformats were created on a separate w orkstation. Contrast used:80 mL of Isovue 300 with IV Contrast, (none if empty) Oral contrast used: without Oral Contrast (none if empty) CT DLP: 1632.2 mGycm, Automated exposure control for dose reduction was used. FINDINGS: LOWER CHEST: The heart is mildly enlarged for size. Severe coronary artery atherosclerosis. Sternotom y wires are present. Streaky airspace opacities are seen in the lung bases. ABDOMEN LIVER: Unremarkable GALLBLADDER AND BILE DUCTS: Unremarkable. PANCREAS: Unremarkable. SPLEEN: Unremarkable. ADRENAL GLANDS: Unremarkable. KIDNEYS AND URETERS: Mild left hydronephrosis secondary obstructing 4 mm calculus in the ureteral pel grecia junction/proximal left ureter. No right renal calculus in the right obstructive uropathy. PELVIS BLADDER: No evidence for wall thickening or mass given limitations of exam. REPRODUCTIVE: Unremarkable. ABDOMEN & PELVIS STOMACH AND BOWEL: No evidence of bowel obstruction. The appendix is normal. Small hiatal hernia. PERITONEUM/RETROPERITONEUM: No evidence of pneumoperitoneum or free fluid. VASCULATURE: Mild atherosclerotic calcifications are present throughout the abdominal aorta and its b ranches. No evidence of aortic aneurysm. MUSCULOSKELETAL: No acute osseous abnormalities. Moderate disc degeneration changes are present throu ghout the thoracolumbar spine. LYMPH NODES: No gross evidence for lymphadenopathy. SOFT TISSUE/ABDOMINAL WALL: Fat-containing right inguinal hernia. IMPRESSION: 1. Mild left hydronephrosis secondary obstructing 4 mm calculus in the ureteral pelvic junction/prox imal left ureter. No right renal calculus in the right obstructive uropathy. 2. Cardiomegaly 3. Increased interstitial lung markings worse in the lung bases possibly representing early pulmonar y fibrosis versus sequela of atypical infection. 4. Small hiatal hernia present. [facility], , 01/06/2025 6:42 PM
[2025-01-06 19:19] VITALS: BP 138/99; PULSE 71; RESP 18; TEMP 98
== END 2025-01-06 19:19 | disposition home or self-care (01) ==
LOC: EC 15:58
DX: N13.2 Hydronephrosis with renal and ureteral calculous obstruction (principal); Z91.041 Radiographic dye allergy status
CPT/HCPCS: 36415; 80053; 85025; 85610; 85730; 81001; 74177; 99285; 96374; 96375 ×2; J1200; Q9967; J2919; J1308